=== PATIENT | male | born 1955 | race Caucasian/White ===

== ENCOUNTER → 2020-05-13 | Outpatient (CLI) | payer MEDICARE ==
--- NOTE | 2020-05-13 18:09 | XR ---
Cervical spine HISTORY: Increased neck pain, fall 05/12/2020 8 views of the cervical spine submitted, no comparisons Patient shows posterior cervical fusion change at C3-T1. Cervical vertebral bodies show preserved hei ght and alignment. There is multilevel spondylosis. No evident listhesis on flexion and extension vie ws, the lower cervical spine is not well seen. Oblique images somewhat limited to evaluate foramina, difficult to exclude foraminal encroachment. Odontoid view is limited, questionable lucency present a t the base of the dens. There are dense vascular calcifications present. Bone mineralization is reduc ed. IMPRESSION: Exam is limited for evaluation. Cannot exclude the dens fracture, consider CT scan for be tter evaluation. A Red level critical message alert has been initiated for Ava Herbert MD via the [employer] System on 05/13/2020 6:06 PM. This message alert has been sent to Ava Herbert MD via t he preferences provided by the clinician for the receipt of Radiology Critical Findings. Message ID [id number].
== END | disposition home or self-care (01) ==
LOC: RADXRMAIN 14:08
PROVIDERS: ATTEND Internal Medicine
DX: S12.110A Anterior displaced Type II dens fracture, initial encounter for closed fracture (principal)
CPT/HCPCS: 72052

== ENCOUNTER → 2020-05-25 | Outpatient (CLI) | payer MEDICARE ==
--- NOTE | 2020-05-25 12:10 | CT ---
EXAMINATION TYPE: CT cervical spine wo con DATE OF EXAM: 05/25/2020 COMPARISON: Plain film 05/13/2020 HISTORY: cervical pain post fall post op CT DLP: 662.6 mGycm Automated exposure control for dose reduction was used. TECHNIQUE: CT scan of the cervical spine is obtained without contrast, axial images are obtained, sagittal and c oronal reformatted images are also reviewed. FINDINGS: Nondisplaced type II dens fracture is present as suspected on plain film, possible remote type I dens fracture also seen. Ossification of the posterior longitudinal ligament extends into the spinal vanesa l from C2 level inferiorly through the upper thoracic spine, there is mass effect on the cervical cor d especially at the level of the fracture, spinal stenosis is approximately 8 mm at C2-3 level. Multi level posterior laminectomies are present from C3 through C7, posterior fusion is present from C3 to T1. Multilevel spondylosis is present with loss of disc height. Arthropathy changes are present at th e atlantodens joint. Multilevel foraminal encroachment present to include C2-3 on the left, uncoverte bral joint hypertrophy and facet arthropathy, C3-4 greater on the right, C4-5 left greater than right , C5-6 bilaterally, C6-7 bilaterally As described calcifications present at the carotid bifurcations. Lung apices within normal limits. St ernoclavicular joints show arthropathy change. There is artifact due to patient's posterior hardware. IMPRESSION: Type II dens fracture of questionable age. Remote type I dens fracture also present, suspect arthropa thy changes as described, ossification of posterior longitudinal ligament causing some spinal stenosi s. Multilevel foraminal encroachment, postop changes. A Red level critical message alert has been initiated for Ava Herbert MD via the [email or web address] System on 05/25/2020 12:06 PM. This message alert has been sent to vAa Herbert MD via t sandra preferences provided by the clinician for the receipt of Radiology Critical Findings. Message ID [id number].
== END | disposition home or self-care (01) ==
LOC: RADCTMAIN 09:54
PROVIDERS: ATTEND Internal Medicine
DX: S12.9XXA Fracture of neck, unspecified, initial encounter (principal); Z98.890 Other specified postprocedural states; Z88.1 Allergy status to other antibiotic agents
CPT/HCPCS: 72125

== ENCOUNTER 2020-05-28 11:23 | Emergency (ER) | payer MEDICARE ==
[2020-05-28 11:31] VITALS: RESP 18; TEMP 98
--- NOTE | 2020-05-28 13:57 | ED ---
Neck Injury/Pain HPI - General Chief Complaint: Neck Pain/Injury Stated Complaint: Neck Pain Time Seen by Provider: 05/28/20 11:32 Source: RN notes reviewed Mode of arrival: ambulatory Limitations: no limitations - History of Present Illness Initial Comments: This is a 65-year-old male with a history of Parkinson's disease who fell sometime last week he states he fell forward and seem to catch himself. Base was having some neck pain since then. He follow-up with his doctor and had a CT of the neck done on the ninth of this month. He was finally contacted again he was found have a nondisplaced type II dens fracture was seen on the plain film. He also approximately a remote type I fracture also ossification of the posterior longitudinal ligament extending into the spinal canal from C2 level inferiorly to the upper thoracic spine there was mass effect on the cervical or distress at the level of the fracture, spinal stenosis is approximately 8 mm at the C2 3 level also evidence of previous surgeries with multiple posterior laminectomies and posterior fusion of C3 through T1. No neurological deficits below this level. No numbness tingling or loss of function he does have some neck pain he states he was sent in by his doctor for further evaluation and likely transfer to a tertiary care center. He denies any fevers chills nausea vomiting sweats or other symptoms. He believes he fell due to his Parkinson's disease. He didn't fall from a standing height. Her injuries. MD Complaint: neck pain, neck injury - Related Data Home Medications Medication Instructions Recorded Confirmed Amantadine HCl [Gocovri] 274 mg PO HS 05/28/20 05/28/20 Atorvastatin [Lipitor] 20 mg PO DAILY 05/28/20 05/28/20 Carbidopa-Levodopa 25-250 mg 1 tab PO Q4H 05/28/20 05/28/20 [Sinemet 25-250] Cevimeline [Evoxac] 30 mg PO TID 05/28/20 05/28/20 Fesoterodine Fumarate [Toviaz] 8 mg PO DAILY 05/28/20 05/28/20 Furosemide [Lasix] 40 mg PO BID 05/28/20 05/28/20 HYDROcodone/APAP 10-325MG [[place] 1 tab PO Q4-6H 05/28/20 05/28/20 10-325] Levothyroxine Sodium [Synthroid] 50 mcg PO DAILY 05/28/20 05/28/20 Mirabegron [Myrbetriq] 50 mg PO DAILY 05/28/20 05/28/20 Potassium Chloride 10 meq PO BID 05/28/20 05/28/20 Quinapril HCl [Accupril] 40 mg PO BID 05/28/20 05/28/20 SILVER sulfADIAZINE Cream 1 applic TOPICAL DAILY 05/28/20 05/28/20 [Silvadene 1% Cream] Tamsulosin [Flomax] 0.4 mg PO DAILY 05/28/20 05/28/20 rOPINIRole HCL [Requip] 4 mg PO TID 05/28/20 05/28/20 Allergies Allergy/AdvReac Type Severity Reaction Status Date / Time No Known Allergies Allergy Verified 05/28/20 13:10 Review of Systems ROS Statement: Those systems with pertinent positive or pertinent negative responses have been documented in the HPI. ROS Other: All systems not noted in ROS Statement are negative. Past Medical History Additional Past Medical History / Comment(s): parkinson's, chronic lower back History of Any Multi-Drug Resistant Organisms: None Reported Past Surgical History: Orthopedic Surgery Additional Past Surgical History / Comment(s): L leg Past Psychological History: No Psychological Hx Reported Smoking Status: Current some day smoker Past Alcohol Use History: Occasional Past Drug Use History: Marijuana General Exam - General Exam Comments Initial Comments: this is a well-developed well-nourished awake alert oriented 4 male with a Margi Coma Scale of 15 Limitations: no limitations General appearance: alert, in no apparent distress Head exam: Present: atraumatic, normocephalic, normal inspection Eye exam: Present: normal appearance, PERRL, EOMI. Absent: scleral icterus, conjunctival injection, periorbital swelling ENT exam: Present: normal exam, mucous membranes moist Neck exam: Present: normal inspection. Absent: tenderness, meningismus, lymphadenopathy Respiratory exam: Present: normal lung sounds bilaterally. Absent: respiratory distress, wheezes, rales, rhonchi, stridor Cardiovascular Exam: Present: regular rate, normal rhythm, normal heart sounds. Absent: systolic murmur, diastolic murmur, rubs, gallop, clicks GI/Abdominal exam: Present: soft, normal bowel sounds. Absent: distended, tenderness, guarding, rebound, rigid Extremities exam: Present: normal inspection, full ROM, normal capillary refill. Absent: tenderness, pedal edema, joint swelling, calf tenderness Back exam: Present: normal inspection Neurological exam: Present: alert, oriented X3, CN II-XII intact Psychiatric exam: Present: normal affect, normal mood Skin exam: Present: warm, dry, intact, normal color. Absent: rash Course Vital Signs 05/28/20 11:28 Temperature 98 F Pulse Rate 48 L Respiratory 18 Rate Blood Pressure 119/74 O2 Sat by Pulse 93 L Oximetry Medical Decision Making - Medical Decision Making Did review the imaging and reports I did discuss the case with the patient as well as Dr. Pierce Thomas. He is agreed to accept the patient transfer ER to ER. - EKG Data -: EKG Interpreted by Me EKG shows normal: sinus rhythm Disposition Clinical Impression: C2 cervical fracture, Parkinsons disease Disposition: OTHER INSTITUTION NOT DEFINED Condition: Fair Referrals: Ava Herbert MD [Primary Care Provider] - 1-2 days - Out of Hospital Transfer - Req. Specs Out of Hospital Transfer - Requested Specifics: Other Emergency Center
[2020-05-28] MEDS ORDERED: fentaNYL (PF) 50 MCG/ML 2 ML AMP IV STA (14:25)
[2020-05-28 14:36] VITALS: BP 119/79; PULSE 80
== END 2020-05-28 14:36 | disposition other institution (70) ==
LOC: EC 11:23
DX: S12.112A Nondisplaced Type II dens fracture, initial encounter for closed fracture (principal); G20 Parkinson's disease; G89.29 Other chronic pain; M54.5 Low back pain; F17.200 Nicotine dependence, unspecified, uncomplicated; Z79.899 Other long term (current) drug therapy; Z79.890 Hormone replacement therapy; Z98.1 Arthrodesis status; W19.XXXA Unspecified fall, initial encounter
CPT/HCPCS: 93005; 99284; 96374; J3010

== ENCOUNTER → 2020-09-07 | Outpatient (CLI) | payer MEDICARE ==
--- NOTE | 2020-09-07 15:07 | CT ---
EXAMINATION TYPE: CT cervical spine wo con DATE OF EXAM: 09/07/2020 COMPARISON: 05/25/2020 HISTORY: Non displaced Type II dense fracture. Pt states he fell head first into doorway 10 weeks ago . Pt hx Parkinsons, not able to control any shaking. CT DLP: 823.[address] of the cervical spine was performed with bone and soft tissue window settings submitted . Coronal and sagittal reconstruction is obtained. Again noted are fractures of the dens including type I and type II types. No significant callus forma tion. No acute fractures identified. Extensive postsurgical change of decompressive laminectomy extending from C2-3 through the upper thor acic spine. Pedicular screws are in place. Multilevel fusion. Extensive calcification of the posterio r longitudinal ligament thinning throughout the cervical spine from C2 through T2. Streak artifact fr om patient's surgical hardware limits evaluation. Again noted is moderate multilevel degenerative dis c disease. As described calcifications present at the carotid bifurcations. Lung apices within normal limits. St ernoclavicular joints show arthropathy change. IMPRESSION: 1. Ununited type I and type II fractures of the dens unchanged from prior study. 2. Extensive postsurgical change. 3. Severe calcification of the posterior longitudinal ligament
== END | disposition home or self-care (01) ==
LOC: RADCTMAIN 14:29
PROVIDERS: ATTEND Internal Medicine
DX: S12.112A Nondisplaced Type II dens fracture, initial encounter for closed fracture (principal)
CPT/HCPCS: 72125

== ENCOUNTER 2021-03-09 23:16 | Emergency (ER) | payer MEDICARE ==
[2021-03-09 23:35] VITALS: TEMP 98.1
--- NOTE | 2021-03-10 00:11 | ED ---
Fall HPI - General Chief Complaint: Fall Stated Complaint: Possible Broken Neck, fell today Time Seen by Provider: 03/09/21 23:39 Source: patient, RN notes reviewed, old records reviewed Mode of arrival: wheelchair Limitations: no limitations - History of Present Illness Initial Comments: This is a 65-year-old male DF for evaluation he rodney from Parkinson's disease. Patient of fall from standing. Patient complaining of severe neck pain with history of neck surgery. Patient is a mildly poor strain secondary to clinical condition. Patient's follows from standing over his dog prior to arrival. Otherwise no headache chest pain shortness breath or abdominal pain just pain in the back of his neck. Patient Dese feels like he broke a bone he presents in his own cervical collar MD Complaint: fall -: hour(s) Fall From: standing When Fall Occurred: 1 hour [employer] Fall Witnessed: no Place Fall Occurred: home Loss of Consciousness: none Prolonged Down Time?: no Symptoms Prior to Fall: none Location: neck Severity: severe Severity scale (1-10): 7 Quality: sharp Context: tripped/slipped Associated Symptoms: denies - Related Data Home Medications Medication Instructions Recorded Confirmed Amantadine HCl [Gocovri] 274 mg PO HS 05/28/20 05/28/20 Atorvastatin [Lipitor] 20 mg PO DAILY 05/28/20 05/28/20 Carbidopa-Levodopa 25-250 mg 1 tab PO Q4H 05/28/20 05/28/20 [Sinemet 25-250] Cevimeline [Evoxac] 30 mg PO TID 05/28/20 05/28/20 Fesoterodine Fumarate [Toviaz] 8 mg PO DAILY 05/28/20 05/28/20 Furosemide [Lasix] 40 mg PO BID 05/28/20 05/28/20 HYDROcodone/APAP 10-325MG [[place] 1 tab PO Q4-6H 05/28/20 05/28/20 10-325] Levothyroxine Sodium [Synthroid] 50 mcg PO DAILY 05/28/20 05/28/20 Mirabegron [Myrbetriq] 50 mg PO DAILY 05/28/20 05/28/20 Potassium Chloride [Potassium 10 meq PO BID 05/28/20 05/28/20 Chloride ER] Quinapril HCl [Accupril] 40 mg PO BID 05/28/20 05/28/20 SILVER sulfADIAZINE Cream 1 applic TOPICAL DAILY 05/28/20 05/28/20 [Silvadene 1% Cream] Tamsulosin [Flomax] 0.4 mg PO DAILY 05/28/20 05/28/20 rOPINIRole HCL [Requip] 4 mg PO TID 05/28/20 05/28/20 Allergies Allergy/AdvReac Type Severity Reaction Status Date / Time No Known Allergies Allergy Verified 03/09/21 23:35 Review of Systems ROS Statement: Those systems with pertinent positive or pertinent negative responses have been documented in the HPI. ROS Other: All systems not noted in ROS Statement are negative. Past Medical History Additional Past Medical History / Comment(s): parkinson's, chronic lower back History of Any Multi-Drug Resistant Organisms: MRSA Date of last positivie culture/infection: 08/17/20 MDRO Source:: MRSA KNEE Past Surgical History: Orthopedic Surgery Additional Past Surgical History / Comment(s): L leg Past Psychological History: No Psychological Hx Reported Smoking Status: Current some day smoker Past Alcohol Use History: Occasional Past Drug Use History: Marijuana General Exam - General Exam Comments Initial Comments: GCS of 15 Airways patent Trachea is midline Breath sounds equal bilaterally Limitations: no limitations General appearance: alert, in no apparent distress Head exam: Present: atraumatic, normocephalic, normal inspection Eye exam: Present: normal appearance, PERRL, EOMI. Absent: scleral icterus, conjunctival injection, periorbital swelling ENT exam: Present: normal exam, mucous membranes moist Neck exam: Present: normal inspection. Absent: tenderness, meningismus, lymphadenopathy Respiratory exam: Present: normal lung sounds bilaterally. Absent: respiratory distress, wheezes, rales, rhonchi, stridor Cardiovascular Exam: Present: regular rate, normal rhythm, normal heart sounds. Absent: systolic murmur, diastolic murmur, rubs, gallop, clicks GI/Abdominal exam: Present: soft, normal bowel sounds. Absent: distended, tenderness, guarding, rebound, rigid Extremities exam: Present: normal inspection, full ROM, normal capillary refill. Absent: tenderness, pedal edema, joint swelling, calf tenderness Back exam: Present: normal inspection Neurological exam: Present: alert, oriented X3, CN II-XII intact Psychiatric exam: Present: normal affect, normal mood Skin exam: Present: warm, dry, intact, normal color. Absent: rash Course Vital Signs 03/09/21 03/10/21 23:31 01:35 Temperature 98.1 F Pulse Rate 75 87 Respiratory 18 18 Rate Blood Pressure 140/75 124/86 O2 Sat by Pulse 99 98 Oximetry - Reevaluation(s) Reevaluation #1: 03/10/21 02:48 Medical record is reviewed Reevaluation #2: 03/10/21 02:49 Patient informed results questions have been answered Reevaluation #3: 03/10/21 02:49 Patient's pain is controlled with Medical Decision Making - Medical Decision Making 65 male to the emergency room today. Patient presents today for evaluation re gards to fall from standing with C2 spine fracture. - Lab Data Result diagrams: 03/10/21 02:18 03/10/21 02:18 Lab Results 03/10/21 03/10/21 03/10/21 Range/Units 02:18 02:18 02:18 WBC 9.6 (3.8-10.6) k/uL RBC 5.04 (4.30-5.90) m/uL Hgb 14.5 (13.0-17.5) gm/dL Hct 44.3 (39.0-53.0) % MCV 87.8 (80.0-100.0) fL MCH 28.7 (25.0-35.0) pg MCHC 32.7 (31.0-37.0) g/dL RDW 14.3 (11.5-15.5) % Plt Count 287 (150-450) k/uL MPV 7.1 Neutrophils % 70 % Lymphocytes % 19 % Monocytes % 6 % Eosinophils % 3 % Basophils % 1 % Neutrophils # 6.7 (1.3-7.7) k/uL Lymphocytes # 1.8 (1.0-4.8) k/uL Monocytes # 0.6 (0-1.0) k/uL Eosinophils # 0.3 (0-0.7) k/uL Basophils # 0.1 (0-0.2) k/uL PT 10.5 (9.0-12.0) sec INR 1.0 (<1.2) APTT 25.7 (22.0-30.0) sec Sodium 139 (137-145) mmol/L Potassium 3.9 (3.5-5.1) mmol/L Chloride 101 (98-107) mmol/L Carbon Dioxide 30 (22-30) mmol/L Anion Gap 8 mmol/L BUN 23 H (9-20) mg/dL Creatinine 0.72 (0.66-1.25) mg/dL Est GFR (CKD-EPI)AfAm >90 (>60 ml/min/1.73 sqM) Est GFR (CKD-EPI)NonAf >90 (>60 ml/min/1.73 sqM) Glucose 108 H (74-99) mg/dL Calcium 9.5 (8.4-10.2) mg/dL Phosphorus 3.4 (2.5-4.5) mg/dL Magnesium 2.3 (1.6-2.3) mg/dL Total Bilirubin 0.5 (0.2-1.3) mg/dL AST 24 (17-59) U/L ALT 7 (4-49) U/L Alkaline Phosphatase 117 (38-126) U/L Troponin I (0.000-0.034) ng/mL Total Protein 7.0 (6.3-8.2) g/dL Albumin 3.9 (3.5-5.0) g/dL 03/10/21 Range/Units 02:18 WBC (3.8-10.6) k/uL RBC (4.30-5.90) m/uL Hgb (13.0-17.5) gm/dL Hct (39.0-53.0) % MCV (80.0-100.0) fL MCH (25.0-35.0) pg MCHC (31.0-37.0) g/dL RDW (11.5-15.5) % Plt Count (150-450) k/uL MPV Neutrophils % % Lymphocytes % % Monocytes % % Eosinophils % % Basophils % % Neutrophils # (1.3-7.7) k/uL Lymphocytes # (1.0-4.8) k/uL Monocytes # (0-1.0) k/uL Eosinophils # (0-0.7) k/uL Basophils # (0-0.2) k/uL PT (9.0-12.0) sec INR (<1.2) APTT (22.0-30.0) sec Sodium (137-145) mmol/L Potassium (3.5-5.1) mmol/L Chloride (98-107) mmol/L Carbon Dioxide (22-30) mmol/L Anion Gap mmol/L BUN (9-20) mg/dL Creatinine (0.66-1.25) mg/dL Est GFR (CKD-EPI)AfAm (>60 ml/min/1.73 sqM) Est GFR (CKD-EPI)NonAf (>60 ml/min/1.73 sqM) Glucose (74-99) mg/dL Calcium (8.4-10.2) mg/dL Phosphorus (2.5-4.5) mg/dL Magnesium (1.6-2.3) mg/dL Total Bilirubin (0.2-1.3) mg/dL AST (17-59) U/L ALT (4-49) U/L Alkaline Phosphatase (38-126) U/L Troponin I <0.012 (0.000-0.034) ng/mL Total Protein (6.3-8.2) g/dL Albumin (3.5-5.0) g/dL - Radiology Data Radiology results: report reviewed (2. C-spine positive for C2 fracture chest and pelvis x-ray negative for acute disease), image reviewed Disposition Clinical Impression: Fall, Cervical spine fracture, Fracture of cervical spinous process Disposition: OTHER INSTITUTION NOT DEFINED Condition: Fair Is patient prescribed a controlled substance at d/c from ED?: No Referrals: None,Stated [REFERRING] - 1-2 days
--- NOTE | 2021-03-10 01:27 | CT ---
EXAMINATION TYPE: CT brain cspine wo con DATE OF EXAM: 03/10/2021 COMPARISON: CT scan cervical spine 09/07/2020. HISTORY: fall Pain CT DLP: 1540.1 mGycm Automated exposure control for dose reduction was used. Ventricles have normal size. There is no mass effect nor midline shift. There is no sign of intracran ial hemorrhage. Calvarium is intact. There is no evidence of cerebral edema. Skull base is intact. Th ere is normal aeration of the mastoid sinuses. There is straightening of the cervical spine. There is calcification in the posterior longitudinal li gament through the entire cervical spine. There is posterior fusion surgery with rods and screws from the level of C3-T1 level. There is transverse fracture through the odontoid process. There is fractu re of the spinous process of C2 without displacement. There is multilevel posterior laminectomy defec t in the cervical spine. IMPRESSION: No acute intracranial abnormality. There is nondisplaced odontoid process fracture without significant change in position compared to la st exam. Extensive calcification along the posterior longitudinal ligament with thickening not changed compare d to old exam. There is an acute fracture of the spinous process of C2 vertebra which is a change compared to old ex am.
[2021-03-10] MEDS ORDERED: MORPHINE SULFATE 4 MG/ML SYRINGE IM STA (01:39)
[2021-03-10] MEDS ORDERED: SODIUM CHLORIDE 0.9% 1,000 ML IV STA (02:05)
[2021-03-10] MEDS ORDERED: MORPHINE SULFATE 4 MG/ML SYRINGE IV STA (02:05)
--- NOTE | 2021-03-10 02:29 | XR ---
EXAMINATION TYPE: XR pelvis AP view DATE OF EXAM: 03/10/2021 COMPARISON: NONE HISTORY: Fall. Pain TECHNIQUE: Single view FINDINGS: Pelvic ring is intact. There is hypertrophic acetabular spurring. Hip joint spaces are fair ly normal. There is some deformity of the right inferior pubic ramus. This could be an acute nondispl aced fracture. IMPRESSION: Possible nondisplaced acute fracture right inferior pubic ramus. Osteoarthritis in both h ip joints. No hip fracture.
--- NOTE | 2021-03-10 02:31 | XR ---
EXAMINATION TYPE: XR chest 1V DATE OF EXAM: 03/10/2021 COMPARISON: NONE HISTORY: Fall. Trauma. TECHNIQUE: Single view FINDINGS: Heart appears enlarged. There is no heart failure. Lungs are clear of consolidation. There is some coarsening of interstitial markings. There is no pleural effusion. There are arthritic change s in the shoulder joints. IMPRESSION: Cardiomegaly. Mild pulmonary fibrosis. No heart failure.
[2021-03-10 02:41] LABS: Basophils # (A) 0.1 k/uL (0-0.2); Basophils % (A) 1 %; Eosinophils # (A) 0.3 k/uL (0-0.7); Eosinophils % (A) 3 %; HCT 44.3 % (39.0-53.0); HGB 14.5 gm/dL (13.0-17.5); Lymphocytes # (A) 1.8 k/uL (1.0-4.8); Lymphocytes % (A) 19 %; MCH 28.7 pg (25.0-35.0); MCHC 32.7 g/dL (31.0-37.0); MCV 87.8 fL (80.0-100.0); Mean Platelet Volume 7.1; Monocytes # (A) 0.6 k/uL (0-1.0); Monocytes % (A) 6 %; Neutrophils # (A) 6.7 k/uL (1.3-7.7); Neutrophils % (A) 70 %; Platelet Count 287 k/uL (150-450); RBC 5.04 m/uL (4.30-5.90); RDW 14.3 % (11.5-15.5); WBC 9.6 k/uL (3.8-10.6)
[2021-03-10 02:46] LABS: Partial Thromboplastin Time 25.7 sec (22.0-30.0); Prothrombin Time 10.5 sec (9.0-12.0)
[2021-03-10 03:02] LABS: ALT 7 U/L (4-49); AST 24 U/L (17-59); African American GFR (CKD) >90 (>60 ml/min/1.73 sqM); Albumin 3.9 g/dL (3.5-5.0); Alkaline Phosphatase 117 U/L (38-126); Anion Gap 8 mmol/L; Blood Urea Nitrogen 23 mg/dL (9-20); Calcium 9.5 mg/dL (8.4-10.2); Carbon Dioxide 30 mmol/L (22-30); Chloride 101 mmol/L (98-107); Glucose 108 mg/dL (74-99); Magnesium 2.3 mg/dL (1.6-2.3); Non-African American GFR(CKD) >90 (>60 ml/min/1.73 sqM); Phosphorus 3.4 mg/dL (2.5-4.5); Potassium 3.9 mmol/L (3.5-5.1); Sodium 139 mmol/L (137-145); Total Bilirubin 0.5 mg/dL (0.2-1.3)
[2021-03-10 05:43] VITALS: BP 116/70; PULSE 88; RESP 16
== END 2021-03-10 05:04 | disposition other institution (70) ==
LOC: EC 23:16
DX: S12.9XXA Fracture of neck, unspecified, initial encounter (principal); F12.90 Cannabis use, unspecified, uncomplicated; G20 Parkinson's disease; W01.0XXA Fall on same level from slipping, tripping and stumbling without subsequent striking against object, initial encounter
CPT/HCPCS: 36415; 80053; 83735; 84100; 84484; 85025; 85610; 85730; 72170; 71045; 72125; 70450; 99284; 96374; 96361; J2270

== ENCOUNTER 2021-09-09 11:12 | Observation (INO) | payer MEDICARE, OTHER ==
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
[2021-09-09 12:02] LABS: Basophils # (A) 0.1 k/uL (0-0.2); Basophils % (A) 1 %; Eosinophils # (A) 0.2 k/uL (0-0.7); Eosinophils % (A) 3 %; HCT 48.9 % (39.0-53.0); HGB 15.6 gm/dL (13.0-17.5); Lymphocytes # (A) 1.7 k/uL (1.0-4.8); Lymphocytes % (A) 22 %; MCH 29.4 pg (25.0-35.0); MCHC 31.9 g/dL (31.0-37.0); MCV 92.3 fL (80.0-100.0); Mean Platelet Volume 7.6; Monocytes # (A) 0.3 k/uL (0-1.0); Monocytes % (A) 5 %; Neutrophils # (A) 5.1 k/uL (1.3-7.7); Neutrophils % (A) 68 %; Platelet Count 239 k/uL (150-450); RDW 12.8 % (11.5-15.5); WBC 7.6 k/uL (3.8-10.6)
[2021-09-09 12:15] LABS: ALT 6 U/L (4-49); AST 26 U/L (17-59); African American GFR (CKD) >90 (>60 ml/min/1.73 sqM); Albumin 3.9 g/dL (3.5-5.0); Alkaline Phosphatase 106 U/L (38-126); Anion Gap 6 mmol/L; Blood Urea Nitrogen 23 mg/dL (9-20); Calcium 9.1 mg/dL (8.4-10.2); Carbon Dioxide 29 mmol/L (22-30); Chloride 105 mmol/L (98-107); Glucose 109 mg/dL (74-99); Magnesium 2.2 mg/dL (1.6-2.3); Non-African American GFR(CKD) >90 (>60 ml/min/1.73 sqM); Sodium 140 mmol/L (137-145); Total Bilirubin 0.5 mg/dL (0.2-1.3); Total Protein 6.9 g/dL (6.3-8.2)
[2021-09-09 12:28] LABS: INR 0.9 (<1.2); Partial Thromboplastin Time 22.1 sec (22.0-30.0); Prothrombin Time 10.4 sec (9.0-12.0)
[2021-09-09 12:32] LABS: T4, Free (Free Thyroxine) 0.88 ng/dL (0.78-2.19)
--- NOTE | 2021-09-09 12:37 | XR ---
EXAMINATION TYPE: XR chest 2V DATE OF EXAM: 09/09/2021 COMPARISON: Chest x-ray March 10, 2021 HISTORY: Dysrhythmia. Parkinson's disease. TECHNIQUE: Frontal and lateral views of the chest are obtained. FINDINGS: There is chronic parenchymal changes bilaterally without suspicious new focal air space op acity, pleural effusion, or pneumothorax seen. Improvement inspiration current study. The cardiomega ly redemonstrated. Surgical change to the cervical spine is partially imaged. IMPRESSION: Chronic changes and cardiomegaly without acute pulmonary process. No significant change from prior.
[2021-09-09] MEDS ORDERED: NALOXONE 0.4 MG/ML 1 ML VIAL IV PRN (13:54)
[2021-09-09] MEDS: SODIUM CHLORIDE 0.9% 1,000 ML IV SCH (14:55)
[2021-09-09] MEDS ORDERED: MEDIHONEY TOPICAL SCH (15:45)
--- NOTE | 2021-09-09 15:47 | P.HPIM ---
History of Present Illness H&P Date: 09/09/21 Chief Complaint: left lower extremity cellulitis recurrent/possible SVT. HISTORY OF PRESENT ILLNESS: this is a 66-year-old white male with a previous medical history significant for hypertension and hypertensive cardiovascular disease, hyperlipidemia, history of detrusor stability, Percocet disease, with the significant tremor, and significant gait dysfunction with recurrent cellulitis of the left lower extremity and prior history of osteomyelitis of the left knee and multiple hospitalization of the left lower extremity cellulitis mostly at [facility], history of degenerative disc disease of the cervical spine with posterior cervical discectomy with fusion and history of C1 and C2 fracture was under the care of neurosurgery no surgical intervention was in a hard cervical collar that was removed by the neurosurgeon, patient has not been seen by myself since February of last year after he was moved to a program called [facility] pain is in [place] and they would not allow him to come and see me as a primary care physician, since they have their own physician he has been under the care of Dr. Kourtney Landa, and patient was brought into the ER at [facility] today because of increased cellulitis of the left lower extremity despite current treatment plan, and patient became quite a bit diaphoretic and short of breath, his heart rate was in the range of 200 however there was no rhythm strips or any records available at the time of evaluation, patient was seen in the emergency department, he was started on IV antibiotic in the form of Ancef he was admitted to the hospital to a telemetry unit, we will be seen in consultation by cardiology as well as by infectious disease. REVIEW OF SYSTEMS: Constitutional: No documented fever, no chills, no night sweats. No weight change. no weakness, fatigue or lethargy. No daytime sleepiness. HEENT: No headache. No blurred vision or double vision, no loss of vision. No loss of Hearing, no ringing in the ears, no dizziness. No nasal drainage or congestion. No epistaxis. No sore throat. Lungs: No shortness of breath, no cough, no sputum production. No wheezing. Reports dyspnea with activity. Cardiovascular: No chest pain, positive for lower extremity edema. No palpitations. No paroxysmal nocturnal dyspnea. No orthopnea. positive for lightheadedness or dizziness. No syncopal episodes. Abdominal: Reports abdominal pain. No nausea, vomiting. No diarrhea. No constipation. No bloody or tarry stools reports loss of appetite. Genitourinary: No dysuria, increased frequency, urgency. No urinary retention. Musculoskeletal: No myalgias. positive for muscle weakness, positive for gait dysfunction,positive for frequent falls.positive for back pain and neck pain. Integumentary: there is left knee wounds that is shallow with clean base , there is nail changes , there is redness with warmth to the left lower extremity Neurologic: No aphasia. No facial droop. No change in mentation. No head injury. No headache. No paralysis. No paresthesia. Psychiatric: positive for depression. No anxiety. No mood swings. Endocrine: No abnormal blood sugars. No weight change. PAST MEDICAL HISTORY: Parkinson disease. Hypertension and hypertensive cardiovascular disease Hyperlipidemia Detrusor stability. C2 fracture. Spondylosis of the cervical spine status post posterior cervical discectomy with fusion Chronic cellulitis of the left lower extremity. Enlarged prostate. Hypothyroidism. PAST SURGICAL HISTORY: left leg surgery Posterior cervical discectomy with fusion SOCIAL HISTORY: patient used to smoke about pack every day he smoked for about 5-10 years, he quit smoking after that, he denies any alcohol ingestion no drug use or abuse, he currently resides at home and he is part of [facility] program that they have their own primary care physicians. FAMILY HISTORY: father at the age of 82 from metastatic prostate cancer mother from emphysema patient had a brother who at age of 58 from lung cancer patient had 2 sisters one of breast cancer and COPD and the other one of diabetes complication patient has one daughter who is healthy PHYSICAL EXAMINATION: General: 66-year-old male laying down in bed in no distress. HEENT: Head is atraumatic, normocephalic, pupils were equal round reactive to light and recommendation, extraocular muscle movement were intact, sclera nonicteric, conjunctivae were pale, mucous membranes of the mouth are somewhat dry. Neck: Supple, no JVP, normal carotid upstroke bilaterally, no lymphadenopathy. Chest: Decreased breath sounds at the bases, few rhonchi, no expiratory wheezes, no chest wall tenderness, no intercostal retractions. Heart: First heart sound is normal, second heart sound is normal there is systolic exertion murmur 2/6 located in the left sternal border. Abdomen: Soft, nontender, nondistended, positive bowel sounds, no hepatosplenomegaly. Extremities: there is +2 edema, no calf tenderness, the left lower extremity with significant erythema extending from the ankle all the way up to the knee with a wound that is shallow at the left knee suggestive of cellulitis, dorsalis pedis +1 bilaterally. Neurologic examination: Patient is awake alert and oriented X3, cranial nerves II-12 appear grossly intact, muscle power were 4 out of 5 in upper extremities and 4 out of 5 in bilateral lower extremities, deep tendon reflexes were depressed bilaterally, significant tremors especially in the right upper extremity, significant stiffness in both lower extremities. ASSESSMENT AND PLAN: 1. left lower extremity cellulitis Start the patient on Silvadene cream 1% to be applied once every day with an Noam wrap start the patient on cefazolin 2 g IV piggyback every 8 hours, keep the leg elevated, check C-reactive protein, repeat CBC tomorrow morning, infectious disease consultation, follow-up with the patient. Continue to apply Medihoney to the left knee wound. 2. Reported episodes of palpitations with presyncope without documentation of arrhythmia. Place the patient on telemetry unit obtain cardiology consultation. Echocardiogram along with carotid ultrasound. Discontinue Lasix start the patient on IV fluid resuscitation the form of normal saline at 75 mL an hour to rule out any orthostatic hypotension. 3. Hypertension and hypertensive cardiovascular disease . continue quinapril 40 mg orally twice every day. 4. hyperlipidemia.continue atorvastatin 20 mg orally once a day. 5. Parkinson disease.continue patient on Sinemet 25/250 one tablet 5 times every day, continue amantadine 200 mg orally twice every day, continue Requip 4 mg orally 3 times every day. 6. Detrusor instability.continue Myrbetriq 50 mg orally once every day. 7. Enlarged prostate .continue Flomax 0.4 mg once every day. 8. Hypothyroidism.continue patient on levothyroxin 50 g orally once every day. 9. DVT prophylaxis. Lovenox 40 mg subcutaneously every 24 hours 10. GI prophylaxis. Protonix 40 mg orally once every day. 11. Admitted to inpatient. Estimated length of stay 2 midnights. 12. Full code. Past Medical History Additional Past Medical History / Comment(s): parkinson's, chronic lower back History of Any Multi-Drug Resistant Organisms: MRSA Date of last positivie culture/infection: 08/17/20 MDRO Source:: MRSA KNEE Past Surgical History: Orthopedic Surgery Additional Past Surgical History / Comment(s): L leg Past Psychological History: No Psychological Hx Reported Smoking Status: Current some day smoker Past Alcohol Use History: Occasional Past Drug Use History: Marijuana Medications and Allergies Home Medications Medication Instructions Recorded Confirmed Type Atorvastatin [Lipitor] 20 mg PO HS 05/28/20 09/09/21 History Carbidopa-Levodopa 25-250 mg 1 tab PO Q8H 05/28/20 09/09/21 History [Sinemet 25-250] Furosemide [Lasix] 40 mg PO BID 05/28/20 09/09/21 History Levothyroxine Sodium [Synthroid] 50 mcg PO DAILY 05/28/20 09/09/21 History Mirabegron [Myrbetriq] 50 mg PO DAILY 05/28/20 09/09/21 History Potassium Chloride [Potassium 10 meq PO BID 05/28/20 09/09/21 History Chloride ER] Quinapril HCl [Accupril] 40 mg PO BID 05/28/20 09/09/21 History SILVER sulfADIAZINE Cream 1 applic TOPICAL DAILY 05/28/20 09/09/21 History [Silvadene 1% Cream] Tamsulosin [Flomax] 0.4 mg PO HS 05/28/20 09/09/21 History rOPINIRole HCL [Requip] 4 mg PO TID 05/28/20 09/09/21 History Carbidopa-Levodopa 25-250 mg 1 tab PO BID PRN 09/09/21 09/09/21 History [Sinemet 25-250] Medihoney 80% Gel 1 applic TOPICAL DAILY 09/09/21 09/09/21 History amantadine HCL 200 mg PO BID 09/09/21 09/09/21 History Allergies Allergy/AdvReac Type Severity Reaction Status Date / Time No Known Allergies Allergy Verified 09/09/21 15:00 Physical Exam Vitals: Vital Signs Temp Pulse Resp BP Pulse Ox 09/09/21 14:55 85 18 173/79 96 09/09/21 11:46 75 18 140/86 96 09/09/21 11:16 98 F 87 18 138/69 94 L Intake and Output 09/09/21 09/09/21 09/09/21 06:59 14:59 22:59 Other: Weight 113.398 kg Results CBC & Chem 7: 09/09/21 11:52 09/09/21 11:52 Labs: Abnormal Lab Results - Last 24 Hours (Table) 09/09/21 Range/Units 11:52 BUN 23 H (9-20) mg/dL Glucose 109 H (74-99) mg/dL
[2021-09-09] MEDS: CARBIDOPA-LEVODOPA 25-250 MG 1 EACH TAB PO SCH ×2 (19:15→23:52)
[2021-09-09] MEDS: SILVER sulfADIAZINE Cream 400 GM 1 APPLIC APPLIC TOPICAL SCH (19:15)
[2021-09-09] MEDS: rOPINIRole HCL 4 MG TABLET PO SCH ×2 (19:16→21:33)
[2021-09-09] MEDS: TAMSULOSIN 0.4 MG CAP.ER.24H PO SCH (21:15)
[2021-09-09] MEDS: DOCUSATE 100 MG CAP PO SCH (21:15)
[2021-09-09] MEDS: lisinopriL 20 MG TAB PO SCH (21:15)
[2021-09-09] MEDS: ATORVASTATIN 20 MG TAB PO SCH (21:15)
--- NOTE | 2021-09-09 22:27 | P.CONS ---
History of Present Illness - Reason for Consult Consult date: 09/09/21 - History of Present Illness Patient is a 66-year male with a past medical history significant for hypertension hypertensive heart disease hyperlipidemia in this patient did have a chronic nonhealing wound to the left knee area previous history of trauma and history of recurrent left lower extremity cellulitis patient presenting to [facility] ER concerning for increasing swelling redness to the left low er extremity apparently has been getting worse for the last few days patient denies having history of any trauma did have mild dull aching pain, 3-4 out of 10 no radiation with increasing swelling and redness and no foul-smelling drainage, patient on presentation to the hospital was afebrile patient did have normal white count kidney function was normal troponins are negative levels in the normal blood culture has been obtained as well as a culture from his left leg wound patient was started on cefazolin has been admitted to hospital infectious disease was consulted for further management of antibiotic therapy Past Medical History Additional Past Medical History / Comment(s): parkinson's, chronic lower back History of Any Multi-Drug Resistant Organisms: MRSA Year Discovered:: 08/17/20 MDRO Source:: MRSA KNEE Past Surgical History: Orthopedic Surgery Additional Past Surgical History / Comment(s): L leg Past Psychological History: No Psychological Hx Reported Smoking Status: Current some day smoker Past Alcohol Use History: Occasional Past Drug Use History: Marijuana - Past Family History Father History Unknown: Yes Family Medical History: Cancer Additional Family Medical History / Comment(s): prostate CA Medications and Allergies Home Medications Medication Instructions Recorded Confirmed Type Atorvastatin [Lipitor] 20 mg PO HS 05/28/20 09/09/21 History Carbidopa-Levodopa 25-250 mg 1 tab PO Q8H 05/28/20 09/09/21 History [Sinemet 25-250] Furosemide [Lasix] 40 mg PO BID 05/28/20 09/09/21 History Levothyroxine Sodium [Synthroid] 50 mcg PO DAILY 05/28/20 09/09/21 History Mirabegron [Myrbetriq] 50 mg PO DAILY 05/28/20 09/09/21 History Potassium Chloride [Potassium 10 meq PO BID 05/28/20 09/09/21 History Chloride ER] Quinapril HCl [Accupril] 40 mg PO BID 05/28/20 09/09/21 History SILVER sulfADIAZINE Cream 1 applic TOPICAL DAILY 05/28/20 09/09/21 History [Silvadene 1% Cream] Tamsulosin [Flomax] 0.4 mg PO HS 05/28/20 09/09/21 History rOPINIRole HCL [Requip] 4 mg PO TID 05/28/20 09/09/21 History Carbidopa-Levodopa 25-250 mg 1 tab PO BID PRN 09/09/21 09/09/21 History [Sinemet 25-250] Medihoney 80% Gel 1 applic TOPICAL DAILY 09/09/21 09/09/21 History amantadine HCL 200 mg PO BID 09/09/21 09/09/21 History Allergies Allergy/AdvReac Type Severity Reaction Status Date / Time No Known Allergies Allergy Verified 09/09/21 15:00 Physical Exam Vitals: Vital Signs Temp Pulse Resp BP Pulse Ox 09/09/21 11:46 75 18 140/86 96 09/09/21 11:16 98 F 87 18 138/69 94 L Intake and Output 09/08/21 09/09/21 09/09/21 22:59 06:59 14:59 Other: Weight 113.398 kg Results CBC & Chem 7: 09/09/21 11:52 09/09/21 11:52 Labs: Abnormal Lab Results - Last 24 Hours (Table) 09/09/21 Range/Units 11:52 BUN 23 H (9-20) mg/dL Glucose 109 H (74-99) mg/dL Assessment and Plan Plan: 1patient presented hospital with increasing swelling redness of left lower extremity in the setting of chronic nonhealing wound to the left knee area likely from gram-positive skin maría elena with no evidence of any abscess clinically. 2Marked area of the redness. 3blood and local cultures will be followed. 4cefazolin 2 g every 8 hours to continue. We will follow on clinical condition and cultures to further adjust medication if needed Thank you for this consultation will follow this patient along with you Time with Patient: Greater than 30
[2021-09-10] MEDS: PANTOPRAZOLE 40 MG TABLET PO SCH (06:15)
[2021-09-10] MEDS: LEVOTHYROXINE 50 MCG TAB PO SCH (06:15)
[2021-09-10] MEDS: SODIUM CHLORIDE 0.9% 1,000 ML IV SCH ×2 (08:01→16:54)
[2021-09-10] MEDS: DOCUSATE 100 MG CAP PO SCH ×2 (08:02→20:12)
[2021-09-10] MEDS: rOPINIRole HCL 4 MG TABLET PO SCH ×3 (08:02→21:13)
[2021-09-10] MEDS: CARBIDOPA-LEVODOPA 25-250 MG 1 EACH TAB PO SCH ×3 (08:02→23:16)
[2021-09-10] MEDS: lisinopriL 20 MG TAB PO SCH ×2 (08:02→20:12)
[2021-09-10] MEDS: SILVER sulfADIAZINE Cream 400 GM 1 APPLIC APPLIC TOPICAL SCH (08:03)
[2021-09-10] MEDS: NON FORMULARY DRUG (Mirabegron [Myrbetriq] 50 MG Tab.Er.24h) PO SCH (08:03)
[2021-09-10] MEDS: ENOXAPARIN 40 MG/0.4 ML SYRINGE SQ SCH (08:03)
--- NOTE | 2021-09-10 09:01 | P.CRDCN ---
History of Present Illness History of present illness: HISTORY OF PRESENTING ILLNESS Patient is a pleasant 66-year-old male with history of hypertension, hyperlipidemia, recurrent left lower extremity cellulitis over the past year, apparent osteomyelitis, Parkinson's disease who presents secondary to worsening left lower extremity cellulitis. He denies any other significant symptoms such as chest pain, shortness breath. Cardiology was consult to secondary to arrhythmia. He denies any history of heart arrhythmias, heart attack, heart cat heterization, stents. On review of telemetry he has had a number of episodes of wide-complex rhythm which appears to correspond with shaking from his Parkinson's. There is no evidence of any ventricular tachycardia or other arrhythmia. He denies any history of syncope or lightheadedness. Denies any palpitations. He still believes he has had a echocardiogram the last year at [facility]. EKG shows sinus rhythm, normal axis, no significant ST or T wave abnormalities. Troponin noted. Normal 3. TSH noted to be normal. REVIEW OF SYSTEMS At the time of my exam: CONSTITUTIONAL: Denies fever or chills. CARDIOVASCULAR: Denies chest pain, shortness of breath, orthopnea, PND or pal pitations. RESPIRATORY: Denies cough. GASTROINTESTINAL: Denies abdominal pain, diarrhea, constipation, nausea or vomiting. MUSCULOSKELETAL: Denies myalgias. NEUROLOGIC: Denies numbness, tingling or weakness. ENDOCRINE: Denies fatigue, weight change, polydipsia or polyurina. GENITOURINARY: Denies burning, hematuria or urgency with micturation. HEMATOLOGIC: Denies history of anemia or bleeding. PHYSICAL EXAMINATION Vital signs reviewed. CONSTITUTIONAL: No apparent distress. HEENT: Head is normocephalic. Pupils are equal, round. Sclerae anicteric. Mucous membranes of the mouth are moist. No JVD. No carotid bruit. CHEST EXAMINATION: Lungs are clear to auscultation. No chest wall tenderness is noted on palpation or with deep breathing. HEART EXAMINATION: Regular rate and rhythm. S1, S2 heard. No murmurs, gallops or rub. ABDOMEN: Soft, nontender. Positive bowel sounds. EXTREMITIES: 2+ peripheral pulses, no lower extremity edema and no calf tenderness. +LLE cellulitis NEUROLOGIC EXAMINATION: Patient is awake, alert and oriented x3. ASSESSMENT 1. Wide-complex rhythm noted on telemetry consistent with artifact from tremors 2. Hypertension 3. Cellulitis PLAN No significant arrhythmias noted on telemetry. Wide-complex tachyarrhythmia consistent with artifact. Patient not having any significant cardiac symptoms and no further workup from a cardiology standpoint at this time. Past Medical History Additional Past Medical History / Comment(s): parkinson's, chronic lower back History of Any Multi-Drug Resistant Organisms: MRSA Date of last positivie culture/infection: 08/17/20 MDRO Source:: MRSA KNEE Past Surgical History: Orthopedic Surgery Additional Past Surgical History / Comment(s): L leg Past Psychological History: No Psychological Hx Reported Smoking Status: Current some day smoker Past Alcohol Use History: Occasional Past Drug Use History: Marijuana - Past Family History Father History Unknown: Yes Family Medical History: Cancer Additional Family Medical History / Comment(s): prostate CA Medications and Allergies Home Medications Medication Instructions Recorded Confirmed Type Atorvastatin [Lipitor] 20 mg PO HS 05/28/20 09/09/21 History Carbidopa-Levodopa 25-250 mg 1 tab PO Q8H 05/28/20 09/09/21 History [Sinemet 25-250] Furosemide [Lasix] 40 mg PO BID 05/28/20 09/09/21 History Levothyroxine Sodium [Synthroid] 50 mcg PO DAILY 05/28/20 09/09/21 History Mirabegron [Myrbetriq] 50 mg PO DAILY 05/28/20 09/09/21 History Potassium Chloride [Potassium 10 meq PO BID 05/28/20 09/09/21 History Chloride ER] Quinapril HCl [Accupril] 40 mg PO BID 05/28/20 09/09/21 History SILVER sulfADIAZINE Cream 1 applic TOPICAL DAILY 05/28/20 09/09/21 History [Silvadene 1% Cream] Tamsulosin [Flomax] 0.4 mg PO HS 05/28/20 09/09/21 History rOPINIRole HCL [Requip] 4 mg PO TID 05/28/20 09/09/21 History Carbidopa-Levodopa 25-250 mg 1 tab PO BID PRN 09/09/21 09/09/21 History [Sinemet 25-250] Medihoney 80% Gel 1 applic TOPICAL DAILY 09/09/21 09/09/21 History amantadine HCL 200 mg PO BID 09/09/21 09/09/21 History Allergies Allergy/AdvReac Type Severity Reaction Status Date / Time No Known Allergies Allergy Verified 09/09/21 15:00 Physical Exam Vitals: Vital Signs Temp Pulse Pulse Resp BP BP Pulse Ox 09/10/21 08:00 97.8 F 71 18 174/78 94 L 09/10/21 04:00 98 F 70 18 137/69 94 L 09/09/21 23:40 84 18 171/88 97 09/09/21 20:10 98 F 84 18 169/73 93 L 09/09/21 19:00 84 18 155/101 96 09/09/21 16:05 86 18 159/105 96 09/09/21 14:55 85 18 173/79 96 09/09/21 11:46 75 18 140/86 96 09/09/21 11:16 98 F 87 18 138/69 94 L Intake and Output 09/09/21 09/10/21 09/10/21 22:59 06:59 14:59 Intake Total 1080 120 Balance 1080 120 Intake: Oral 1080 120 Other: Voiding Method Diaper Diaper Weight 113.398 kg Results 09/09/21 11:52 09/09/21 11:52 Cardiac Enzymes 09/09/21 09/09/21 09/09/21 Range/Units 11:52 11:52 15:11 AST 26 (17-59) U/L Troponin I 0.014 0.019 (0.000-0.034) ng/mL 09/09/21 Range/Units 18:01 AST (17-59) U/L Troponin I 0.020 (0.000-0.034) ng/mL Coagulation 09/09/21 Range/Units 11:52 PT 10.4 (9.0-12.0) sec APTT 22.1 (22.0-30.0) sec CBC 09/09/21 Range/Units 11:52 WBC 7.6 (3.8-10.6) k/uL RBC 5.30 (4.30-5.90) m/uL Hgb 15.6 (13.0-17.5) gm/dL Hct 48.9 (39.0-53.0) % Plt Count 239 (150-450) k/uL Comprehensive Metabolic Panel 09/09/21 Range/Units 11:52 Sodium 140 (137-145) mmol/L Potassium 4.0 (3.5-5.1) mmol/L Chloride 105 (98-107) mmol/L Carbon Dioxide 29 (22-30) mmol/L BUN 23 H (9-20) mg/dL Creatinine 0.70 (0.66-1.25) mg/dL Glucose 109 H (74-99) mg/dL Calcium 9.1 (8.4-10.2) mg/dL AST 26 (17-59) U/L ALT 6 (4-49) U/L Alkaline Phosphatase 106 (38-126) U/L Total Protein 6.9 (6.3-8.2) g/dL Albumin 3.9 (3.5-5.0) g/dL Current Medications Generic Name Dose Route Start Last Admin Trade Name Freq PRN Reason Stop Dose Admin Hydrocodone Bitart/Acetaminophen 1 each 09/10/21 05:20 Hydrocodone/Apap 5-325mg 1 Each Tab PO Q12HR PRN Pain Amantadine HCl 200 mg 09/09/21 21:00 09/10/21 08:03 Amantadine Hcl 100 Mg Cap PO 200 mg BID JAZLYN Administration Atorvastatin Calcium 20 mg 09/09/21 21:00 09/09/21 21:15 Atorvastatin 20 Mg Tab PO 20 mg HS JAZLYN Administration Carbidopa/Levodopa 1 each 09/09/21 15:39 Carbidopa-Levodopa 25-250 Mg 1 Each Tab PO BID PRN SHAKING Carbidopa/Levodopa 1 each 09/09/21 16:00 09/10/21 08:02 Carbidopa-Levodopa 25-250 Mg 1 Each Tab PO 1 each Q8HR JAZLYN Administration Docusate Sodium 100 mg 09/09/21 21:00 09/10/21 08:02 Docusate 100 Mg Cap PO 100 mg BID JAZLYN Administration Enoxaparin Sodium 40 mg 09/10/21 09:00 09/10/21 08:03 Enoxaparin 40 Mg/0.4 Ml Syringe SQ 40 mg DAILY JAZLYN Administration Cefazolin Sodium 2 gm/ Sodium 50 mls @ 100 mls/hr 09/10/21 00:00 09/10/21 08:06 Chloride IVPB 100 mls/hr Q8HR JAZLYN Administration Protocol Sodium Chloride 1,000 mls @ 75 mls/hr 09/09/21 14:00 09/10/21 08:01 Saline 0.9% IV Not Given .[id number] JAZLYN Levothyroxine Sodium 50 mcg 09/10/21 06:30 09/10/21 06:15 Levothyroxine 50 Mcg Tab PO 50 mcg 0630 JAZLYN Administration Lisinopril 40 mg 09/09/21 21:00 09/10/21 08:02 Lisinopril 20 Mg Tab PO 40 mg BID JAZLYN Administration Naloxone HCl 0.2 mg 09/09/21 13:54 Naloxone 0.4 Mg/Ml 1 Ml Vial IV Q2M PRN Opioid Reversal Non-Formulary Medication 50 mg 09/10/21 09:00 09/10/21 08:03 Mirabegron [Myrbetriq] PO Not Given DAILY JAZLYN Pantoprazole Sodium 40 mg 09/10/21 07:30 09/10/21 06:15 Pantoprazole 40 Mg Tablet PO 40 mg [id number] JAZLYN Administration Ropinirole HCl 4 mg 09/09/21 16:00 09/10/21 08:02 Ropinirole Hcl 4 Mg Tablet PO 4 mg TID JAZLYN Administration Silver Sulfadiazine 1 applic 09/09/21 16:00 09/10/21 08:03 Silver Sulfadiazine Cream 400 Gm 1 Applic Applic TOPICAL Not Given DAILY JAZLYN Tamsulosin HCl 0.4 mg 09/09/21 21:00 09/09/21 21:15 Tamsulosin 0.4 Mg Cap.Er.24h PO 0.4 mg HS JAZLYN Administration Intake and Output 09/09/21 09/10/21 09/10/21 22:59 06:59 14:59 Intake Total 1080 120 Balance 1080 120 Intake: Oral 1080 120 Other: Voiding Method Diaper Diaper Weight 113.398 kg 09/09/21 11:52 09/09/21 11:52
[2021-09-10 09:05] LABS: Basophils % (A) 0 %; Eosinophils # (A) 0.2 k/uL (0-0.7); Eosinophils % (A) 4 %; HCT 48.6 % (39.0-53.0); HGB 15.2 gm/dL (13.0-17.5); Lymphocytes # (A) 1.8 k/uL (1.0-4.8); Lymphocytes % (A) 27 %; MCH 29.1 pg (25.0-35.0); MCHC 31.2 g/dL (31.0-37.0); MCV 93.4 fL (80.0-100.0); Mean Platelet Volume 7.5; Monocytes # (A) 0.3 k/uL (0-1.0); Monocytes % (A) 5 %; Neutrophils # (A) 4.1 k/uL (1.3-7.7); Neutrophils % (A) 62 %; Platelet Count 260 k/uL (150-450); RBC 5.21 m/uL (4.30-5.90); RDW 13.4 % (11.5-15.5); WBC 6.6 k/uL (3.8-10.6)
[2021-09-10 09:16] LABS: ALT 9 U/L (4-49); AST 23 U/L (17-59); African American GFR (CKD) >90 (>60 ml/min/1.73 sqM); Albumin 3.5 g/dL (3.5-5.0); Alkaline Phosphatase 98 U/L (38-126); Anion Gap 7 mmol/L; Blood Urea Nitrogen 19 mg/dL (9-20); Calcium 8.5 mg/dL (8.4-10.2); Carbon Dioxide 28 mmol/L (22-30); Chloride 106 mmol/L (98-107); Glucose 136 mg/dL (74-99); Non-African American GFR(CKD) >90 (>60 ml/min/1.73 sqM); Potassium 3.9 mmol/L (3.5-5.1); Sodium 141 mmol/L (137-145); Total Bilirubin 0.5 mg/dL (0.2-1.3); Total Protein 6.3 g/dL (6.3-8.2)
--- NOTE | 2021-09-10 09:49 | US ---
EXAMINATION TYPE: US carotid duplex BILAT DATE OF EXAM: 09/10/2021 COMPARISON: NONE CLINICAL HISTORY: presyncope. presyncope EXAM MEASUREMENTS: RIGHT: Peak Systolic Velocity (PSV) cm/sec ----- Right CCA: 78.1 ----- Right ICA: 81.2 ----- Right ECA: 197.6 ICA/CCA ratio: 1.0 RIGHT: End Diastole cm/sec ----- Right CCA: 11.6 ----- Right ICA: 13.1 ----- Right ECA: 0.0 LEFT: Peak Systolic Velocity (PSV) cm/sec ----- Left CCA: 69.8 ----- Left ICA: 90.5 ----- Left ECA: 129.1 ICA/CCA ratio: 1.3 LEFT: End Diastole cm/sec ----- Left CCA: 10.2 ----- Left ICA: 18.0 ----- Left ECA: 7.9 VERTEBRALS (direction of flow): Right Vertebral: Antegrade Left Vertebral: Antegrade Rhythm: Normal Intimal thickening and atheromatous plaquing is present bilaterally. IMPRESSION: 1. Bilateral carotid vessel atheromatous plaquing without significant flow-limiting stenosis internal carotid arteries. 2. Some flow-limiting stenosis may be within the external carotid arteries. Criteria for Assigning % of Stenosis / Diameter reduction (Estimation based on the indirect measurements of the internal carotid artery velocities (ICA PSV). 1. Normal (no stenosis)=ICA PSV < 125 cm/s: ratio < 2.0: ICA EDV<40 cm/s. 2. Less than 50% stenosis=ICA PSV < 125 cm/s: ratio < 2.0: ICA EDV<40 cm/s. 3. 50 to 69% stenosis=ICA PSV of 125 to 230 cm/s: ration 2.0 ? 4.0: ICA EDV 40-100 cm/s. 4. Greater than 70% stenosis to near occlusion= ICA PSV > 230 cm/s: ratio > 4.0: ICA EDV > 100 cm/s. 5. Near occlusion= ICA PSV velocities may be low or undetectable: variable ratio and ICA EDV. 6. Total occlusion=unable to detect flow.
[2021-09-10 11:11] LABS: Erythrocyte Sedimentation Rate 8 mm/hr (0-15)
[2021-09-10] MEDS: HYDROcodone/APAP 5-325MG 1 EACH TAB PO PRN (11:32)
--- NOTE | 2021-09-10 11:57 | CA ---
Transthoracic Echo Report Name: Oliver Hebert Age: 66 Gender: M : 1955 Exam Date: 09/10/2021 07:59 Exam Location: [facility] Ht (in): 71 Wt (lb): 250 Ordering Physician: Ava Herbert MD Attending/Referring Phys: Associate Professor Of Economics Kourtney Byrne RDCS Procedure CPT: Indications: presyncope Cardiac Hx: Technical Quality: Good Contrast 1: Total Dose (mL): Contrast 2: Total Dose (mL): MEASUREMENTS (Male / Female) Normal Values 2D ECHO LA Volume 58.2 cm??? 18 - 58 / 22 - 52 cm??? M-MODE Aortic Root Diameter MM 3.3 cm LA Systolic Diameter MM 3.4 cm LA Ao Ratio MM 1.0 MV E Point Septal Separation 0.7 cm AV Cusp Separation MM 2.2 cm DOPPLER AV Peak Velocity 131.8 cm/s AV Peak Gradient 7.0 mmHg MV Area PHT 3.5 cm??? MR Peak Velocity 94.7 cm/s MR Peak Gradient 3.6 mmHg Mitral E Point Velocity 57.6 cm/s Mitral A Point Velocity 90.4 cm/s Mitral E to A Ratio 0.6 MV Deceleration Time 216.5 ms MV E' Velocity 6.4 cm/s Mitral E to MV E' Ratio 9.1 TR Peak Velocity 83.0 cm/s TR Peak Gradient 2.8 mmHg Right Ventricular Systolic Press 7.7 mmHg FINDINGS Left Ventricle Left ventricular ejection fraction is estimated at 50-55 %. Normal Left ventricular size, wall thickness. Basal inferolateral is hypokinesis. Right Ventricle The right ventricle is normal in size and function. Right Atrium The right atrium is normal in size. Left Atrium The left atrium is normal in size. Mitral Valve Structurally normal mitral valve without significant stenosis or prolapse. There is mild mitral regurgitation. Aortic Valve Structurally normal aortic valve without significant sclerosis or stenosis. There is no aortic regurgitation. Tricuspid Valve Structurally normal tricuspid valve without significant stenosis. Pulmonary artery systolic pressure is normal. Trace tricuspid regurgitation. Pulmonic Valve Structurally normal pulmonic valve without significant stenosis. There is no pulmonic regurgitation. Pericardium Normal pericardium without effusion. Aorta Normal aortic root dimension. CONCLUSIONS Normal LV systolic function with an ejection fraction of 52-55% Basal inferior wall is hypokinetic suggestive of prior myocardial infarction mild mitral regurgitation Previewed by: Dr. Jaziel Meadows MD (Electronically Signed) Final Date: 10 Sep 2021 11:56
--- NOTE | 2021-09-10 13:22 | P.PN ---
Subjective Progress Note Date: 09/10/21 HISTORY OF PRESENT ILLNESS: this is a 66-year-old white male with a previous medical history significant for hypertension and hypertensive cardiovascular disease, hyperlipidemia, history of detrusor stability, Percocet disease, with the significant tremor, and significant gait dysfunction with recurrent cellulitis of the left lower extremity and prior history of osteomyelitis of the left knee and multiple hospitalization of the left lower extremity cellulitis mostly at [facility], history of degenerative disc disease of the cervical spine with posterior cervical discectomy with fusion and history of C1 and C2 fracture was under the care of neurosurgery no surgical intervention was in a hard cervical collar that was removed by the neurosurgeon, patient has not been seen by myself since February of last year after he was moved to a program called [facility] pain is in [place] and they would not allow him to come and see me as a primary care physician, since they have their own physician he has been under the care of Dr. Kourtney Landa, and patient was brought into the ER at [facility] today because of increased cellulitis of the left lower extremity despite current treatment plan, and patient became quite a bit diaphoretic and short of breath, his heart rate was in the range of 200 however there was no rhythm strips or any records available at the time of evaluation, patient was seen in the emergency department, he was started on IV antibiotic in the form of Ancef he was admitted to the hospital to a telemetry unit, we will be seen in consultation by cardiology as well as by infectious disease. 09/10: Patient is feeling better today, he continues to have antibiotic, he was seen in consultation by cardiology as well as by infectious disease, he was maintained on IV antibiotic cefazolin 2 g IV piggyback every 8 hours, continue Silvadene cream to the left lower extremity, continue with local wound care, continue Noam wrap, continue leg elevation, decrease IV fluid to 50 mL an hour. Patient was started yesterday and [place] for pain in the cervical spine as well as lumbar spine patient does have history of C2 fracture and spondylolithiasis of the cervical spine status post posterior cervical discectomy with fusion, echocardiogram was done still pending at the time of dictation, duplex of the carotid were done showed mild to moderate plaque formation without evidence of hemodynamically significant stenosis there is minimal flow limiting stenosis in the external carotid arteries. REVIEW OF SYSTEMS: Constitutional: No documented fever, no chills, no night sweats. No weight change. no weakness, fatigue or lethargy. No daytime sleepiness. HEENT: No headache. No blurred vision or double vision, no loss of vision. No loss of Hearing, no ringing in the ears, no dizziness. No nasal drainage or congestion. No epistaxis. No sore throat. Lungs: No shortness of breath, no cough, no sputum production. No wheezing. Reports dyspnea with activity. Cardiovascular: No chest pain, positive for lower extremity edema. No palpitations. No paroxysmal nocturnal dyspnea. No orthopnea. positive for lightheadedness or dizziness. No syncopal episodes. Abdominal: Reports abdominal pain. No nausea, vomiting. No diarrhea. No constipation. No bloody or tarry stools reports loss of appetite. Genitourinary: No dysuria, increased frequency, urgency. No urinary retention. Musculoskeletal: No myalgias. positive for muscle weakness, positive for gait dysfunction,positive for frequent falls.positive for back pain and neck pain. Integumentary: there is left knee wounds that is shallow with clean base , there is nail changes , there is redness with warmth to the left lower extremity Neurologic: No aphasia. No facial droop. No change in mentation. No head injury. No headache. No paralysis. No paresthesia. Psychiatric: positive for depression. No anxiety. No mood swings. Endocrine: No abnormal blood sugars. No weight change. PHYSICAL EXAMINATION: General: 66-year-old male laying down in bed in no distress. HEENT: Head is atraumatic, normocephalic, pupils were equal round reactive to light and recommendation, extraocular muscle movement were intact, sclera nonicteric, conjunctivae were pale, mucous membranes of the mouth are somewhat dry. Neck: Supple, no JVP, normal carotid upstroke bilaterally, no lymphadenopathy. Chest: Decreased breath sounds at the bases, few rhonchi, no expiratory wheezes, no chest wall tenderness, no intercostal retractions. Heart: First heart sound is normal, second heart sound is normal there is systolic exertion murmur 2/6 located in the left sternal border. Abdomen: Soft, nontender, nondistended, positive bowel sounds, no hepatosplenomegaly. Extremities: there is +2 edema, no calf tenderness, the left lower extremity with significant erythema extending from the ankle all the way up to the knee with a wound that is shallow at the left knee suggestive of cellulitis, dorsalis pedis +1 bilaterally. Neurologic examination: Patient is awake alert and oriented X3, cranial nerves II-12 appear grossly intact, muscle power were 4 out of 5 in upper extremities and 4 out of 5 in bilateral lower extremities, deep tendon reflexes were depressed bilaterally, significant tremors especially in the right upper extremity, significant stiffness in both lower extremities. ASSESSMENT AND PLAN: 1. left lower extremity cellulitis continue the patient on Silvadene cream 1% to be applied once every day with an Noam wrap start the patient on cefazolin 2 g IV piggyback every 8 hours, keep the leg elevated, check C-reactive protein, repeat CBC tomorrow morning, infectious disease consultation, follow-up with the patient. Continue to apply Medihoney to the left knee wound. 2. Reported episodes of palpitations with presyncope without documentation of arrhythmia. Place the patient on telemetry unit obtain cardiology consultation. Echocardiogram along with carotid ultrasound. Discontinue Lasix start the patient on IV fluid resuscitation the form of normal saline at 75 mL an hour to rule out any orthostatic hypotension. 3. Hypertension and hypertensive cardiovascular disease . continue quinapril 40 mg orally twice every day. 4. hyperlipidemia.continue atorvastatin 20 mg orally once a day. 5. Parkinson disease.continue patient on Sinemet 25/250 one tablet 5 times ev sangeeta day, continue amantadine 200 mg orally twice every day, continue Requip 4 mg orally 3 times every day. 6. Detrusor instability.continue Myrbetriq 50 mg orally once every day. 7. Enlarged prostate .continue Flomax 0.4 mg once every day. 8. Hypothyroidism.continue patient on levothyroxin 50 g orally once every day. 9. DVT prophylaxis. Lovenox 40 mg subcutaneously every 24 hours 10. GI prophylaxis. Protonix 40 mg orally once every day. 11. home in Am Objective - Vital Signs Vital signs: Vital Signs Temp 97.8 F 09/10/21 08:00 Pulse 71 09/10/21 08:00 Resp 18 09/10/21 08:00 BP 174/78 09/10/21 08:00 Pulse Ox 94 L 09/10/21 08:00 FiO2 Intake & Output 09/09/21 09/10/21 09/10/21 18:59 06:59 18:59 Intake Total 1080 120 Balance 1080 120 Weight 113.398 kg 113.398 kg Intake: Oral 1080 120 Other: Voiding Method Diaper - Labs CBC & Chem 7: 09/10/21 08:23 09/10/21 08:23 Labs: Abnormal Lab Results - Last 24 Hours (Table) 09/09/21 09/10/21 Range/Units 11:52 08:23 BUN 23 H (9-20) mg/dL Glucose 109 H 136 H (74-99) mg/dL Microbiology - Last 24 Hours (Table) 09/09/21 11:52 Gram Stain - Preliminary Knee - Left Wound Culture - Preliminary
[2021-09-10] MEDS: TAMSULOSIN 0.4 MG CAP.ER.24H PO SCH ×2 (20:12→20:13)
[2021-09-10] MEDS: CARBIDOPA-LEVODOPA 25-250 MG 1 EACH TAB PO PRN (20:13)
[2021-09-10] MEDS: ATORVASTATIN 20 MG TAB PO SCH (21:13)
[2021-09-10] MEDS ORDERED: VANCOMYCIN IV PER PHARMACY 1 EACH MISC MISCELLANE PRN (22:36)
--- NOTE | 2021-09-10 22:38 | P.PN ---
Subjective Progress Note Date: 09/10/21 Principal diagnosis: Left lower extremity cellulitis Patient is a 66-year-old male presenting to the hospital with multiple symptoms also noticed to have a nonhealing wound to the left lower leg and left lower extremity cellulitis. On today's evaluation that is 09/10/2021, the patient denies having any fever or chills, breathing comfortably no chest pain shortness of breath or cough overall. Discomfort to the left leg is controlled, denies nausea vomiting abdominal pain no diarrhea Objective - Vital Signs Vital signs: Vital Signs Temp 98.2 F 09/10/21 16:00 Pulse 71 09/10/21 16:00 Resp 18 09/10/21 16:00 BP 148/67 09/10/21 16:00 Pulse Ox 96 09/10/21 16:00 FiO2 Intake & Output 09/10/21 09/10/21 09/11/21 06:59 18:59 06:59 Intake Total 1080 120 Balance 1080 120 Weight 113.398 kg Intake: Oral 1080 120 Other: Voiding Method Diaper # Voids 1 # Bowel Movements 1 - Exam GENERAL DESCRIPTION: An elderly male lying in bed in no distress RESPIRATORY SYSTEM: Unlabored breathing , decreased breath sounds at bases HEART: S1 S2 regular rate and rhythm , ABDOMEN: Soft , no tenderness EXTREMITIES: Left leg is currently dressed no drainage of the dressing - Labs CBC & Chem 7: 09/10/21 08:23 09/10/21 08:23 Labs: Abnormal Lab Results - Last 24 Hours (Table) 09/10/21 Range/Units 08:23 Glucose 136 H (74-99) mg/dL Microbiology - Last 24 Hours (Table) 09/09/21 11:52 Blood Culture - Preliminary Blood No Growth after 24 hours 09/09/21 11:52 Blood Culture - Preliminary Blood No Growth after 24 hours 09/09/21 11:52 Gram Stain - Preliminary Knee - Left Wound Culture - Preliminary Assessment and Plan (1) Cellulitis Current Visit: Yes Status: Acute Code(s): L03.90 - CELLULITIS, UNSPECIFIED SNOMED Code(s): 915705394 Plan: 1patient presented hospital with increasing swelling redness of left lower extremity in the setting of chronic nonhealing wound to the left knee area likely from gram-positive skin maría elena with no evidence of any abscess clinically. 2 blood culture so far negative glucose culture with strep and presumptive MRSA. 3discontinued cefazolin and start the patient on vancomycin pharmacy to dose Time with Patient: Less than 30
[2021-09-10] MEDS ORDERED: VANCOMYCIN 1,750 MG in SODIUM CHLORIDE 0.9% 500 ML 500 ML IVPB ONE (23:30)
[2021-09-11] MEDS: PANTOPRAZOLE 40 MG TABLET PO SCH (05:51)
[2021-09-11] MEDS: LEVOTHYROXINE 50 MCG TAB PO SCH (05:51)
[2021-09-11] MEDS: rOPINIRole HCL 4 MG TABLET PO SCH ×3 (07:47→20:30)
[2021-09-11] MEDS: ENOXAPARIN 40 MG/0.4 ML SYRINGE SQ SCH (07:47)
[2021-09-11] MEDS: lisinopriL 20 MG TAB PO SCH ×2 (07:48→20:29)
[2021-09-11] MEDS: CARBIDOPA-LEVODOPA 25-250 MG 1 EACH TAB PO SCH ×3 (07:48→22:54)
[2021-09-11] MEDS: DOCUSATE 100 MG CAP PO SCH ×2 (07:48→20:29)
[2021-09-11] MEDS: HYDROcodone/APAP 5-325MG 1 EACH TAB PO PRN ×2 (07:48→20:30)
[2021-09-11] MEDS: NON FORMULARY DRUG (Mirabegron [Myrbetriq] 50 MG Tab.Er.24h) PO SCH (07:49)
[2021-09-11] MEDS: SILVER sulfADIAZINE Cream 400 GM 1 APPLIC APPLIC TOPICAL SCH (07:49)
[2021-09-11 09:00] LABS: Basophils # (A) 0.1 k/uL (0-0.2); Basophils % (A) 1 %; Eosinophils # (A) 0.2 k/uL (0-0.7); Eosinophils % (A) 3 %; HCT 48.7 % (39.0-53.0); HGB 15.8 gm/dL (13.0-17.5); Lymphocytes # (A) 1.8 k/uL (1.0-4.8); Lymphocytes % (A) 25 %; MCH 30.4 pg (25.0-35.0); MCHC 32.5 g/dL (31.0-37.0); MCV 93.5 fL (80.0-100.0); Mean Platelet Volume 7.4; Monocytes # (A) 0.3 k/uL (0-1.0); Monocytes % (A) 5 %; Neutrophils # (A) 4.4 k/uL (1.3-7.7); Neutrophils % (A) 64 %; Platelet Count 230 k/uL (150-450); RDW 12.8 % (11.5-15.5)
[2021-09-11 09:19] LABS: ALT 7 U/L (4-49); AST 23 U/L (17-59); African American GFR (CKD) >90 (>60 ml/min/1.73 sqM); Albumin 3.5 g/dL (3.5-5.0); Alkaline Phosphatase 107 U/L (38-126); Anion Gap 8 mmol/L; Blood Urea Nitrogen 13 mg/dL (9-20); Calcium 8.8 mg/dL (8.4-10.2); Carbon Dioxide 26 mmol/L (22-30); Chloride 107 mmol/L (98-107); Glucose 127 mg/dL (74-99); Non-African American GFR(CKD) >90 (>60 ml/min/1.73 sqM); Potassium 4.1 mmol/L (3.5-5.1); Sodium 141 mmol/L (137-145); Total Bilirubin 0.7 mg/dL (0.2-1.3); Total Protein 6.5 g/dL (6.3-8.2)
[2021-09-11] MEDS: VANCOMYCIN 1,750 MG in SODIUM CHLORIDE 0.9% 500 ML 500 ML IVPB SCH ×2 (11:43→22:55)
[2021-09-11] MEDS: CARBIDOPA-LEVODOPA 25-250 MG 1 EACH TAB PO PRN ×2 (11:43→20:30)
[2021-09-11] MEDS: SODIUM CHLORIDE 0.9% 1,000 ML IV SCH (11:44)
--- NOTE | 2021-09-11 14:43 | P.PN ---
Subjective Progress Note Date: 09/11/21 HISTORY OF PRESENT ILLNESS: this is a 66-year-old white male with a previous medical history significant for hypertension and hypertensive cardiovascular disease, hyperlipidemia, history of detrusor stability, Percocet disease, with the significant tremor, and significant gait dysfunction with recurrent cellulitis of the left lower extremity and prior history of osteomyelitis of the left knee and multiple hospitalization of the left lower extremity cellulitis mostly at [facility], history of degenerative disc disease of the cervical spine with posterior cervical discectomy with fusion and history of C1 and C2 fracture was under the care of neurosurgery no surgical intervention was in a hard cervical collar that was removed by the neurosurgeon, patient has not been seen by myself since February of last year after he was moved to a program called [facility] pain is in [place] and they would not allow him to come and see me as a primary care physician, since they have their own physician he has been under the care of Dr. Kourtney Landa, and patient was brought into the ER at [facility] today because of increased cellulitis of the left lower extremity despite current treatment plan, and patient became quite a bit diaphoretic and short of breath, his heart rate was in the range of 200 however there was no rhythm strips or any records available at the time of evaluation, patient was seen in the emergency department, he was started on IV antibiotic in the form of Ancef he was admitted to the hospital to a telemetry unit, we will be seen in consultation by cardiology as well as by infectious disease. 09/10: Patient is feeling better today, he continues to have antibiotic, he was seen in consultation by cardiology as well as by infectious disease, he was maintained on IV antibiotic cefazolin 2 g IV piggyback every 8 hours, continue Silvadene cream to the left lower extremity, continue with local wound care, continue Noam wrap, continue leg elevation, decrease IV fluid to 50 mL an hour. Patient was started yesterday and [place] for pain in the cervical spine as well as lumbar spine patient does have history of C2 fracture and spondylolithiasis of the cervical spine status post posterior cervical discectomy with fusion, echocardiogram was done still pending at the time of dictation, duplex of the carotid were done showed mild to moderate plaque formation without evidence of hemodynamically significant stenosis there is minimal flow limiting stenosis in the external carotid arteries. 09/11: Patient sitting up in a chair today he is feeling better and has no fever or chills last night, unfortunately his culture grew group D Streptococcus presumptive MRSA he was taken off cefazolin and was started on vancomycin with pharmacy to dose its peak and trough, patient has been tolerating treatment very well, he has no chest pain or shortness breath at this time he has no diarrhea, he has no sore throat, no dysphagia, he seems to be tolerating treatment very well, he wanted to be discharged home today however due to the nature of his bacteremia need to stay in the hospital for IV anabiotic ended and await the final result of the cultures try to switch him to oral antibiotic if possible Sunday or Sunday. REVIEW OF SYSTEMS: Constitutional: No documented fever, no chills, no night sweats. No weight change. no weakness, fatigue or lethargy. No daytime sleepiness. HEENT: No headache. No blurred vision or double vision, no loss of vision. No loss of Hearing, no ringing in the ears, no dizziness. No nasal drainage or congestion. No epistaxis. No sore throat. Lungs: No shortness of breath, no cough, no sputum production. No wheezing. Re ports dyspnea with activity. Cardiovascular: No chest pain, positive for lower extremity edema. No palpitations. No paroxysmal nocturnal dyspnea. No orthopnea. positive for lightheadedness or dizziness. No syncopal episodes. Abdominal: Reports abdominal pain. No nausea, vomiting. No diarrhea. No constipation. No bloody or tarry stools reports loss of appetite. Genitourinary: No dysuria, increased frequency, urgency. No urinary retention. Musculoskeletal: No myalgias. positive for muscle weakness, positive for gait dysfunction,positive for frequent falls.positive for back pain and neck pain. Integumentary: there is left knee wounds that is shallow with clean base , there is nail changes , there is redness with warmth to the left lower extremity Neurologic: No aphasia. No facial droop. No change in mentation. No head injury. No headache. No paralysis. No paresthesia. Psychiatric: positive for depression. No anxiety. No mood swings. Endocrine: No abnormal blood sugars. No weight change. PHYSICAL EXAMINATION: General: 66-year-old male laying down in bed in no distress. HEENT: Head is atraumatic, normocephalic, pupils were equal round reactive to light and recommendation, extraocular muscle movement were intact, sclera nonicteric, conjunctivae were pale, mucous membranes of the mouth are somewhat dry. Neck: Supple, no JVP, normal carotid upstroke bilaterally, no lymphadenopathy. Chest: Decreased breath sounds at the bases, few rhonchi, no expiratory wheezes, no chest wall tenderness, no intercostal retractions. Heart: First heart sound is normal, second heart sound is normal there is systolic exertion murmur 2/6 located in the left sternal border. Abdomen: Soft, nontender, nondistended, positive bowel sounds, no hepatosplenomegaly. Extremities: there is +2 edema, no calf tenderness, the left lower extremity with significant erythema extending from the ankle all the way up to the knee with a wound that is shallow at the left knee suggestive of cellulitis, dorsalis pedis +1 bilaterally. Neurologic examination: Patient is awake alert and oriented X3, cranial nerves II-12 appear grossly intact, muscle power were 4 out of 5 in upper extremities and 4 out of 5 in bilateral lower extremities, deep tendon reflexes were depressed bilaterally, significant tremors especially in the right upper extremity, significant stiffness in both lower extremities. ASSESSMENT AND PLAN: 1. left lower extremity cellulitis with group D Streptococcus presumptive MRSA. Patient was started on vancomycin discontinued cefazolin continue Silvadene cream to be applied to the left lower extremity once every day continue leg elevation, continue local care, please change the dressing once every day, await the final result of the culture for possible transition to oral antibiotic versus midline for outpatient IV antibiotic. 2. Reported episodes of palpitations with presyncope without documentation of arrhythmia. Place the patient on telemetry unit obtain cardiology consultation. Echocardiogram along with carotid ultrasound. Discontinue Lasix start the patient on IV fluid resuscitation the form of normal saline at 75 mL an hour to rule out any orthostatic hypotension. 3. Hypertension and hypertensive cardiovascular disease . continue quinapril 40 mg orally twice every day. 4. hyperlipidemia.continue atorvastatin 20 mg orally once a day. 5. Parkinson disease.continue patient on Sinemet 25/250 one tablet 5 times every day, continue amantadine 200 mg orally twice every day, continue Requip 4 mg orally 3 times every day. 6. Detrusor instability.continue Myrbetriq 50 mg orally once every day. 7. Enlarged prostate .continue Flomax 0.4 mg once every day. 8. Hypothyroidism.continue patient on levothyroxin 50 g orally once every day. 9. DVT prophylaxis. Lovenox 40 mg subcutaneously every 24 hours 10. GI prophylaxis. Protonix 40 mg orally once every day. 11. Await the final result of the cultures. 12. Patient may need to have a midline for outpatient IV antibiotic for 2 weeks. Objective - Vital Signs Vital signs: Vital Signs Temp 98 F 09/11/21 11:50 Pulse 69 09/11/21 11:50 Resp 18 09/11/21 11:50 BP 159/76 09/11/21 11:50 Pulse Ox 96 09/11/21 11:50 FiO2 Intake & Output 09/10/21 09/11/21 09/11/21 18:59 06:59 18:59 Intake Total 120 Output Total 850 Balance 120 -850 Intake: Oral 120 Output: Urine 850 Other: Voiding Method Diaper # Voids 1 # Bowel Movements 1 - Labs CBC & Chem 7: 09/11/21 08:12 09/11/21 08:12 Labs: Abnormal Lab Results - Last 24 Hours (Table) 09/11/21 Range/Units 08:12 Glucose 127 H (74-99) mg/dL Microbiology - Last 24 Hours (Table) 09/09/21 11:52 Blood Culture - Preliminary Blood No Growth after 48 hours 09/09/21 11:52 Blood Culture - Preliminary Blood No Growth after 48 hours 09/09/21 11:52 Gram Stain - Preliminary Knee - Left Wound Culture - Preliminary Strep agalactiae - (group b) Presumptive MRSA
[2021-09-11] MEDS: ATORVASTATIN 20 MG TAB PO SCH (20:29)
[2021-09-11] MEDS: TAMSULOSIN 0.4 MG CAP.ER.24H PO SCH (20:30)
[2021-09-12 03:29] VITALS: RESP 20
[2021-09-12] MEDS: LEVOTHYROXINE 50 MCG TAB PO SCH (06:25)
[2021-09-12] MEDS: PANTOPRAZOLE 40 MG TABLET PO SCH (06:25)
[2021-09-12] MEDS: CARBIDOPA-LEVODOPA 25-250 MG 1 EACH TAB PO SCH ×2 (06:31→16:57)
[2021-09-12 08:35] LABS: African American GFR (CKD) >90 (>60 ml/min/1.73 sqM); Non-African American GFR(CKD) >90 (>60 ml/min/1.73 sqM)
--- NOTE | 2021-09-12 09:51 | P.DS ---
Providers Date of admission: 09/09/21 13:54 Expected date of discharge: 09/12/21 Attending physician: Ava Herbert Consults: 09/09/21 13:56 Consult Physician Routine Consulting Provider: Kesha Bravo Consult Reason/Comments: cwllulitis Do you want consulting provider notified?: Yes Primary care physician: Ava Herbert Hospital Course: HISTORY OF PRESENT ILLNESS: this is a 66-year-old white male with a previous medical history significant for hypertension and hypertensive cardiovascular disease, hyperlipidemia, history of detrusor stability, Percocet disease, with the significant tremor, and significant gait dysfunction with recurrent cellulitis of the left lower extremity and prior history of osteomyelitis of the left knee and multiple hospitalization of the left lower extremity cellulitis mostly at [facility], history of degenerative disc disease of the cervical spine with posterior cervical discectomy with fusion and history of C1 and C2 fracture was under the care of neurosurgery no surgical intervention was in a hard cervical collar that was removed by the neurosurgeon, patient has not been seen by myself since February of last year after he was moved to a program called [facility] pain is in [place] and they would not allow him to come and see me as a primary care physician, since they have their own physician he has been under the care of Dr. Kourtney Landa, and patient was brought into the ER at [facility] today because of increased cellulitis of the left lower extremity despite current treatment plan, and patient became quite a bit diaphoretic and short of breath, his heart rate was in the range of 200 however there was no rhythm strips or any records available at the time of evaluation, patient was seen in the emergency department, he was started on IV antibiotic in the form of Ancef he was admitted to the hospital to a telemetry unit, we will be seen in consultation by cardiology as well as by infectious disease. 09/10: Patient is feeling better today, he continues to have antibiotic, he was seen in consultation by cardiology as well as by infectious disease, he was maintained on IV antibiotic cefazolin 2 g IV piggyback every 8 hours, continue Silvadene cream to the left lower extremity, continue with local wound care, continue Noam wrap, continue leg elevation, decrease IV fluid to 50 mL an hour. Patient was started yesterday and [place] for pain in the cervical spine as well as lumbar spine patient does have history of C2 fracture and spondylolithiasis of the cervical spine status post posterior cervical discectomy with fusion, echocardiogram was done still pending at the time of dictation, duplex of the carotid were done showed mild to moderate plaque formation without evidence of hemodynamically sig nificant stenosis there is minimal flow limiting stenosis in the external carotid arteries. 09/11: Patient sitting up in a chair today he is feeling better and has no fever or chills last night, unfortunately his culture grew group D Streptococcus presumptive MRSA he was taken off cefazolin and was started on vancomycin with pharmacy to dose its peak and trough, patient has been tolerating treatment very well, he has no chest pain or shortness breath at this time he has no diarrhea, he has no sore throat, no dysphagia, he seems to be tolerating treatment very well, he wanted to be discharged home today however due to the nature of his bacteremia need to stay in the hospital for IV anabiotic ended and await the final result of the cultures try to switch him to oral antibiotic if possible or Sunday. Discharge diagnoses: 1. left lower extremity cellulitis with group B Streptococcus MRSA. 2. Reported episodes of palpitations with presyncope without documentation of arrhythmia. 3. Hypertension and hypertensive cardiovascular disease . 4. hyperlipidemia. 5. Parkinson disease. 6. Detrusor instability. 7. Enlarged prostate . 8. Hypothyroidism. Patient Condition at Discharge: Stable Plan - Discharge Summary Discharge Rx Participant: No New Discharge Prescriptions: No Action Tamsulosin [Flomax] 0.4 mg PO HS rOPINIRole HCL [Requip] 4 mg PO TID SILVER sulfADIAZINE Cream [Silvadene 1% Cream] 1 applic TOPICAL DAILY Quinapril HCl [Accupril] 40 mg PO BID Potassium Chloride [Potassium Chloride ER] 10 meq PO BID Mirabegron [Myrbetriq] 50 mg PO DAILY Levothyroxine Sodium [Synthroid] 50 mcg PO DAILY Furosemide [Lasix] 40 mg PO BID Carbidopa-Levodopa 25-250 mg [Sinemet 25-250] 1 tab PO Q8H Atorvastatin [Lipitor] 20 mg PO HS amantadine HCL 200 mg PO BID Medihoney 80% Gel 1 applic TOPICAL DAILY Carbidopa-Levodopa 25-250 mg [Sinemet 25-250] 1 tab PO BID PRN PRN Reason: SHAKING Discharge Medication List Atorvastatin [Lipitor] 20 mg PO HS 05/28/20 [History] Carbidopa-Levodopa 25-250 mg [Sinemet 25-250] 1 tab PO Q8H 05/28/20 [History] Furosemide [Lasix] 40 mg PO BID 05/28/20 [History] Levothyroxine Sodium [Synthroid] 50 mcg PO DAILY 05/28/20 [History] Mirabegron [Myrbetriq] 50 mg PO DAILY 05/28/20 [History] Potassium Chloride [Potassium Chloride ER] 10 meq PO BID 05/28/20 [History] Quinapril HCl [Accupril] 40 mg PO BID 05/28/20 [History] SILVER sulfADIAZINE Cream [Silvadene 1% Cream] 1 applic TOPICAL DAILY 05/28/20 [History] Tamsulosin [Flomax] 0.4 mg PO HS 05/28/20 [History] rOPINIRole HCL [Requip] 4 mg PO TID 05/28/20 [History] Carbidopa-Levodopa 25-250 mg [Sinemet 25-250] 1 tab PO BID PRN 09/09/21 [History] Medihoney 80% Gel 1 applic TOPICAL DAILY 09/09/21 [History] amantadine HCL 200 mg PO BID 09/09/21 [History] Follow up Appointment(s)/Referral(s): Ava Herbert MD [Primary Care Provider] - 1-2 days
[2021-09-12] MEDS: NON FORMULARY DRUG (Mirabegron [Myrbetriq] 50 MG Tab.Er.24h) PO SCH (10:49)
[2021-09-12] MEDS: SILVER sulfADIAZINE Cream 400 GM 1 APPLIC APPLIC TOPICAL SCH (10:49)
[2021-09-12] MEDS: CARBIDOPA-LEVODOPA 25-250 MG 1 EACH TAB PO PRN (10:54)
[2021-09-12] MEDS: DOCUSATE 100 MG CAP PO SCH (10:55)
[2021-09-12] MEDS: lisinopriL 20 MG TAB PO SCH (10:55)
[2021-09-12] MEDS: ENOXAPARIN 40 MG/0.4 ML SYRINGE SQ SCH (10:55)
[2021-09-12] MEDS: HYDROcodone/APAP 5-325MG 1 EACH TAB PO PRN (10:56)
[2021-09-12] MEDS: rOPINIRole HCL 4 MG TABLET PO SCH (12:50)
[2021-09-12] MEDS: SODIUM CHLORIDE 0.9% 1,000 ML IV SCH (12:50)
[2021-09-12 14:39] VITALS: BP 146/72; PULSE 79; TEMP 98.3
[2021-09-12] MEDS ORDERED: DOXYCYCLINE 100 MG CAP PO SCH (21:00)
== END 2021-09-12 17:11 | disposition home health service (06) ==
LOC: EC 11:12 → 3SCARD 13:54
PROVIDERS: ADMIT Internal Medicine; ATTEND Internal Medicine
DX: L03.116 Cellulitis of left lower limb (principal); B95.1 Streptococcus, group B, as the cause of diseases classified elsewhere; I11.9 Hypertensive heart disease without heart failure; G20 Parkinson's disease; F02.80 Dementia in other diseases classified elsewhere, unspecified severity, without behavioral disturbance, psychotic disturbance, mood disturbance, and anxiety; R55 Syncope and collapse; E78.5 Hyperlipidemia, unspecified; E03.9 Hypothyroidism, unspecified; I25.10 Atherosclerotic heart disease of native coronary artery without angina pectoris; I25.83 Coronary atherosclerosis due to lipid rich plaque; R26.9 Unspecified abnormalities of gait and mobility; N40.0 Benign prostatic hyperplasia without lower urinary tract symptoms; F17.210 Nicotine dependence, cigarettes, uncomplicated; R00.0 Tachycardia, unspecified; Z79.890 Hormone replacement therapy; Z79.899 Other long term (current) drug therapy; Z98.1 Arthrodesis status; Z86.14 Personal history of Methicillin resistant Staphylococcus aureus infection; Z80.1 Family history of malignant neoplasm of trachea, bronchus and lung; Z82.5 Family history of asthma and other chronic lower respiratory diseases; Z80.42 Family history of malignant neoplasm of prostate; Z83.3 Family history of diabetes mellitus; M86.8X6 Other osteomyelitis, lower leg; M50.30 Other cervical disc degeneration, unspecified cervical region; M47.812 Spondylosis without myelopathy or radiculopathy, cervical region
CPT/HCPCS: 99285; 96365; 96366 ×3; 96367; 96372 ×3; 36415; 93005; 93306; 84439; 84481; 80053 ×3; 85652; 82565; 83605; 83735; 84443; 84484; 85025 ×3; 85610; 85730; 87040; 87070; 87205; 87077; 87186; 71046; 93880; G0378 ×4; J3370 ×2; J0690 ×2; J1650 ×3

== ENCOUNTER → 2021-09-22 | Outpatient (CLI) | payer OTHER ==
--- NOTE | 2021-09-22 14:26 | CT ---
EXAMINATION TYPE: CT elbow RT wo con DATE OF EXAM: 09/22/2021 COMPARISON: None HISTORY: right elbow fx CT DLP: 1610.4 mGycm Automated exposure control for dose reduction was used. FINDINGS: There is a transverse fracture through the supracondylar portion of the humerus with displacement. So ft tissue edema noted. Pathologic joint effusion in fat pad displacement noted both anteriorly and po steriorly. Olecranon spur incidentally noted. Report telephoned to referring clinician 2:22 PM 09/23/19. IMPRESSION: TRANSVERSE SUPRACONDYLAR FRACTURE IN DISTAL HUMERUS WITH DISPLACEMENT.
== END | disposition home or self-care (01) ==
LOC: RADCTMAIN 12:37
PROVIDERS: ATTEND Orthopaedic Surgery Hand Surgery
DX: S42.411A Displaced simple supracondylar fracture without intercondylar fracture of right humerus, initial encounter for closed fracture (principal)

== ENCOUNTER 2022-09-06 18:10 | Emergency (ER) | payer OTHER ==
--- NOTE | 2022-09-06 19:45 | ED ---
General Adult HPI - General Chief complaint: Fall Stated complaint: Fall, neck pain Time Seen by Provider: 09/06/22 18:30 Source: patient, EMS, RN notes reviewed, old records reviewed Mode of arrival: EMS Limitations: physical limitation - History of Present Illness Initial comments: This is a 67-year-old male who presents emergency Department complaining of having Parkinson's disease and states he still in his feet and fell hit the right side of his head per patient now, his headache some neck pain. Patient denies any numbness or weakness. Patient denies any chest pain. Patient states he did bump his left shoulder but he has full range of motion he doesn't think anything is broken it is just a little sore. Patient denies any back pain patie nt has any abdominal pain patient denies any lower extremity pain or hip pain. - Related Data Home Medications Medication Instructions Recorded Confirmed Atorvastatin [Lipitor] 20 mg PO HS 05/28/20 06/23/22 Carbidopa-Levodopa 25-250 mg 1 tab PO 5XD 05/28/20 06/23/22 [Sinemet 25-250 mg] Furosemide [Lasix] 40 mg PO BID 05/28/20 06/23/22 Levothyroxine Sodium [Synthroid] 50 mcg PO DAILY 05/28/20 06/23/22 Mirabegron [Myrbetriq] 50 mg PO DAILY 05/28/20 06/23/22 Potassium Chloride [Potassium 10 meq PO BID 05/28/20 06/23/22 Chloride ER] Tamsulosin [Flomax] 0.4 mg PO HS 05/28/20 06/23/22 rOPINIRole HCL [Requip] 4 mg PO TID 05/28/20 06/23/22 amantadine HCL [Amantadine] 100 mg PO BID 09/09/21 06/23/22 Acetaminophen Tab [Tylenol] 650 mg PO TID PRN 06/23/22 06/23/22 Calcium Carbonate 500 mg PO BID 06/23/22 06/23/22 Carbidopa/Levodopa [Carbidopa-Levo 1 tab PO BID PRN 06/23/22 06/23/22 25-250 mg Odt] Cholecalciferol [Vitamin D3 (125 125 mcg PO DAILY 06/23/22 06/23/22 Mcg = 5000 Iu)] HYDROcodone/APAP 10-325MG [[place] 1 tab PO Q4HR PRN 06/23/22 06/23/22 10-325] Ketoconazole 2% Cream [Nizoral 2%] 1 applic TOPICAL DAILY PRN 06/23/22 06/23/22 Sennosides [Senokot] 8.6 mg PO BID 06/23/22 06/23/22 lisinopriL [Zestril] 40 mg PO DAILY 06/23/22 06/23/22 Allergies Allergy/AdvReac Type Severity Reaction Status Date / Time No Known Allergies Allergy Verified 06/23/22 12:05 Review of Systems ROS Statement: Those systems with pertinent positive or pertinent negative responses have been documented in the HPI. ROS Other: All systems not noted in ROS Statement are negative. Past Medical History Additional Past Medical History / Comment(s): parkinson's, chronic lower back History of Any Multi-Drug Resistant Organisms: MRSA Date of last positivie culture/infection: 08/17/20 MDRO Source:: MRSA KNEE Past Surgical History: Orthopedic Surgery Additional Past Surgical History / Comment(s): L leg Past Psychological History: No Psychological Hx Reported Smoking Status: Current some day smoker Past Alcohol Use History: Occasional Past Drug Use History: Marijuana - Past Family History Father History Unknown: Yes Family Medical History: Cancer Additional Family Medical History / Comment(s): prostate CA General Exam - General Exam Comments Initial Comments: GENERAL: Patient is well-developed and well-nourished. Patient is nontoxic and well- hydrated and is in mild distress. ENT: Neck is soft and supple. No significant lymphadenopathy is noted. Oropharynx is clear. Moist mucous membranes. Patient is in a c-collar and he has some palpable tenderness on the left side and right side of his neck but no central process spinous tenderness EYES: The sclera were anicteric and conjunctiva were pink and moist. Extraocular movements were intact and pupils were equal round and reactive to light. Eyelids were unremarkable. PULMONARY: Unlabored respirations. Good breath sounds bilaterally. No audible rales rhonchi or wheezing was noted. CARDIOVASCULAR: There is a regular rate and rhythm without any murmurs gallops or rubs. ABDOMEN: Soft and nontender with normal bowel sounds. SKIN: Skin is clear with no lesions or rashes and otherwise unremarkable. NEUROLOGIC: Patient is alert and oriented x3. Cranial nerves II through XII are grossly intact. Motor and sensory are also intact. Normal speech, volume and content. Symmetrical smile. MUSCULOSKELETAL: Normal extremities with adequate strength and full range of motion. LYMPHATICS: No significant lymphadenopathy is noted PSYCHIATRIC: Normal psychiatric evaluation. Limitations: physical limitation Course Vital Signs 09/06/22 18:20 Temperature 97.5 F L Pulse Rate 72 Respiratory 18 Rate Blood Pressure 151/75 O2 Sat by Pulse 98 Oximetry Medical Decision Making - Medical Decision Making Was pt. sent in by a medical professional or institution (, PA, CRANIOLOGIST, urgent care, hospital, or assisted...) When possible be specific @ -No Did you speak to anyone other than the patient for history (EMS, parent, family, police, friend...)? What history was obtained from this source @ -Friend gave quite a bit of the history patient is very slow to respond secondary to his Parkinson's Did you review nursing and triage notes (agree or disagree)? Why? @ -I reviewed and agree with nursing and triage notes Were old charts reviewed (outside hosp., previous admission, EMS record, old EKG, old radiological studies, urgent care reports/EKG's, assisted records)? Report findings @ -No old charts were reviewed Differential Diagnosis (chest pain, altered mental status, abdominal pain women, abdominal pain men, vaginal bleeding, weakness, fever, dyspnea, syncope, headache, dizziness, GI bleed, back pain, seizure, CVA, palpatations, mental health, musculoskeletal)? @ -Differential Musculoskeletal Muscular strain, contusion, ligament sprain, fracture, arthritis, septic arthritis, bursitis, cellulitis, muscle spasm, nerve compression, DVT, arterial occlusion, herpes zoster, electrolyte abnormality, tumor.... This is not meant to be in all inclusive list EKG interpreted by me (3pts min.). @ -As above X-rays interpreted by me (1pt min.). @ -None done CT interpreted by me (1pt min.). @ -Computed tomography scan of the brain showed no acute abnormality. CT of the C-spine showed no acute abnormality. U/S interpreted by me (1pt. min.). @ -None done What testing was considered but not performed or refused? (CT, X-rays, U/S, labs)? Why? @ -None What meds were considered but not given or refused? Why? @ -None Did you discuss the management of the patient with other professionals (professionals i.e. , PA, CRANIOLOGIST, lab, RT, psych nurse, social group worker, movie shot cameraman, teacher, radiation officer, correctional casework specialist)? Give summary @ -No Was smoking cessation discussed for >3mins.? @ -No Was critical care preformed (if so, how long)? @ -No Were there social determinants of health that impacted care today? How? ( Homelessness, low income, unemployed, alcoholism, drug addiction, transportation, low edu. Level, literacy, decrease access to med. care, group home, rehab)? @ -No Was there de-escalation of care discussed even if they declined (Discuss DNR or withdrawal of care, Hospice)? DNR status @ -No What co-morbidities impacted this encounter? (DM, HTN, Smoking, COPD, CAD, Cancer, CVA, ARF, Chemo, Hep., AIDS, mental health diagnosis, sleep apnea, morbid obesity)? @ -None Was patient admitted / discharged? Hospital course, mention meds given and route, prescriptions, significant lab abnormalities, going to OR and other pertinent info. @ -C-collar patient was feeling considerably better he got a shot of Toradol. Patient got up ambulated around stated that he felt like he was at his baseline he had no further complaints he felt comfortable going home. Patient had no numbness or weakness at this time. Patient's again was reexamined he had no spinous process tenderness she did have a little bit of left-sided trapezius muscle tenderness. Undiagnosed new problem with uncertain prognosis? @ -No Drug Therapy requiring intensive monitoring for toxicity (Heparin, Nitro, Insulin, Cardizem)? @ -No Were any procedures done? @ -No Diagnosis/symptom? @ -Cervical strain Acute, or Chronic, or Acute on Chronic? @ -Acute Uncomplicated (without systemic symptoms) or Complicated (systemic symptoms)? @ -Uncomplicated Side effects of treatment? @ -No Exacerbation, Progression, or Severe Exacerbation? @ -No Poses a threat to life or bodily function? How? (Chest pain, [place], [place], pneumonia, PE, COPD, DKA, ARF, appy, cholecystitis, CVA, Diverticulitis, Homicidal, Suicidal, threat to staff... and all critical care pts) @ -No Diagnosis/symptom? @ -Head injury Acute, or Chronic, or Acute on Chronic? @ -Acute Uncomplicated (without systemic symptoms) or Complicated (systemic symptoms)? @ -Complicated Side effects of treatment? @ -none Exacerbation, Progression, or Severe Exacerbation] @ -no Poses a threat to life or bodily function? @ -no Disposition Clinical Impression: Fall, Head injury, Cervical strain Disposition: HOME SELF-CARE Instructions (If sedation given, give patient instructions): Fall Prevention (ED), Head Injury (ED), Cervical Strain (ED) Is patient prescribed a controlled substance at d/c from ED?: No Referrals: Ayo Schwarz MD [Primary Care Provider] - 1-2 days Time of Disposition: 20:57
--- NOTE | 2022-09-06 20:43 | CT ---
EXAMINATION TYPE: CT brain serge wo con DATE OF EXAM: 09/06/2022 COMPARISON: 06/23/2022 HISTORY: fall- c collar CT DLP: 1727.5 mGycm, Automated exposure control for dose reduction was used. CONTRAST: Patient injected with 0 mL of Isovue 300. CT of the brain is performed utilizing 3 mm thick sections through the posterior fossa and 3 mm thick sections through the remaining calvarium. Study is performed within 24 hours of arrival to the hospital. No abnormal hyperdensity is present to suggest an acute intracranial hemorrhage. No mass lesion is evident. No acute infarcts are evident. There may be some minimal periventricular white matter hypodensity, l ikely on the basis of chronic white matters changes. Ventricles and sulci are appropriate for the patient age. Mucosal thickening opacifies the right maxillary sinus. Scattered mucosal thickening is within ethmoi d air cells. Remaining paranasal sinuses and mastoid air cells are clear. IMPRESSIONS: 1. Minimal periventricular white matter ischemic type changes. No acute intracranial process radiogra phically apparent. Follow-up MRI can be performed as clinically indicated CT cervical spine. COMPARISON: None CT of the cervical spine is performed in the axial plane at 2 mm thick sections. Reconstructed image s in the coronal, and sagittal plane are reviewed on the computer. No acute fractures are evident. Vertebral body alignment is normal. Postsurgical changes are present. Large posterior calcifications are present extending from C2 through C7. Anterior vertebral bodies calcification is present. There i s narrowing of disc heights. Some disc space narrowing is present at C6-7. Disc space narrowing is present C7-T1. Vertebral body h eights are preserved. Spinal canal stenosis is present posterior to the C2 level. AP dimension 0.8 cm. Laminectomies decom press the remainder of the cervical spine. Facet hypertrophy and some posterior calcification is cont ributing to spinal canal stenosis at the T1 level. IMPRESSIONS: 1. Advanced posterior longitudinal ligament calcification with acquired fusion through the cervical s pine. Postsurgical changes decompressed cervical spine. Stenosis however is present posterior to the C2-T1 levels. 2. No acute fractures are identified.
[2022-09-06] MEDS ORDERED: KETOROLAC 15 MG/ML 1 ML VIAL IM STA (20:45)
[2022-09-06 21:22] VITALS: BP 150/77; PULSE 82; RESP 16; TEMP 98.3
== END 2022-09-06 21:22 | disposition home or self-care (01) ==
LOC: EC 18:10
DX: S16.1XXA Strain of muscle, fascia and tendon at neck level, initial encounter (principal); S09.90XA Unspecified injury of head, initial encounter; G20 Parkinson's disease; F17.200 Nicotine dependence, unspecified, uncomplicated; F12.90 Cannabis use, unspecified, uncomplicated; Z79.899 Other long term (current) drug therapy; W19.XXXA Unspecified fall, initial encounter
CPT/HCPCS: 72125; 70450; 99284; 96372; J1885

== ENCOUNTER 2022-10-16 12:53 | Emergency (ER) | payer MEDICARE, OTHER ==
[2022-10-16 13:53] VITALS: TEMP 98.3
[2022-10-16] MEDS ORDERED: SODIUM CHLORIDE 0.9% 1,000 ML IV STA (13:55)
--- NOTE | 2022-10-16 13:59 | ED ---
General Adult HPI - General Chief complaint: Weakness Stated complaint: weakness Time Seen by Provider: 10/16/22 12:58 Source: patient, EMS Mode of arrival: EMS Limitations: physical limitation - History of Present Illness Initial comments: Dictation was produced using [employer] dictation software. please excuse any grammatical, word or spelling errors. Chief Complaint: 67-year-old male multiple comorbidities presents emergency department for poor social situation History of Present Illness: Is 67-year-old male he has history of debility. He lives at home with 2 roommates. He has home health care. According to EMS supervisor kennel for patient's home health care nurse underwent some sort of surgery that made her unable to provide support the patient at his home. Apparently patient was dehydrated. Patient denies any complaints at this time. He feels at baseline. States that he does not have support at home. The ROS documented in this emergency department record has been reviewed and confirmed by me. Those systems with pertinent positive or negative responses have been documented in the HPI. All other systems are other negative and/or noncontributory. - Related Data Home Medications Medication Instructions Recorded Confirmed Atorvastatin [Lipitor] 20 mg PO HS 05/28/20 10/16/22 Carbidopa-Levodopa 25-250 mg 1 tab PO 5XD 05/28/20 10/16/22 [Sinemet 25-250 mg] Furosemide [Lasix] 40 mg PO BID 05/28/20 10/16/22 Levothyroxine Sodium [Synthroid] 50 mcg PO DAILY 05/28/20 10/16/22 Mirabegron [Myrbetriq] 50 mg PO DAILY 05/28/20 10/16/22 Potassium Chloride [Potassium 10 meq PO BID 05/28/20 10/16/22 Chloride ER] Tamsulosin [Flomax] 0.4 mg PO HS 05/28/20 10/16/22 rOPINIRole HCL [Requip] 4 mg PO TID 05/28/20 10/16/22 amantadine HCL [Amantadine] 100 mg PO BID 09/09/21 10/16/22 Acetaminophen Tab [Tylenol] 650 mg PO TID PRN 06/23/22 10/16/22 Calcium Carbonate 500 mg PO BID 06/23/22 10/16/22 Carbidopa/Levodopa [Carbidopa-Levo 1 tab PO BID PRN 06/23/22 10/16/22 25-250 mg Odt] Cholecalciferol [Vitamin D3 (125 125 mcg PO DAILY 06/23/22 10/16/22 Mcg = 5000 Iu)] HYDROcodone/APAP 10-325MG [[place] 1 tab PO Q4HR PRN 06/23/22 10/16/22 10-325] Ketoconazole 2% Cream [Nizoral 2%] 1 applic TOPICAL DAILY PRN 06/23/22 10/16/22 Sennosides [Senokot] 8.6 mg PO BID 06/23/22 10/16/22 lisinopriL [Zestril] 40 mg PO DAILY 06/23/22 10/16/22 Gabapentin [Neurontin] 400 mg PO TID 10/16/22 10/16/22 Ibuprofen [Motrin Ib] 400 mg PO TID-W/MEALS PRN 10/16/22 10/16/22 Menthol [Biofreeze] 1 applic TOPICAL TID PRN 10/16/22 10/16/22 Nystatin 100,000 Unit/gm Powd 1 applic TOPICAL TID PRN 10/16/22 10/16/22 [Mycostatin Powder] Sulfamethox-Tmp 800-160Mg [Bactrim 1 tab PO Q12HR 10/16/22 10/16/22 DS 800-160 mg] Allergies Allergy/AdvReac Type Severity Reaction Status Date / Time No Known Allergies Allergy Verified 10/16/22 15:07 Review of Systems ROS Statement: Those systems with pertinent positive or pertinent negative responses have been documented in the HPI. ROS Other: All systems not noted in ROS Statement are negative. Past Medical History Additional Past Medical History / Comment(s): parkinson's, chronic lower back History of Any Multi-Drug Resistant Organisms: MRSA Date of last positivie culture/infection: 08/17/20 MDRO Source:: MRSA KNEE Past Surgical History: Orthopedic Surgery Additional Past Surgical History / Comment(s): L leg Past Psychological History: No Psychological Hx Reported Smoking Status: Current some day smoker Past Alcohol Use History: Occasional Past Drug Use History: Marijuana - Past Family History Father History Unknown: Yes Family Medical History: Cancer Additional Family Medical History / Comment(s): prostate CA General Exam - General Exam Comments Initial Comments: PHYSICAL EXAM: General Impression: Alert and oriented x3, not in acute distress HEENT: Normocephalic atraumatic, extra-ocular movements intact, pupils equal and reactive to light bilaterally, mucous membranes moist. Cardiovascular: Heart regular rate and rhythm Chest: Able to complete full sentences, no retractions, no tachypnea Abdomen: abdomen soft, non-tender, non-distended, no organomegaly Musculoskeletal: Pulses present and equal in all extremities, no peripheral edema Motor: no focal deficits noted Neurological: CN II-XII grossly intact, no focal motor or sensory deficits noted Skin: Chronic wounds to the bilateral lower extremities were clean dry and intact dressings Psych: Normal affect and mood Limitations: physical limitation Course Vital Signs 10/16/22 10/16/22 10/16/22 13:02 13:46 14:10 Temperature 98.4 F 98.3 F Pulse Rate 72 75 77 Respiratory 18 18 22 Rate Blood Pressure 136/73 144/86 146/88 O2 Sat by Pulse 96 96 95 Oximetry 10/16/22 15:00 Temperature Pulse Rate 78 Respiratory 21 Rate Blood Pressure 146/87 O2 Sat by Pulse Oximetry Medical Decision Making - Medical Decision Making Was pt. sent in by a medical professional or institution (, PA, COMMUNITY SERVICE MANAGER, urgent care, hospital, or half-way...) When possible be specific @ -No Did you speak to anyone other than the patient for history (EMS, parent, family, police, friend...)? What history was obtained from this source @ -EMS reports that patient's home health care visit her was not available for due to recent surgery Did you review nursing and triage notes (agree or disagree)? Why? @ -I reviewed and agree with nursing and triage notes Were old charts reviewed (outside hosp., previous admission, EMS record, old EKG, old radiological studies, urgent care reports/EKG's, half-way records)? Report findings @ -No old charts were reviewed Differential Diagnosis (chest pain, altered mental status, abdominal pain women, abdominal pain men, vaginal bleeding, musculoskeletal, weakness, fever, dyspnea, syncope, headache, dizziness, GI bleed, back pain, seizure, CVA, palpatations, mental health)? @ -Differential Weakness: Hypoglycemia, shock, sepsis, hyponatremia, anemia, infection, [place], ETOH, adverse medicine reaction, overdose, stroke, this is not meant to be an all-inclusive list. EKG interpreted by me (3pts min.). @ -My EKG interpretation: Ventricular rate 70, sinus rhythm,. 182, QRS 123, QTC 421. No NH prolongation, no QTC prolongation, no ST or T-wave changes noted. Overall, this EKG is unremarkable X-rays interpreted by me (1pt min.). @ -None done CT interpreted by me (1pt min.). @ -None done U/S interpreted by me (1pt. min.). @ -None done What testing was considered but not performed or refused? (CT, X-rays, U/S, labs)? Why? @ -None What meds were considered but not given or refused? Why? @ -None Did you discuss the management of the patient with other professionals (professionals i.e. , PA, COMMUNITY SERVICE MANAGER, lab, RT, psych nurse, social security assessor, manager completions, teacher, cavalry officer, case management associate)? Give summary @ -Case discussed with case management associate who states that patient does have appropriate home support however he is not compliant with it and is refusing to go to arrange [facility] is events Was smoking cessation discussed for >3mins.? @ -No Was critical care preformed (if so, how long)? @ -No Were there social determinants of health that impacted care today? How? (Homelessness, low income, unemployed, alcoholism, drug addiction, transportation, low edu. Level, literacy, decrease access to med. care, fpc, rehab)? @ -No Was there de-escalation of care discussed even if they declined (Discuss DNR or withdrawal of care, Hospice)? DNR status @ -No What co-morbidities impacted this encounter? (DM, HTN, Smoking, COPD, CAD, Cancer, CVA, ARF, Chemo, Hep., AIDS, mental health diagnosis, sleep apnea, morbid obesity)? @ -None Was patient admitted / discharged? Hospital course, mention meds given and ro wrangell, prescriptions, significant lab abnormalities, going to OR and other pertinent info. @ -67-year-old male presents emergency part for alleged dehydration versus social dysfunction. Vital signs stable. Patient has no complaints. Physical examination unremarkable. Patient allegedly discussed social support. He is a [facility] patient. sales planning manager discussed patient case with [facility] team and will make sure that he has appropriate home resources. Patient is encouraged not to refused those services Undiagnosed new problem with uncertain prognosis? @ -No Drug Therapy requiring intensive monitoring for toxicity (Heparin, Nitro, Insulin, Cardizem)? @ -No Were any procedures done? @ -No Diagnosis/symptom? Acute, or Chronic, or Acute on Chronic? Uncomplicated (without systemic symptoms) or Complicated (systemic symptoms)? @ -. 1. Gravely disabled Side effects of treatment? @ -No Exacerbation, Progression, or Severe Exacerbation? @ -No Poses a threat to life or bodily function? How? (Chest pain, [place], [place], pneumonia, PE, COPD, DKA, ARF, appy, cholecystitis, CVA, Diverticulitis, Homicidal, Suicidal, threat to staff... and all critical care pts) @ -No - Lab Data Result diagrams: 10/16/22 14:18 10/16/22 14:18 Lab Results 10/16/22 10/16/22 Range/Units 14:18 14:18 WBC 9.4 (3.8-10.6) k/uL RBC 5.30 (4.30-5.90) m/uL Hgb 16.0 (13.0-17.5) gm/dL Hct 49.2 (39.0-53.0) % MCV 92.7 (80.0-100.0) fL MCH 30.3 (25.0-35.0) pg MCHC 32.6 (31.0-37.0) g/dL RDW 12.7 (11.5-15.5) % Plt Count 287 (150-450) k/uL MPV 7.5 Neutrophils % 76 % Lymphocytes % 15 % Monocytes % 6 % Eosinophils % 3 % Basophils % 0 % Neutrophils # 7.1 (1.3-7.7) k/uL Lymphocytes # 1.4 (1.0-4.8) k/uL Monocytes # 0.6 (0-1.0) k/uL Eosinophils # 0.3 (0-0.7) k/uL Basophils # 0.0 (0-0.2) k/uL Sodium 141 (137-145) mmol/L Potassium 4.2 (3.5-5.1) mmol/L Chloride 107 (98-107) mmol/L Carbon Dioxide 28 (22-30) mmol/L Anion Gap 6 mmol/L BUN 25 H (9-20) mg/dL Creatinine 0.62 L (0.66-1.25) mg/dL Est GFR (CKD-EPI)AfAm >90 (>60 ml/min/1.73 sqM) Est GFR (CKD-EPI)NonAf >90 (>60 ml/min/1.73 sqM) Glucose 86 (74-99) mg/dL Calcium 9.0 (8.4-10.2) mg/dL Disposition Clinical Impression: Gravely disabled Disposition: HOME SELF-CARE Condition: Good Instructions (If sedation given, give patient instructions): Weakness (ED) Is patient prescribed a controlled substance at d/c from ED?: No Referrals: Anupama Ruiz NPC [REFERRING] - 1-2 days Time of Disposition: 15:47
[2022-10-16 14:38] LABS: Basophils % (A) 0 %; Eosinophils # (A) 0.3 k/uL (0-0.7); Eosinophils % (A) 3 %; HCT 49.2 % (39.0-53.0); Lymphocytes # (A) 1.4 k/uL (1.0-4.8); Lymphocytes % (A) 15 %; MCH 30.3 pg (25.0-35.0); MCHC 32.6 g/dL (31.0-37.0); MCV 92.7 fL (80.0-100.0); Mean Platelet Volume 7.5; Monocytes # (A) 0.6 k/uL (0-1.0); Monocytes % (A) 6 %; Neutrophils # (A) 7.1 k/uL (1.3-7.7); Neutrophils % (A) 76 %; Platelet Count 287 k/uL (150-450); RDW 12.7 % (11.5-15.5); WBC 9.4 k/uL (3.8-10.6)
[2022-10-16 14:51] LABS: African American GFR (CKD) >90 (>60 ml/min/1.73 sqM); Anion Gap 6 mmol/L; Blood Urea Nitrogen 25 mg/dL (9-20); Carbon Dioxide 28 mmol/L (22-30); Chloride 107 mmol/L (98-107); Non-African American GFR(CKD) >90 (>60 ml/min/1.73 sqM); Potassium 4.2 mmol/L (3.5-5.1); Sodium 141 mmol/L (137-145)
[2022-10-16 14:56] LABS: Glucose 86 mg/dL (74-99)
[2022-10-16 16:22] VITALS: BP 159/87; PULSE 86; RESP 20
== END 2022-10-16 16:52 | disposition home or self-care (01) ==
LOC: EC 12:53
DX: R53.1 Weakness (principal); F17.200 Nicotine dependence, unspecified, uncomplicated; F12.90 Cannabis use, unspecified, uncomplicated; G20 Parkinson's disease; Z73.6 Limitation of activities due to disability; Z79.890 Hormone replacement therapy; Z79.899 Other long term (current) drug therapy
CPT/HCPCS: 36415; 80048; 85025; 93005; 96360; 99285

== ENCOUNTER → 2022-12-27 | Outpatient (CLI) | payer MEDICARE, OTHER ==
--- NOTE | 2022-12-27 13:30 | CTL ---
EXAMINATION TYPE: CT Low Dose Lung DATE OF EXAM: 12/27/2022 11:54 AM CLINICAL INDICATION:Male, 67 years old with history of Z87.891 PERSONAL HISTORY OF NICOTINE DEPENDENC E; Personal history of tobacco use. , history of tobacco use. COMPARISON: None TECHNIQUE: Multiple axial non-contrast scans were obtained from approximately the lung apices through the upper abdomen. Coronal and sagittal reformatted images were obtained. Low dose technique was uti lized. CT DLP: 96.7 mGycm, Automated exposure control for dose reduction was used. CT Contrast: Contrast used: None Oral contrast used: None FINDINGS: ======== Lack of intravenous contrast and low dose technique limits the evaluation of the vascular and soft ti ssue structures. Motion limits evaluation. LUNGS: No evidence of pulmonary fibrosis. No evidence of focal consolidation, pneumothorax or pleural effusion. Posterior streaky atelectasis with calcifications. In the left lung base. Nodules: RUL: None. RML: None. RLL: None. RUTHANN: None. LLL: None. AIRWAY: Patent and unremarkable. HEART: Mild/moderate atherosclerosis of the coronary arteries. The heart is mildly enlarged for size. MEDIASTINUM: No gross evidence of adenopathy. VASCULATURE: No aortic aneurysm. MUSCULOSKELETAL: Moderate disc degeneration changes are present throughout the thoracolumbar spine. SOFT TISSUES/LYMPH NODES: Unremarkable. LOWER NECK: No significant findings. UPPER ABDOMEN: No significant findings. IMPRESSION: Motion limited exam no evidence for clinically significant pulmonary nodule.. CT LUNG RAD AND CT CHEST RECOMMENDATION: Lung-Rad 1 Negative: Continue annual screening with LDCT in 12 months. S Modifier (other clinically significant findings): None Recommend smoking cessation (if current smoker), or continuation of smoking cessation (if prior smoke r). Annual screening for lung cancer with low-dose computed tomography is recommended in adults ages 55 to 77 years who have a 30 pack-year smoking history and currently smoke or have quit within the pa st 15 years. Screening should be discontinued once a person has not smoked for 15 years or develops a health problem that substantially limits life expectancy or the ability or willingness to have curat vasyl lung surgery. Lung rads 2021 [email or web address]
== END | disposition home or self-care (01) ==
LOC: RADCTMAIN 12-05 09:34
PROVIDERS: ATTEND Emergency Medicine
DX: Z12.2 Encounter for screening for malignant neoplasm of respiratory organs (principal); Z87.891 Personal history of nicotine dependence
CPT/HCPCS: 71271

== ENCOUNTER 2023-01-17 13:22 | Inpatient (IN) | payer OTHER ==
[2023-01-17 13:34] VITALS: TEMP 97.6
--- NOTE | 2023-01-17 14:02 | ED ---
General Adult HPI - General Chief complaint: Extremity Problem,Nontraumatic Stated complaint: Neck Pain Time Seen by Provider: 01/17/23 13:35 Source: patient, EMS, RN notes reviewed, old records reviewed Mode of arrival: EMS Limitations: no limitations - History of Present Illness Initial comments: 67-year-old male with Parkinson's and limited ambulation. Currently residing [facility] for [facility]. Patient states that about one week ago he was being rolled in bed and had a sudden sharp pain in his neck. He states he's had previous neck surgery. Since that time he has had some numbness into his bilateral fingertips. He does report weakness but states that he has Parkinson's and has had global weakness for some time. This is currently while he is residing at the retirement secondary to weakness and difficulty ambulating. Patient was sent in with request for CT imaging of the neck. - Related Data Home Medications Medication Instructions Recorded Confirmed Atorvastatin [Lipitor] 20 mg PO HS 05/28/20 12/15/22 Levothyroxine Sodium [Synthroid] 50 mcg PO AC-BRKFST 05/28/20 12/15/22 Mirabegron [Myrbetriq] 50 mg PO DAILY 05/28/20 12/15/22 Tamsulosin [Flomax] 0.4 mg PO HS 05/28/20 12/15/22 amantadine HCL [Amantadine] 100 mg PO BID 09/09/21 12/15/22 Acetaminophen Tab [Tylenol] 650 mg PO TID PRN 06/23/22 12/15/22 Calcium Carbonate 500 mg PO BID 06/23/22 12/15/22 Carbidopa/Levodopa [Carbidopa-Levo 1 tab PO BID PRN 06/23/22 12/15/22 25-250 mg Odt] Cholecalciferol [Vitamin D3 (125 125 mcg PO DAILY 06/23/22 12/15/22 Mcg = 5000 Iu)] Gabapentin [Neurontin] 400 mg PO TID 10/16/22 12/15/22 Ibuprofen [Motrin Ib] 400 mg PO TID-W/MEALS PRN 10/16/22 12/15/22 Menthol [Biofreeze] 1 applic TOPICAL TID PRN 10/16/22 12/15/22 Carbidopa/Levodopa [Carbidopa-Levo 1 tab PO 5XD 12/15/22 12/15/22 25-250 mg Odt] Previous Rx's Medication Instructions Recorded Amoxic-Pot Clav 875-125Mg 1 tab PO BID 10 Days #20 tab 12/21/22 [Augmentin 875-125] HYDROcodone/APAP 10-325MG [[place] 1 each PO Q4HR PRN #10 tab 12/21/22 10-325] Allergies Allergy/AdvReac Type Severity Reaction Status Date / Time No Known Allergies Allergy Verified 01/17/23 14:35 Review of Systems ROS Statement: Those systems with pertinent positive or pertinent negative responses have been documented in the HPI. ROS Other: All systems not noted in ROS Statement are negative. Past Medical History Additional Past Medical History / Comment(s): parkinson's, chronic lower back History of Any Multi-Drug Resistant Organisms: MRSA Date of last positivie culture/infection: 08/17/20 MDRO Source:: MRSA KNEE Past Surgical History: Orthopedic Surgery Additional Past Surgical History / Comment(s): L leg Past Psychological History: No Psychological Hx Reported Smoking Status: Former smoker Past Alcohol Use History: Occasional Past Drug Use History: Marijuana - Past Family History Father History Unknown: Yes Family Medical History: Cancer Additional Family Medical History / Comment(s): prostate CA General Exam Limitations: no limitations General appearance: alert, in no apparent distress Head exam: Present: atraumatic, normocephalic Eye exam: Present: normal appearance, PERRL Neck exam: Present: normal inspection. Absent: tenderness Respiratory exam: Present: normal lung sounds bilaterally. Absent: respiratory distress, wheezes Cardiovascular Exam: Present: regular rate, normal rhythm GI/Abdominal exam: Present: soft. Absent: distended, tenderness Extremities exam: Present: other (Weakness in all 4 extremities. There is some contracture of the bilateral hands. Patient is able to move both arms minimally against gravity.) Neurological exam: Present: alert, oriented X3 Psychiatric exam: Present: normal affect, normal mood Skin exam: Present: warm, dry, intact Course Vital Signs 01/17/23 13:30 Temperature 97.6 F Pulse Rate 64 Respiratory 18 Rate Blood Pressure 146/83 O2 Sat by Pulse 94 L Oximetry - Reevaluation(s) Reevaluation #1: 01/17/23 14:46 Laboratory Studies will be obtained, results pending. MRI cervical spine ordered Medical Decision Making - Medical Decision Making Was pt. sent in by a medical professional or institution (MELINDA Small, CONTRACT TECHNICIAN, urgent care, hospital, or retirement...) When possible be specific @ -No Did you speak to anyone other than the patient for history (EMS, parent, family, police, friend...)? What history was obtained from this source @ -[Paramedics Did you review nursing and triage notes (agree or disagree)? Why? @ -I reviewed and agree with nursing and triage notes Were old charts reviewed (outside hosp., previous admission, EMS record, old EKG, old radiological studies, urgent care reports/EKG's, retirement records)? Report findings @ -No old charts were reviewed Differential Diagnosis (chest pain, altered mental status, abdominal pain women, abdominal pain men, vaginal bleeding, weakness, fever, dyspnea, syncope, headache, dizziness, GI bleed, back pain, seizure, CVA, palpatations, mental health, musculoskeletal)? @ -Central cord syndrome, progressive weakness, Parkinson's disease EKG interpreted by me (3pts min.). @ -As above X-rays interpreted by me (1pt min.). @ -None done CT interpreted by me (1pt min.). @CT cervical spine appears similar to prior, old odontoid fracture, extensive calcifications, no acute fracture identified. U/S interpreted by me (1pt. min.). @ -None done What testing was considered but not performed or refused? (CT, X-rays, U/S, labs)? Why? @ -None What meds were considered but not given or refused? Why? @ -None Did you discuss the management of the patient with other professionals (professionals i.e. MELINDA Small, CONTRACT TECHNICIAN, lab, RT, psych nurse, social service assistant, divorce lawyer, teacher, commanding officer motorized squad, case management manager)? Give summary @ -[Case discussed with [facility] and Kourtney elizalde for orthopedics Was smoking cessation discussed for >3mins.? @ -No Was critical care preformed (if so, how long)? @ -No Were there social determinants of health that impacted care today? How? (Homelessness, low income, unemployed, alcoholism, drug addiction, transportation, low edu. Level, literacy, decrease access to med. care, [facility], rehab)? @ -No Was there de-escalation of care discussed even if they declined (Discuss DNR or withdrawal of care, Hospice)? DNR status @ -No What co-morbidities impacted this encounter? (DM, HTN, Smoking, COPD, CAD, Cancer, CVA, ARF, Chemo, Hep., AIDS, mental health diagnosis, sleep apnea, morbid obesity)? @ -[Parkinson's disease. Was patient admitted / discharged? Hospital course, mention meds given and route, prescriptions, significant lab abnormalities, going to OR and other pertinent info. @ Patient will be admitted for MRI cervical spine, both neurology and orthopedic consult. Undiagnosed new problem with uncertain prognosis? @ -No Drug Therapy requiring intensive monitoring for toxicity (Heparin, Nitro, Insulin, Cardizem)? @ -No Were any procedures done? @ -No Diagnosis/symptom? @ -Bilateral upper extremity numbness and weakness Acute, or Chronic, or Acute on Chronic? @ -[Acute Uncomplicated (without systemic symptoms) or Complicated (systemic symptoms)? @ -[Complicated Side effects of treatment? @ -No Exacerbation, Progression, or Severe Exacerbation? @ -No Poses a threat to life or bodily function? How? (Chest pain, USA, VT, pneumonia, PE, COPD, DKA, ARF, appy, cholecystitis, CVA, Diverticulitis, Homicidal, Suicidal, threat to staff... and all critical care pts) @ -Yes, moderate risk, progressive neurologic dysfunction. Disposition Clinical Impression: Bilateral arm weakness Narrative: Rule out central cord Disposition: ADMITTED IP TO THIS [facility] Condition: Stable Is patient prescribed a controlled substance at d/c from ED?: No Referrals: yAo Schwarz MD [Primary Care Provider] - 1-2 days Time of Disposition: 14:46
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
[2023-01-17] MEDS ORDERED: NALOXONE 0.4 MG/ML 1 ML VIAL IV PRN (14:48)
[2023-01-17 15:23] LABS: Basophils % (A) 1 %; Eosinophils # (A) 0.3 k/uL (0-0.7); Eosinophils % (A) 5 %; HCT 50.4 % (39.0-53.0); HGB 16.4 gm/dL (13.0-17.5); Lymphocytes # (A) 1.5 k/uL (1.0-4.8); Lymphocytes % (A) 25 %; MCH 30.1 pg (25.0-35.0); MCHC 32.5 g/dL (31.0-37.0); MCV 92.7 fL (80.0-100.0); Mean Platelet Volume 7.6; Monocytes # (A) 0.4 k/uL (0-1.0); Monocytes % (A) 7 %; Neutrophils # (A) 3.6 k/uL (1.3-7.7); Neutrophils % (A) 61 %; Platelet Count 189 k/uL (150-450); RBC 5.43 m/uL (4.30-5.90); RDW 14.1 % (11.5-15.5)
[2023-01-17 15:31] LABS: Partial Thromboplastin Time 25.2 sec (22.0-30.0); Prothrombin Time 10.8 sec (9.0-12.0)
[2023-01-17 15:32] LABS: ALT 10 U/L (4-49); AST 16 U/L (17-59); African American GFR (CKD) >90 (>60 ml/min/1.73 sqM); Albumin 3.7 g/dL (3.5-5.0); Alkaline Phosphatase 94 U/L (38-126); Anion Gap 7 mmol/L; Blood Urea Nitrogen 20 mg/dL (9-20); Calcium 9.2 mg/dL (8.4-10.2); Carbon Dioxide 28 mmol/L (22-30); Chloride 107 mmol/L (98-107); Glucose 97 mg/dL (74-99); Non-African American GFR(CKD) >90 (>60 ml/min/1.73 sqM); Potassium 4.3 mmol/L (3.5-5.1); Sodium 142 mmol/L (137-145); Total Bilirubin 0.7 mg/dL (0.2-1.3); Total Protein 6.3 g/dL (6.3-8.2)
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
[2023-01-17] MEDS ORDERED: DEXAMETHASONE SOD PHOSPHATE 10 MG/ML 1 ML VIAL IVP STA (17:49)
[2023-01-17] MEDS ORDERED: CARBIDOPA-LEVODOPA 25-250 MG 1 EACH TAB PO PRN (17:53)
[2023-01-17] MEDS ORDERED: METHYL SALICYLATE-MENTHOL OINT (3 OZ TUBE) TOPICAL PRN (17:54)
[2023-01-17] MEDS ORDERED: HYDROcodone/APAP 10-325MG 1 EACH TAB PO PRN (17:54)
--- NOTE | 2023-01-17 18:49 | P.HPIM ---
History of Present Illness H&P Date: 01/17/23 Patient is a 67-year-old male with a history of Parkinson's disease, prior cervical decompression and fusion, recent lower extremity cellulitis discharged from hospital on 12/21/22 with completion of antibiotics, hypertension, dyslipidemia, BPH, and hypothyroidism who presented from [facility] due to b/l upper extremity weakness and numbness. In the emergency department his vital signs were within normal limit. Labs completed include CBC, coags, and CMP all which were within normal limits. CT cervical spine demonstrated prior odontoid process fracture, calcification of the posterior longitudinal ligament with spinal canal narrowing at C2 to T1 with bridging and does mow fight from C7 and extending interiorly along with fixation hardware C3 to T1. Orthopedic spine surgery was consulted. Patient seen and examined at bedside. He reports that approximately one week ago he was getting moved in bed and he started feeling some pain in his right shoulder and then felt a popping in the central spine with a lightning-type pain across. Since that time he has had bilateral upper extremity numbness starting in his mid forearm and extending down to the tips of his fingers. He also notes significant upper extremity weakness. He has had difficulty with feeding himself. He also reports that over the last several days the fingers on his left side are curling in. He reports that he has had significant tremors on his right thigh due to Parkinson's disease. Recently he has been at a [facility] facility after a bout of cellulitis and having significant weakness. Prior to that [facility] 6 months since he had had multiple falls when living with his friends. He has completed his ABX and has not had anymore symptoms of cellulitis. He denies any fevers, chills, nausea, vomiting, diarrhea, unusual dysuria. He denies any difficulties with swallowing but does state that sometimes his voice gets weak due to his Pa rkinson's disease. He was using a walker prior to his cellulitis event, but has been weak at rehab and is working on being able to walk again. He reports that he had surgery at [facility] about 5 years ago due to cervical stenosis- pain was his only symptom at that time. Vital signs reviewed General: nontoxic, no distress, appears at stated age Derm: warm, dry Eyes: EOMI, no lid lag, anicteric sclera, pupils equal round reactive to light ENT: Nose and ears atraumatic, no thrush, no pharyngeal erythema Cardiovascular: S1S2 reg, no murmur, positive posterior tibial pulse bilateral, no edema, capillary refill less than 2 seconds Lungs: clear to auscultation bilateral, no rhonchi, no rales, no wheeze, no accessory muscle use Abdominal: soft, nontender to palpation, no guarding, no appreciable organomegaly, normal bowel sounds Ext: no gross muscle atrophy, muscle strength 5 out of 5 in all 4 extremities, no contractures Neuro: CN II-XII grossly intact, light touch intact bilateral lower extremities, diminished touch bilateral upper extremities from mid forearm to distal fingertips, inability to extend fingers on the left hand, diminished farm appraiser strength bilateral upper extremities left greater than right. Weakness with supination and pronation of bilateral upper extremities, muscle strength 4 out of 5 with abduction and abduction of bilateral upper extremities and flexion and extension at the shoulder. Muscle strength 3 out of 5 with flexion and extension at the elbow, significant cogwheeling of the right upper extremity. No significant pinpoint tenderness of the cervical spine. Bilateral lower extremity is unable to lift off the bed and hold for 15 seconds, dorsi and plantar flexion are 4 out of 5 bilateral Psych: Alert, oriented, appropriate affect Assessment/Plan: B/L upper extremity paresis and paresthesias -Decadron 10 mg IV push 1 now -Case discussed with Kourtney Han, nurse practitioner who is rounding for Dr Jones and has reviewed the case with him. They recommended transfer to tertiary care center secondary to possible central spinal cord compression. - Patient accepted to [facility] by Dr. Annabella Archibald- he asks for hard collar to be placed prior to transfer. Parkinson's disease -Resume home Sinemet dosing with first dose now Hypertension BPH Dyslipidemia Hypothyroidism - home meds reviewed and resumed, BP currently elevated at 165/89 Imaging: As per HPI Data Review: As per HPI Urgent transfer to [facility] for nerosurgical evaluation.This document will serve as H and P and discharge summary. This dictation was prepared using [employer] voice recognition software. Though every attempt is made to correct errors during dictation some may still exist. Past Medical History Past Medical History: Hyperlipidemia, Hypertension Additional Past Medical History / Comment(s): parkinson's, chronic lower back, BPH, Cellulitis b/l LE (12/21/22), hypothyroidism History of Any Multi-Drug Resistant Organisms: MRSA Date of last positivie culture/infection: 08/17/20 MDRO Source:: MRSA KNEE Past Surgical History: Orthopedic Surgery Additional Past Surgical History / Comment(s): L leg, right great toe, Cervical decompression and fusion Past Anesthesia/Blood Transfusion Reactions: No Reported Reaction Past Psychological History: No Psychological Hx Reported Smoking Status: Former smoker Past Alcohol Use History: Occasional Past Drug Use History: Marijuana - Past Family History Father History Unknown: Yes Family Medical History: Cancer Additional Family Medical History / Comment(s): prostate CA Medications and Allergies Home Medications Medication Instructions Recorded Confirmed Type Atorvastatin [Lipitor] 20 mg PO HS 05/28/20 01/17/23 History Levothyroxine Sodium [Synthroid] 50 mcg PO AC-BRKFST 05/28/20 01/17/23 History Mirabegron [Myrbetriq] 50 mg PO DAILY 05/28/20 01/17/23 History Tamsulosin [Flomax] 0.4 mg PO DAILY 05/28/20 01/17/23 History amantadine HCL [Amantadine] 100 mg PO BID 09/09/21 01/17/23 History Carbidopa/Levodopa [Carbidopa-Levo 1 tab PO BID PRN 06/23/22 01/17/23 History 25-250 mg Odt] Cholecalciferol [Vitamin D3 (125 125 mcg PO DAILY 06/23/22 01/17/23 History Mcg = 5000 Iu)] Gabapentin [Neurontin] 400 mg PO TID@0500,1300,2100 10/16/22 01/17/23 History Menthol [Biofreeze] 1 applic TOPICAL Q8H PRN 10/16/22 01/17/23 History Acetaminophen [Tylenol 8 Hour] 650 mg PO TID@0100,0900,1700 01/17/23 01/17/23 History Baclofen 5 mg PO Q8HR@0500,1300,2100 01/17/23 01/17/23 History Calcium Carbonate [Calcium] 600 mg PO BID 01/17/23 01/17/23 History Carbidopa-Levodopa 25-250 mg 1 tab PO 5XD 01/17/23 01/17/23 History [Sinemet 25-250] HYDROcodone/APAP 10-325MG [[place] 1 tab PO Q4HR PRN 01/17/23 01/17/23 History 10-325] Healthshake 1 dose PO AC-BID@1200,1800 01/17/23 01/17/23 History Ibuprofen [Motrin] 400 mg PO TID@0500,1300,2100 01/17/23 01/17/23 History Losartan [Cozaar] 50 mg PO DAILY 01/17/23 01/17/23 History Allergies Allergy/AdvReac Type Severity Reaction Status Date / Time No Known Allergies Allergy Verified 01/17/23 14:35 Physical Exam Osteopathic Statement: *. No significant issues noted on an osteopathic structural exam other than those noted in the History and Physical/Consult. Vitals: Vital Signs Temp Pulse Resp BP Pulse Ox 01/17/23 14:56 66 18 165/89 96 01/17/23 13:30 97.6 F 64 18 146/83 94 L Intake and Output 01/17/23 01/17/23 01/17/23 06:59 14:59 22:59 Other: Weight 108.862 kg 108.862 kg Results CBC & Chem 7: 01/17/23 15:07 01/17/23 15:07 Labs: Abnormal Lab Results - Last 24 Hours (Table) 01/17/23 Range/Units 15:07 AST 16 L (17-59) U/L Thrombosis Risk Factor Assmnt - Choose All That Apply Other Risk Factors: Yes Each Risk Factor Represents 2 Points: Age 61-74 years Thrombosis Risk Factor Assessment Total Risk Factor Score: 2 Thrombosis Risk Factor Assessment Level: Low Risk
[2023-01-17] MEDS ORDERED: MORPHINE SULFATE 4 MG/ML SYRINGE IVP PRN (18:57)
--- NOTE | 2023-01-17 19:00 | P.DS ---
Providers Date of admission: 01/17/23 14:48 Expected date of discharge: 01/17/23 Attending physician: Kalyn Montesinos DO Consults: 01/17/23 14:48 Consult Physician Routine Consulting Provider: Roger Kunz Consult Reason/Comments: Parkinson's disease, bilateral upper extremity arm weakness Do you want consulting provider notified?: Yes Consult Physician Routine Consulting Provider: Tameka Villa Consult Reason/Comments: Bilateral arm weakness Do you want consulting provider notified?: Yes Primary care physician: Ayo Schwarz MD Hospital Course: Patient is a 67-year-old male with a history of Parkinson's disease, prior cervical decompression and fusion, recent lower extremity cellulitis discharged from hospital on 12/21/22 with completion of antibiotics, hypertension, dyslipidemia, BPH, and hypothyroidism who presented from [facility] due to b/l upper extremity weakness and numbness. In the emergency department his vital signs were within normal limit. Labs completed include CBC, coags, and CMP all which were within normal limits. CT cervical spine demonstrated prior odontoid process fracture, calcification of the posterior longitudinal ligament with spinal canal narrowing at C2 to T1 with bridging and does mow fight from C7 and extending interiorly along with fixation hardware C3 to T1. Orthopedic spine surgery was consulted. Patient seen and examined at bedside. He reports that approximately one week ago he was getting moved in bed and he started feeling some pain in his right shoulder and then felt a popping in the central spine with a lightning-type pain across. Since that time he has had bilateral upper extremity numbness starting in his mid forearm and extending down to the tips of his fingers. He also notes significant upper extremity weakness. He has had difficulty with feeding himself. He also reports that over the last several days the fingers on his left side are curling in. He reports that he has had significant tremors on his right thigh due to Parkinson's disease. Recently he has been at a intermediate facility after a bout of cellulitis and having significant weakness. Prior to [facility] months since he had had multiple falls when living with his friends. He has completed his ABX and has not had anymore symptoms of cellulitis. He denies any fevers, chills, nausea, vomiting, diarrhea, unusual dysuria. He denies any difficulties with swallowing but does state that sometimes his voice gets weak due to his Parkinson's disease. He was using a walker prior to his cellulitis event, but has been weak at rehab and is working on being able to walk again. He reports that he had surgery at [facility] about 5 years ago due to cervical stenosis- pain was his only symptom at that time. Vital signs reviewed General: nontoxic, no distress, appears at stated age Derm: warm, dry Eyes: EOMI, no lid lag, anicteric sclera, pupils equal round reactive to light ENT: Nose and ears atraumatic, no thrush, no pharyngeal erythema Cardiovascular: S1S2 reg, no murmur, positive posterior tibial pulse bilateral, no edema, capillary refill less than 2 seconds Lungs: clear to auscultation bilateral, no rhonchi, no rales, no wheeze, no accessory muscle use Abdominal: soft, nontender to palpation, no guarding, no appreciable organomegaly, normal bowel sounds Ext: no gross muscle atrophy, muscle strength 5 out of 5 in all 4 extremities, no contractures Neuro: CN II-XII grossly intact, light touch intact bilateral lower extremities, diminished touch bilateral upper extremities from mid forearm to distal fingertips, inability to extend fingers on the left hand, diminished production quality analyst strength bilateral upper extremities left greater than right. Weakness with supination and pronation of bilateral upper extremities, muscle strength 4 out of 5 with abduction and abduction of bilateral upper extremities and flexion and extension at the shoulder. Muscle strength 3 out of 5 with flexion and extension at the elbow, significant cogwheeling of the right upper extremity. No significant pinpoint tenderness of the cervical spine. Bilateral lower ext remity is unable to lift off the bed and hold for 15 seconds, dorsi and plantar flexion are 4 out of 5 bilateral Psych: Alert, oriented, appropriate affect Assessment/Plan: B/L upper extremity paresis and paresthesias -Decadron 10 mg IV push 1 now -Case discussed with Kourtney Han, nurse practitioner who is rounding for Dr. Villa and has reviewed the case with him. They recommended transfer to tertiary care center secondary to possible central spinal cord compression. - Patient accepted to [facility] by Dr. Annabella Archibald- he asks for hard collar to be placed prior to transfer. (this was completed) Parkinson's disease -Resume home Sinemet dosing with first dose now Hypertension BPH Dyslipidemia Hypothyroidism - home meds reviewed and resumed, BP currently elevated at 165/89 Imaging: As per HPI Data Review: As per HPI Urgent transfer to [facility] for nerosurgical evaluation.This document will serve as H and P and discharge summary. This dictation was prepared using [employer] voice recognition software. Though every attempt is made to correct errors during dictation some may still exist. Patient Condition at Discharge: Undetermined Plan - Discharge Summary New Discharge Prescriptions: No Action Tamsulosin [Flomax] 0.4 mg PO DAILY Mirabegron [Myrbetriq] 50 mg PO DAILY Levothyroxine Sodium [Synthroid] 50 mcg PO AC-BRKFST Atorvastatin [Lipitor] 20 mg PO HS amantadine HCL [Amantadine] 100 mg PO BID Cholecalciferol [Vitamin D3 (125 Mcg = 5000 Iu)] 125 mcg PO DAILY Carbidopa/Levodopa [Carbidopa-Levo 25-250 mg Odt] 1 tab PO BID PRN PRN Reason: Shaking HYDROcodone/APAP 10-325MG [[place] 10-325] 1 tab PO Q4HR PRN PRN Reason: Pain Acetaminophen [Tylenol 8 Hour] 650 mg PO TID@0100,0900,1700 Ibuprofen [Motrin] 400 mg PO TID@0500,1300,2100 Menthol [Biofreeze] 1 applic TOPICAL Q8H PRN PRN Reason: shoulder pain Gabapentin [Neurontin] 400 mg PO TID@0500,1300,2100 Healthshake 1 dose PO AC-BID@1200,1800 Baclofen 5 mg PO Q8HR@0500,1300,2100 Calcium Carbonate [Calcium] 600 mg PO BID Carbidopa-Levodopa 25-250 mg [Sinemet 25-250] 1 tab PO 5XD Losartan [Cozaar] 50 mg PO DAILY Discharge Medication List Atorvastatin [Lipitor] 20 mg PO HS 05/28/20 [History] Levothyroxine Sodium [Synthroid] 50 mcg PO AC-BRKFST 05/28/20 [History] Mirabegron [Myrbetriq] 50 mg PO DAILY 05/28/20 [History] Tamsulosin [Flomax] 0.4 mg PO DAILY 05/28/20 [History] amantadine HCL [Amantadine] 100 mg PO BID 09/09/21 [History] Carbidopa/Levodopa [Carbidopa-Levo 25-250 mg Odt] 1 tab PO BID PRN 06/23/22 [History] Cholecalciferol [Vitamin D3 (125 Mcg = 5000 Iu)] 125 mcg PO DAILY 06/23/22 [History] Gabapentin [Neurontin] 400 mg PO TID@0500,1300,2100 10/16/22 [History] Menthol [Biofreeze] 1 applic TOPICAL Q8H PRN 10/16/22 [History] Acetaminophen [Tylenol 8 Hour] 650 mg PO TID@0100,0900,1700 01/17/23 [History] Baclofen 5 mg PO Q8HR@0500,1300,2100 01/17/23 [History] Calcium Carbonate [Calcium] 600 mg PO BID 01/17/23 [History] Carbidopa-Levodopa 25-250 mg [Sinemet 25-250] 1 tab PO 5XD 01/17/23 [History] HYDROcodone/APAP 10-325MG [[place] 10-325] 1 tab PO Q4HR PRN 01/17/23 [History] Healthshake 1 dose PO AC-BID@1200,1800 01/17/23 [History] Ibuprofen [Motrin] 400 mg PO TID@0500,1300,2100 01/17/23 [History] Losartan [Cozaar] 50 mg PO DAILY 01/17/23 [History] Follow up Appointment(s)/Referral(s): Ayo Schwarz MD [Primary Care Provider] - 1-2 days
[2023-01-17] MEDS ORDERED: CARBIDOPA-LEVODOPA 25-250 MG 1 EACH TAB PO SCH (20:00)
[2023-01-17 20:36] VITALS: BP 182/85; PULSE 72; RESP 19
[2023-01-17] MEDS ORDERED: ATORVASTATIN 20 MG TAB PO SCH (21:00)
[2023-01-17] MEDS ORDERED: BACLOFEN 10 MG TAB PO SCH (21:00)
[2023-01-17] MEDS ORDERED: GABAPENTIN 400 MG CAP PO SCH (21:00)
[2023-01-17] MEDS ORDERED: CALCIUM CARBONATE 500 MG CHEWABLE PO SCH (21:00)
[2023-01-18] MEDS ORDERED: LEVOTHYROXINE 50 MCG TAB PO SCH (07:30)
[2023-01-18] MEDS ORDERED: CHOLECALCIFEROL 125 MCG (5000 IU) TABLET PO SCH (09:00)
[2023-01-18] MEDS ORDERED: NON FORMULARY DRUG (Mirabegron [Myrbetriq] 50 MG Tab.Er.24h) PO SCH (09:00)
[2023-01-18] MEDS ORDERED: TAMSULOSIN 0.4 MG CAP.ER.24H PO SCH (09:00)
[2023-01-18] MEDS ORDERED: LOSARTAN 50 MG TAB PO SCH (09:00)
== END 2023-01-17 23:20 | disposition short-term general hospital (02) | DRG 57 ==
LOC: EC 13:22 → 4SSUR 14:48
PROVIDERS: ADMIT Internal Medicine; ATTEND Internal Medicine
DX: G20.A1 Parkinson's disease without dyskinesia, without mention of fluctuations (principal); E78.5 Hyperlipidemia, unspecified; G83.24 Monoplegia of upper limb affecting left nondominant side; I10 Essential (primary) hypertension; N40.0 Benign prostatic hyperplasia without lower urinary tract symptoms; E03.9 Hypothyroidism, unspecified; Z79.890 Hormone replacement therapy; Z79.899 Other long term (current) drug therapy; Z80.42 Family history of malignant neoplasm of prostate; Z87.891 Personal history of nicotine dependence
CPT/HCPCS: 36415; 72125; 80053; 85025; 85610; 85730; 87635; 99285

== ENCOUNTER 2023-02-16 15:59 | Emergency (ER) | payer OTHER ==
[2023-02-16 16:22] VITALS: RESP 18; TEMP 98.1
--- NOTE | 2023-02-16 16:48 | ED ---
Recheck HPI - General Chief Complaint: Recheck/Abnormal Lab/Rx Stated Complaint: Neck Pain,hypotension Time Seen by Provider: 02/16/23 16:16 Source: patient, RN notes reviewed, old records reviewed, Caregiver Mode of arrival: ambulatory Limitations: no limitations - History of Present Illness Initial Comments: This is a 67-year-old male who presents from home for evaluation regards to a near syncopal event. Patient is a postoperative neck surgery patient complaining of neck pain and symptoms are consistent with a vasovagal attempt this patient's blood pressure was low as well as his heart rate, those are both improved here in the ER Dese is complaining of postoperative pain MD Complaint: abnormal lab (Low blood pressure, low heart rate) -: minutes(s) Returns Today for: Called Because of Abnormal Lab/Test Symptoms Since Prior Visit: worsening pain (Worsening neck pain after surgery) Associated Symptoms: none Treatments Prior to Arrival: other (0) - Related Data Home Medications Medication Instructions Recorded Confirmed Atorvastatin [Lipitor] 20 mg PO HS 05/28/20 01/17/23 Levothyroxine Sodium [Synthroid] 50 mcg PO AC-BRKFST 05/28/20 01/17/23 Mirabegron [Myrbetriq] 50 mg PO DAILY 05/28/20 01/17/23 Tamsulosin [Flomax] 0.4 mg PO DAILY 05/28/20 01/17/23 amantadine HCL [Amantadine] 100 mg PO BID 09/09/21 01/17/23 Carbidopa/Levodopa [Carbidopa-Levo 1 tab PO BID PRN 06/23/22 01/17/23 25-250 mg Odt] Cholecalciferol [Vitamin D3 (125 125 mcg PO DAILY 06/23/22 01/17/23 Mcg = 5000 Iu)] Gabapentin [Neurontin] 400 mg PO TID@0500,1300,2100 10/16/22 01/17/23 Menthol [Biofreeze] 1 applic TOPICAL Q8H PRN 10/16/22 01/17/23 Acetaminophen [Tylenol 8 Hour] 650 mg PO TID@0100,0900,1700 01/17/23 01/17/23 Baclofen 5 mg PO Q8HR@0500,1300,2100 01/17/23 01/17/23 Calcium Carbonate [Calcium] 600 mg PO BID 01/17/23 01/17/23 Carbidopa-Levodopa 25-250 mg 1 tab PO 5XD 01/17/23 01/17/23 [Sinemet 25-250] HYDROcodone/APAP 10-325MG [Levan 1 tab PO Q4HR PRN 01/17/23 01/17/23 10-325] Healthshake 1 dose PO AC-BID@1200,1800 01/17/23 01/17/23 Ibuprofen [Motrin] 400 mg PO TID@0500,1300,2100 01/17/23 01/17/23 Losartan [Cozaar] 50 mg PO DAILY 01/17/23 01/17/23 Allergies Allergy/AdvReac Type Severity Reaction Status Date / Time No Known Allergies Allergy Verified 01/17/23 14:35 Review of Systems ROS Statement: Those systems with pertinent positive or pertinent negative responses have been documented in the HPI. ROS Other: All systems not noted in ROS Statement are negative. Past Medical History Past Medical History: Hyperlipidemia, Hypertension Additional Past Medical History / Comment(s): parkinson's, chronic lower back, BPH, Cellulitis b/l LE (12/21/22), hypothyroidism History of Any Multi-Drug Resistant Organisms: MRSA Date of last positivie culture/infection: 08/17/20 MDRO Source:: MRSA KNEE Past Surgical History: Orthopedic Surgery Additional Past Surgical History / Comment(s): L leg, right great toe, Cervical decompression and fusion Past Anesthesia/Blood Transfusion Reactions: No Reported Reaction Past Psychological History: No Psychological Hx Reported Smoking Status: Former smoker Past Alcohol Use History: Occasional Past Drug Use History: Marijuana - Past Family History Father History Unknown: Yes Family Medical History: Cancer Additional Family Medical History / Comment(s): prostate CA General Exam Limitations: no limitations General appearance: alert, in no apparent distress Head exam: Present: atraumatic, normocephalic, normal inspection Eye exam: Present: normal appearance, PERRL, EOMI. Absent: scleral icterus, conjunctival injection, periorbital swelling ENT exam: Present: normal exam, mucous membranes moist Neck exam: Present: normal inspection. Absent: tenderness, meningismus, lymphadenopathy Respiratory exam: Present: normal lung sounds bilaterally. Absent: respiratory distress, wheezes, rales, rhonchi, stridor Cardiovascular Exam: Present: regular rate, normal rhythm, normal heart sounds. Absent: systolic murmur, diastolic murmur, rubs, gallop, clicks GI/Abdominal exam: Present: soft, normal bowel sounds. Absent: distended, tenderness, guarding, rebound, rigid Extremities exam: Present: normal inspection, full ROM, normal capillary refill. Absent: tenderness, pedal edema, joint swelling, calf tenderness Back exam: Present: normal inspection Neurological exam: Present: alert, oriented X3, CN II-XII intact Psychiatric exam: Present: normal affect, normal mood Skin exam: Present: warm, dry, intact, normal color. Absent: rash Course Vital Signs 02/16/23 02/16/23 02/16/23 16:03 17:06 18:04 Temperature 98.1 F Pulse Rate 64 60 60 Respiratory 18 18 18 Rate Blood Pressure 91/59 106/68 136/52 O2 Sat by Pulse 94 L 98 98 Oximetry 02/16/23 02/16/23 18:59 19:37 Temperature Pulse Rate 60 70 Respiratory 18 18 Rate Blood Pressure 102/56 O2 Sat by Pulse 96 Oximetry - Reevaluation(s) Reevaluation #1: 02/16/23 Medical records reviewed Reevaluation #2: 02/16/23 Patient symptoms are improved Reevaluation #3: 02/16/23 Patient informed of results questions answered Reevaluation #4: Was pt. sent in by a medical professional or institution (, PA, GENERAL LABOR FORKLIFT OPERATOR, urgent care, hospital, or shelter...) When possible be specific @ -no Did you speak to anyone other than the patient for history (EMS, parent, family, police, friend...)? What history was obtained from this source @ -no Did you review nursing and triage notes (agree or disagree)? Why? @ -agree Are old charts reviewed (outside hosp., previous admission, EMS record, old EKG, old radiological studies, urgent care reports/EKG's, shelter records)? Report findings @ -yes Differential Diagnosis (chest pain, altered mental status, abdominal pain women, abdominal pain men, vaginal bleeding, weakness, fever, dyspnea, syncope, headache, dizziness, GI bleed, back pain, seizure, CVA, palpatations, mental health, musculoskeletal)? @ -prior EKG interpreted by me (3pts min.). @ -yes X-rays interpreted by me (1pt min.). @ -yes CT interpreted by me (1pt min.). @ -no U/S interpreted by me (1pt. min.). @ -no What testing was considered but not performed or refused? (CT, X-rays, U/S, l abs)? Why? @ -none What meds were considered but not given or refused? Why? @ -none Did you discuss the management of the patient with other professionals (professionals i.e. Dr., PA, GENERAL LABOR FORKLIFT OPERATOR, lab, RT, psych nurse, health care social worker, machine umbrella tipper, teacher, strike operations officer, foster care case manager)? Give summary @ -no Was smoking cessation discussed for >3mins.? @ -no Was critical care preformed (if so, how long)? @ -no Were there social determinants of health that impacted care today? How? (Homelessness, low income, unemployed, alcoholism, drug addiction, transportation, low edu. Level, literacy, decrease access to med. care, fci, rehab)? @ -none Was there de-escalation of care discussed even if they declined (Discuss DNR or withdrawal of care, Hospice)? DNR status @ -no What co-morbidities impacted this encounter? (DM, HTN, Smoking, COPD, CAD, Cancer, CVA, ARF, Chemo, Hep., AIDS, mental health diagnosis, sleep apnea, morbid obesity)? @ -none Was patient admitted / discharged? Hospital course, mention meds given and route, prescriptions, significant lab abnormalities, going to OR and other pertinent info. @ - 67 male to the emergency department for evaluation of neck pain in the postoperative period. Neck pain is controlled well here, patient is no acute findings and labs vital signs or testing. Patient feels improved and can be discharged home Discharge Undiagnosed new problem with uncertain prognosis? @ -no Drug Therapy requiring intensive monitoring for toxicity (Heparin, Nitro, Insulin, Cardizem)? @ -no Were any procedures done? @ -no Diagnosis/symptom? @ -Postoperative pain Acute, or Chronic, or Acute on Chronic? @ -Acute Uncomplicated (without systemic symptoms) or Complicated (systemic symptoms)? @ -Complicated Side effects of treatment? @ -no Exacerbation, Progression, or Severe Exacerbation? @ -exacerbation Poses a threat to life or bodily function? How? (Chest pain, [place], [place], pneumonia, PE, COPD, DKA, ARF, appy, cholecystitis, CVA, Diverticulitis, Homicidal, Suici harry, threat to staff... and all critical care pts) @ -yes postoperative neck pain, low blood pressure low heart rate Reevaluation #5: Differential Weakness: Hypoglycemia, shock, sepsis, hyponatremia, anemia, infection, TX, ETOH, adverse medicine reaction, overdose, stroke, this is not meant to be an all-inclusive list. Medical Decision Making - Medical Decision Making 67 male to the emergency department for evaluation of neck pain in the postoperative period. Neck pain is controlled well here, patient is no acute findings and labs vital signs or testing. Patient feels improved and can be discharged home - Lab Data Result diagrams: 02/16/23 16:39 02/16/23 16:39 Lab Results 02/16/23 02/16/23 02/16/23 Range/Units 16:39 16:39 16:39 WBC 8.7 (3.8-10.6) k/uL RBC 4.05 L (4.30-5.90) m/uL Hgb 11.8 L D (13.0-17.5) gm/dL Hct 37.2 L (39.0-53.0) % MCV 91.8 (80.0-100.0) fL MCH 29.2 (25.0-35.0) pg MCHC 31.8 (31.0-37.0) g/dL RDW 14.0 (11.5-15.5) % Plt Count 267 (150-450) k/uL MPV 8.2 Neutrophils % 67 % Lymphocytes % 20 % Monocytes % 6 % Eosinophils % 6 % Basophils % 0 % Neutrophils # 5.8 (1.3-7.7) k/uL Lymphocytes # 1.7 (1.0-4.8) k/uL Monocytes # 0.5 (0-1.0) k/uL Eosinophils # 0.5 (0-0.7) k/uL Basophils # 0.0 (0-0.2) k/uL Hypochromasia Slight PT 11.1 (10.0-12.5) sec INR 1.0 (<1.2) APTT 25.3 (22.0-30.0) sec Sodium 142 (137-145) mmol/L Potassium 4.7 (3.5-5.1) mmol/L Chloride 103 (98-107) mmol/L Carbon Dioxide 29 (22-30) mmol/L Anion Gap 10 mmol/L BUN 22 H (9-20) mg/dL Creatinine 1.36 H (0.66-1.25) mg/dL Est GFR (CKD-EPI)AfAm 62 (>60 ml/min/1.73 sqM) Est GFR (CKD-EPI)NonAf 54 (>60 ml/min/1.73 sqM) Glucose 98 (74-99) mg/dL Calcium 9.9 (8.4-10.2) mg/dL Magnesium 2.4 H (1.6-2.3) mg/dL Total Bilirubin 0.7 (0.2-1.3) mg/dL AST 19 (17-59) U/L ALT 9 (4-49) U/L Alkaline Phosphatase 121 (38-126) U/L Troponin I (0.000-0.034) ng/mL Total Protein 6.7 (6.3-8.2) g/dL Albumin 3.8 (3.5-5.0) g/dL 02/16/23 Range/Units 16:39 WBC (3.8-10.6) k/uL RBC (4.30-5.90) m/uL Hgb (13.0-17.5) gm/dL Hct (39.0-53.0) % MCV (80.0-100.0) fL MCH (25.0-35.0) pg MCHC (31.0-37.0) g/dL RDW (11.5-15.5) % Plt Count (150-450) k/uL MPV Neutrophils % % Lymphocytes % % Monocytes % % Eosinophils % % Basophils % % Neutrophils # (1.3-7.7) k/uL Lymphocytes # (1.0-4.8) k/uL Monocytes # (0-1.0) k/uL Eosinophils # (0-0.7) k/uL Basophils # (0-0.2) k/uL Hypochromasia PT (10.0-12.5) sec INR (<1.2) APTT (22.0-30.0) sec Sodium (137-145) mmol/L Potassium (3.5-5.1) mmol/L Chloride (98-107) mmol/L Carbon Dioxide (22-30) mmol/L Anion Gap mmol/L BUN (9-20) mg/dL Creatinine (0.66-1.25) mg/dL Est GFR (CKD-EPI)AfAm (>60 ml/min/1.73 sqM) Est GFR (CKD-EPI)NonAf (>60 ml/min/1.73 sqM) Glucose (74-99) mg/dL Calcium (8.4-10.2) mg/dL Magnesium (1.6-2.3) mg/dL Total Bilirubin (0.2-1.3) mg/dL AST (17-59) U/L ALT (4-49) U/L Alkaline Phosphatase (38-126) U/L Troponin I 0.020 (0.000-0.034) ng/mL Total Protein (6.3-8.2) g/dL Albumin (3.5-5.0) g/dL - EKG Data -: EKG Interpreted by Me (EKG is sinus 65 RI 164 QRS 1:30 QTC 402) - Radiology Data Radiology results: report reviewed (Chest x-rays negative for acute disease), image reviewed Disposition Clinical Impression: Postoperative pain, Vasovagal episode Disposition: HOME SELF-CARE Condition: Good Instructions (If sedation given, give patient instructions): Near Syncope (ED), Neck Pain (ED) Is patient prescribed a controlled substance at d/c from ED?: No Referrals: Jorge Luis Velázquez DO [STAFF PHYSICIAN] - 1-2 days Time of Disposition: 19:15
[2023-02-16 17:00] LABS: ALT 9 U/L (4-49); AST 19 U/L (17-59); African American GFR (CKD) 62 (>60 ml/min/1.73 sqM); Albumin 3.8 g/dL (3.5-5.0); Alkaline Phosphatase 121 U/L (38-126); Anion Gap 10 mmol/L; Blood Urea Nitrogen 22 mg/dL (9-20); Calcium 9.9 mg/dL (8.4-10.2); Carbon Dioxide 29 mmol/L (22-30); Chloride 103 mmol/L (98-107); Glucose 98 mg/dL (74-99); Magnesium 2.4 mg/dL (1.6-2.3); Non-African American GFR(CKD) 54 (>60 ml/min/1.73 sqM); Potassium 4.7 mmol/L (3.5-5.1); Sodium 142 mmol/L (137-145); Total Bilirubin 0.7 mg/dL (0.2-1.3); Total Protein 6.7 g/dL (6.3-8.2)
--- NOTE | 2023-02-16 17:05 | XR ---
EXAMINATION TYPE: XR chest 2V DATE OF EXAM: 02/16/2023 4:51 PM CLINICAL INDICATION:Male, 67 years old with history of Chest Pain; [facility] COMPARISON: Chest radiographs from 09/09/2021. TECHNIQUE: XR chest 2V Frontal and lateral views of the chest. FINDINGS: Lungs/Pleura: There is no evidence of pleural effusion, focal consolidation, or pneumothorax. Pulmonary vascularity: Unremarkable. Heart/mediastinum: Cardiomediastinal silhouette is enlarged and stable. Musculoskeletal: No acute osseous pathology. There is fixation hardware in the lower cervical spine. Degeneration changes of shoulders. IMPRESSION: 1. No acute cardiopulmonary disease/process. No significant change from prior. 2. Cardiomegaly. 3. COPD.
[2023-02-16 17:18] LABS: Basophils % (A) 0 %; Eosinophils # (A) 0.5 k/uL (0-0.7); Eosinophils % (A) 6 %; HCT 37.2 % (39.0-53.0); Hypochromasia Slight; Lymphocytes # (A) 1.7 k/uL (1.0-4.8); Lymphocytes % (A) 20 %; MCH 29.2 pg (25.0-35.0); MCHC 31.8 g/dL (31.0-37.0); MCV 91.8 fL (80.0-100.0); Mean Platelet Volume 8.2; Monocytes # (A) 0.5 k/uL (0-1.0); Monocytes % (A) 6 %; Neutrophils # (A) 5.8 k/uL (1.3-7.7); Neutrophils % (A) 67 %; Platelet Count 267 k/uL (150-450); RBC 4.05 m/uL (4.30-5.90); WBC 8.7 k/uL (3.8-10.6)
[2023-02-16 17:19] LABS: Partial Thromboplastin Time 25.3 sec (22.0-30.0); Prothrombin Time 11.1 sec (10.0-12.5)
[2023-02-16 17:37] LABS: HGB 11.8 gm/dL (13.0-17.5)
[2023-02-16] MEDS ORDERED: HYDROmorphone 0.5 MG/0.5 ML SYRINGE IVP STA (18:58)
[2023-02-16 19:04] VITALS: BP 102/56
[2023-02-16 19:43] VITALS: PULSE 70
== END 2023-02-16 20:51 | disposition home or self-care (01) ==
LOC: SUPCPDRO 15:59 → EEVIPCON 15:59 → EC 15:59
DX: G89.18 Other acute postprocedural pain (principal); M54.2 Cervicalgia; R55 Syncope and collapse; I10 Essential (primary) hypertension; E78.5 Hyperlipidemia, unspecified; F12.90 Cannabis use, unspecified, uncomplicated; Z87.891 Personal history of nicotine dependence; Z79.899 Other long term (current) drug therapy
CPT/HCPCS: 36415; 93005; 80053; 83735; 84484; 85025; 85610; 85730; 71046; 99284; 96374; J1170

== ENCOUNTER 2023-05-21 11:16 | Inpatient (IN) | payer MEDICARE, OTHER ==
[2023-05-21] MEDS ORDERED: VANCOMYCIN IV PER PHARMACY 1 EACH MISC MISCELLANE PRN (11:53)
--- NOTE | 2023-05-21 12:48 | ED ---
General Adult HPI - General Chief complaint: Recheck/Abnormal Lab/Rx Stated complaint: Infection, poss Sepsis Time Seen by Provider: 05/21/23 11:26 Source: patient, EMS, RN notes reviewed, old records reviewed Mode of arrival: EMS Limitations: physical limitation - History of Present Illness Initial comments: 68-year-old male, bedbound secondary to Parkinson's disease presents for evaluation of fever, and stage IV decubitus ulcer. Patient has been unable to see wound care. His history is obtained from the paramedics who transported the patient from custodial. He has had fever. Patient himself does complain of pain in the area of ulceration. - Related Data Home Medications Medication Instructions Recorded Confirmed Atorvastatin [Lipitor] 20 mg PO HS 05/28/20 05/21/23 Levothyroxine Sodium [Synthroid] 50 mcg PO AC-BRKFST 05/28/20 05/21/23 Carbidopa-Levodopa 25-250 mg 1 tab PO TID 01/17/23 05/21/23 [Sinemet 25-250] Enoxaparin [Lovenox] 40 mg SQ DAILY 05/21/23 05/21/23 Famotidine 20 mg PO BID 05/21/23 05/21/23 Gabapentin [Neurontin] 300 mg PO TID 05/21/23 05/21/23 HYDROcodone/APAP 5-325MG [[place] 1 tab PO Q6H PRN 05/21/23 05/21/23 5-325] Ipratropium-Albuterol Nebulize 3 ml INHALATION RT-Q6H PRN 05/21/23 05/21/23 [Duoneb 0.5 mg-3 mg/3 ml Soln] Melatonin 6 mg PO HS 05/21/23 05/21/23 Propylene Glycol/Peg 400/Pf 1 drop BOTH EYES Q2H PRN 05/21/23 05/21/23 [Systane 0.3-0.4% Ophth Dropperette] Prostat 30 ml PO BID 05/21/23 05/21/23 Sennosides/Docusate Sodium [Senna 1 tab PO BID 05/21/23 05/21/23 Plus 8.6-50 mg Tablet] amantadine HCL 200 mg PO BID 05/21/23 05/21/23 clonazePAM [Klonopin ODT] 0.25 mg PO HS PRN 05/21/23 05/21/23 methocarbamoL [Robaxin] 1,000 mg PO Q12H 05/21/23 05/21/23 methocarbamoL [Robaxin] 1,000 mg PO QID PRN 05/21/23 05/21/23 polyethylene glycoL 3350 [Miralax] 17 gm PO BID PRN 05/21/23 05/21/23 rOPINIRole HCL [Requip] 4 mg PO TID 05/21/23 05/21/23 Allergies Allergy/AdvReac Type Severity Reaction Status Date / Time No Known Allergies Allergy Verified 05/21/23 14:40 Review of Systems ROS Statement: Those systems with pertinent positive or pertinent negative responses have been documented in the HPI. ROS Other: All systems not noted in ROS Statement are negative. Past Medical History Past Medical History: Hyperlipidemia, Hypertension Additional Past Medical History / Comment(s): parkinson's, chronic lower back, BPH, Cellulitis b/l LE (12/21/22), hypothyroidism History of Any Multi-Drug Resistant Organisms: MRSA Date of last positivie culture/infection: 08/17/20 MDRO Source:: MRSA KNEE Past Surgical History: Orthopedic Surgery Additional Past Surgical History / Comment(s): L leg, right great toe, Cervical decompression and fusion Past Anesthesia/Blood Transfusion Reactions: No Reported Reaction Past Psychological History: No Psychological Hx Reported Smoking Status: Former smoker Past Alcohol Use History: Occasional Past Drug Use History: Marijuana - Past Family History Father History Unknown: Yes Family Medical History: Cancer Additional Family Medical History / Comment(s): prostate CA General Exam Limitations: physical limitation General appearance: alert, in no apparent distress Head exam: Present: atraumatic, normocephalic Eye exam: Present: normal appearance, PERRL ENT exam: Present: normal exam Neck exam: Present: normal inspection Respiratory exam: Present: normal lung sounds bilaterally. Absent: respiratory distress Cardiovascular Exam: Present: regular rate, normal rhythm GI/Abdominal exam: Present: soft, other (Stage IV sacral decubitus ulcer) Neurological exam: Present: alert Skin exam: Present: warm, diaphoretic Course Vital Signs 05/21/23 11:25 Temperature 99.7 F H Pulse Rate 86 Respiratory 20 Rate Blood Pressure 126/76 O2 Sat by Pulse 95 Oximetry - Reevaluation(s) Reevaluation #1: 05/21/23 15:30 The primary care provided listed on the patient's paperwork from the custodial is Dr. Velázquez. Medical Decision Making - Medical Decision Making Was pt. sent in by a medical professional or institution (, MELINDA, SEO EXECUTIVE, urgent care, hospital, or custodial...) When possible be specific @Presented from custodial for evaluation of fever and large sacral decubitus ulcer. Did you speak to anyone other than the patient for history (EMS, parent, family, police, friend...)? What history was obtained from this source @ -No Did you review nursing and triage notes (agree or disagree)? Why? @ -I reviewed and agree with nursing and triage notes Were old charts reviewed (outside hosp., previous admission, EMS record, old EKG, old radiological studies, urgent care reports/EKG's, custodial records)? Report findings @ -No old charts were reviewed Differential Diagnosis (chest pain, altered mental status, abdominal pain women, abdominal pain men, vaginal bleeding, weakness, fever, dyspnea, syncope, headache, dizziness, GI bleed, back pain, seizure, CVA, palpatations, mental health, musculoskeletal)? @ -[Differential Fever: Pneumonia, viral URI, endocarditis, myocarditis, pericarditis, otitis, sinusitis, peritonsillar Abscess, retropharyngeal Abscess, epiglottitis, peritonitis, appendicitis, Jessica cystitis, diverticulitis, hepatitis, colitis, UTI, PID, TOA, pyelonephritis, prostatitis, epididymitis, meningitis, encephalitis, pulmonary embolism, CVA, thyroid storm, pancreatitis, adrenal crisis, cavernous sinus thrombosis, this is not meant to be an all-inclusive list. EKG interpreted by me (3pts min.). @ -As above X-rays interpreted by me (1pt min.). @ -None done CT interpreted by me (1pt min.). @ -None done U/S interpreted by me (1pt. min.). @ -None done What testing was considered but not performed or refused? (CT, X-rays, U/S, labs)? Why? @ -None What meds were considered but not given or refused? Why? @ -None Did you discuss the management of the patient with other professionals (professionals i.e. MELINDA Small, SEO EXECUTIVE, lab, RT, psych nurse, director of social media marketing, local government legislator, teacher, account officer, transplant case manager)? Give summary @ -[Dr. Lira, requests consult to Dr. Willis Was smoking cessation discussed for >3mins.? @ -No Was critical care preformed (if so, how long)? @ -No Were there social determinants of health that impacted care today? How? (Homelessness, low income, unemployed, alcoholism, drug addiction, transportation, low edu. Level, literacy, decrease access to med. care, prison, rehab)? @ -No Was there de-escalation of care discussed even if they declined (Discuss DNR or withdrawal of care, Hospice)? DNR status @ -No What co-morbidities impacted this encounter? (DM, HTN, Smoking, COPD, CAD, Cancer, CVA, ARF, Chemo, Hep., AIDS, mental health diagnosis, sleep apnea, morbid obesity)? @ -Parkinson's disease. Was patient admitted / discharged? Hospital course, mention meds given and route, prescriptions, significant lab abnormalities, going to OR and other pertinent info. @ -Patient admitted for stage IV decubitus ulcer, fever. Started on antibiotics. Normal white blood cell count, normal lactic. Blood cultures pending. Undiagnosed new problem with uncertain prognosis? @ -No Drug Therapy requiring intensive monitoring for toxicity (Heparin, Nitro, Insulin, Cardizem)? @ -No Were any procedures done? @ -No Diagnosis/symptom? @Fever, stage IV decubitus ulcer Acute, or Chronic, or Acute on Chronic? @ -Acute Uncomplicated (without systemic symptoms) or Complicated (systemic symptoms)? @Complicated Side effects of treatment? @ -No Exacerbation, Progression, or Severe Exacerbation? @ -No Poses a threat to life or bodily function? How? (Chest pain, USA, SC, pneumonia, PE, COPD, DKA, ARF, appy, cholecystitis, CVA, Diverticulitis, Homicidal, Suicidal, threat to staff... and all critical care pts) @ -[Yes, sepsis - Lab Data Result diagrams: 05/21/23 13:07 05/21/23 13:07 Lab Results 05/21/23 05/21/23 05/21/23 Range/Units 13:07 13:07 13:07 WBC 10.3 (3.8-10.6) k/uL RBC 4.38 (4.30-5.90) m/uL Hgb 12.2 L (13.0-17.5) gm/dL Hct 38.0 L (39.0-53.0) % MCV 86.8 (80.0-100.0) fL MCH 27.9 (25.0-35.0) pg MCHC 32.2 (31.0-37.0) g/dL RDW 17.8 H (11.5-15.5) % Plt Count 320 (150-450) k/uL MPV 8.1 Neutrophils % 77 % Lymphocytes % 14 % Monocytes % 6 % Eosinophils % 2 % Basophils % 0 % Neutrophils # 7.9 H (1.3-7.7) k/uL Lymphocytes # 1.4 (1.0-4.8) k/uL Monocytes # 0.6 (0-1.0) k/uL Eosinophils # 0.2 (0-0.7) k/uL Basophils # 0.0 (0-0.2) k/uL Hypochromasia Slight Anisocytosis Slight PT 11.3 (10.0-12.5) sec INR 1.0 (<1.2) APTT 28.5 (22.0-30.0) sec Sodium 139 (137-145) mmol/L Potassium 4.3 (3.5-5.1) mmol/L Chloride 105 (98-107) mmol/L Carbon Dioxide 26 (22-30) mmol/L Anion Gap 8 mmol/L BUN 18 (9-20) mg/dL Creatinine 0.41 L (0.66-1.25) mg/dL Est GFR (CKD-EPI)AfAm >90 (>60 ml/min/1.73 sqM) Est GFR (CKD-EPI)NonAf >90 (>60 ml/min/1.73 sqM) Glucose 99 (74-99) mg/dL Plasma Lactic Acid [place] (0.7-2.0) mmol/L Calcium 9.2 (8.4-10.2) mg/dL Total Bilirubin 0.7 (0.2-1.3) mg/dL AST 46 (17-59) U/L ALT 23 (4-49) U/L Alkaline Phosphatase 141 H (38-126) U/L Total Protein 6.4 (6.3-8.2) g/dL Albumin 3.2 L (3.5-5.0) g/dL Influenza Type A (PCR) (Not Detectd) Influenza Type B (PCR) (Not Detectd) RSV (PCR) (Not Detectd) SARS-CoV-2 (PCR) (Not Detectd) 05/21/23 05/21/23 Range/Units 13:07 13:14 WBC (3.8-10.6) k/uL RBC (4.30-5.90) m/uL Hgb (13.0-17.5) gm/dL Hct (39.0-53.0) % MCV (80.0-100.0) fL MCH (25.0-35.0) pg MCHC (31.0-37.0) g/dL RDW (11.5-15.5) % Plt Count (150-450) k/uL MPV Neutrophils % % Lymphocytes % % Monocytes % % Eosinophils % % Basophils % % Neutrophils # (1.3-7.7) k/uL Lymphocytes # (1.0-4.8) k/uL Monocytes # (0-1.0) k/uL Eosinophils # (0-0.7) k/uL Basophils # (0-0.2) k/uL Hypochromasia Anisocytosis PT (10.0-12.5) sec INR (<1.2) APTT (22.0-30.0) sec Sodium (137-145) mmol/L Potassium (3.5-5.1) mmol/L Chloride (98-107) mmol/L Carbon Dioxide (22-30) mmol/L Anion Gap mmol/L BUN (9-20) mg/dL Creatinine (0.66-1.25) mg/dL Est GFR (CKD-EPI)AfAm (>60 ml/min/1.73 sqM) Est GFR (CKD-EPI)NonAf (>60 ml/min/1.73 sqM) Glucose (74-99) mg/dL Plasma Lactic Acid [place] 1.1 (0.7-2.0) mmol/L Calcium (8.4-10.2) mg/dL Total Bilirubin (0.2-1.3) mg/dL AST (17-59) U/L ALT (4-49) U/L Alkaline Phosphatase (38-126) U/L Total Protein (6.3-8.2) g/dL Albumin (3.5-5.0) g/dL Influenza Type A (PCR) Not Detected (Not Detectd) Influenza Type B (PCR) Not Detected (Not Detectd) RSV (PCR) Not Detected (Not Detectd) SARS-CoV-2 (PCR) Not Detected (Not Detectd) Disposition Clinical Impression: Sacral decubitus ulcer, stage IV, Fever Disposition: ADMITTED IP TO THIS HOSP Condition: Stable Is patient prescribed a controlled substance at d/c from ED?: No Time of Disposition: 14:05
[2023-05-21] MEDS: SODIUM CHLORIDE 0.9% 1,000 ML IV SCH (12:52)
[2023-05-21] MEDS: VANCOMYCIN 1,500 MG in SODIUM CHLORIDE 0.9% 500 ML 500 ML IVPB ONE (12:52)
[2023-05-21] MEDS: SODIUM CHLORIDE 0.9% 500 ML 500 ML IV ONE (12:53)
[2023-05-21 13:19] LABS: Anisocytosis Slight; Basophils % (A) 0 %; Eosinophils # (A) 0.2 k/uL (0-0.7); Eosinophils % (A) 2 %; HGB 12.2 gm/dL (13.0-17.5); Hypochromasia Slight; Lymphocytes # (A) 1.4 k/uL (1.0-4.8); Lymphocytes % (A) 14 %; MCH 27.9 pg (25.0-35.0); MCHC 32.2 g/dL (31.0-37.0); MCV 86.8 fL (80.0-100.0); Mean Platelet Volume 8.1; Monocytes # (A) 0.6 k/uL (0-1.0); Monocytes % (A) 6 %; Neutrophils # (A) 7.9 k/uL (1.3-7.7); Neutrophils % (A) 77 %; Platelet Count 320 k/uL (150-450); RBC 4.38 m/uL (4.30-5.90); RDW 17.8 % (11.5-15.5); WBC 10.3 k/uL (3.8-10.6)
[2023-05-21 13:31] LABS: ALT 23 U/L (4-49); AST 46 U/L (17-59); African American GFR (CKD) >90 (>60 ml/min/1.73 sqM); Albumin 3.2 g/dL (3.5-5.0); Alkaline Phosphatase 141 U/L (38-126); Anion Gap 8 mmol/L; Blood Urea Nitrogen 18 mg/dL (9-20); Calcium 9.2 mg/dL (8.4-10.2); Carbon Dioxide 26 mmol/L (22-30); Chloride 105 mmol/L (98-107); Glucose 99 mg/dL (74-99); Non-African American GFR(CKD) >90 (>60 ml/min/1.73 sqM); Potassium 4.3 mmol/L (3.5-5.1); Sodium 139 mmol/L (137-145); Total Bilirubin 0.7 mg/dL (0.2-1.3); Total Protein 6.4 g/dL (6.3-8.2)
[2023-05-21 13:34] LABS: Partial Thromboplastin Time 28.5 sec (22.0-30.0); Prothrombin Time 11.3 sec (10.0-12.5)
[2023-05-21] MEDS ORDERED: NALOXONE 0.4 MG/ML 1 ML VIAL IV PRN (14:02)
[2023-05-21 17:05] LABS: Appearance,Urine Clear (Clear); Bilirubin,Urine Negative (Negative); Blood,Urine Negative (Negative); Color,Urine Yellow; Glucose,Urine (UA) Negative (Negative); Ketones,Urine Negative (Negative); Leukocyte Esterase,Urine Negative (Negative); Mucus,Urine Rare /hpf; Nitrite,Urine Negative (Negative); PH, Urine 7.5 (5.0-8.0); Protein,Urine 1+ (Negative); RBC,Urine 1 /hpf (0-5); Specific Gravity,Urine 1.023 (1.001-1.035); Squamous Epithelial Cell,Urine 4 /hpf (0-4); Urobilinogen,Urine <2.0 mg/dL (<2.0); WBC,Urine 3 /hpf (0-5)
[2023-05-21] MEDS ORDERED: ARTIFICIAL TEARS-HYPROMELLOSE DROPS 15 ML BTL BOTH EYES PRN (19:18)
[2023-05-21] MEDS ORDERED: clonazePAM 0.5 MG TAB PO PRN (19:18)
[2023-05-21] MEDS ORDERED: polyethylene glycoL 3350 17 GM POWD.PACK PO PRN (19:18)
[2023-05-21] MEDS ORDERED: NON FORMULARY DRUG (Prostat 30 ML) PO SCH (21:00)
[2023-05-21] MEDS: FAMOTIDINE 8 MG/ML ORAL.SUSP PO SCH (22:18)
[2023-05-21] MEDS: GABAPENTIN 300 MG CAP PO SCH (22:19)
[2023-05-21] MEDS: MELATONIN 3 MG TABLET PO SCH (22:19)
[2023-05-21] MEDS: ATORVASTATIN 20 MG TAB PO SCH (22:19)
[2023-05-21] MEDS: methocarbamoL 500 MG TAB PO SCH (22:19)
[2023-05-21] MEDS: HYDROcodone/APAP 5-325MG 1 EACH TAB PO PRN (22:19)
[2023-05-21] MEDS: SENNOSIDES-DOCUSATE SODIUM 1 EACH TAB PO SCH (22:19)
[2023-05-21] MEDS: rOPINIRole HCL 4 MG TABLET PO SCH (22:19)
[2023-05-21] MEDS: CARBIDOPA-LEVODOPA 25-250 MG 1 EACH TAB PO SCH (22:20)
[2023-05-21] MEDS: VANCOMYCIN 1,500 MG in SODIUM CHLORIDE 0.9% 500 ML 500 ML IVPB SCH (22:20)
[2023-05-22] MEDS: ACETAMINOPHEN TAB 325 MG TAB PO PRN (02:15)
[2023-05-22] MEDS: LEVOTHYROXINE 50 MCG TAB PO SCH (09:30)
[2023-05-22] MEDS: ENOXAPARIN 40 MG/0.4 ML SYRINGE SQ SCH (09:39)
[2023-05-22 10:59] LABS: Anisocytosis Slight; Basophils % (A) 0 %; Eosinophils # (A) 0.4 k/uL (0-0.7); Eosinophils % (A) 3 %; HCT 37.2 % (39.0-53.0); HGB 11.7 gm/dL (13.0-17.5); Hypochromasia Moderate; Lymphocytes # (A) 1.5 k/uL (1.0-4.8); Lymphocytes % (A) 15 %; MCH 28.1 pg (25.0-35.0); MCHC 31.6 g/dL (31.0-37.0); MCV 89.1 fL (80.0-100.0); Monocytes # (A) 0.7 k/uL (0-1.0); Monocytes % (A) 7 %; Neutrophils # (A) 7.7 k/uL (1.3-7.7); Neutrophils % (A) 74 %; Platelet Count 364 k/uL (150-450); RBC 4.18 m/uL (4.30-5.90); RDW 17.8 % (11.5-15.5); WBC 10.4 k/uL (3.8-10.6)
[2023-05-22 11:15] LABS: African American GFR (CKD) >90 (>60 ml/min/1.73 sqM); Anion Gap 5 mmol/L; Blood Urea Nitrogen 19 mg/dL (9-20); Carbon Dioxide 27 mmol/L (22-30); Chloride 109 mmol/L (98-107); Glucose 123 mg/dL (74-99); Non-African American GFR(CKD) >90 (>60 ml/min/1.73 sqM); Potassium 4.7 mmol/L (3.5-5.1); Sodium 141 mmol/L (137-145)
--- NOTE | 2023-05-22 11:24 | P.HPIM ---
History of Present Illness H&P Date: 05/22/23 Patient is a 68-year-old male alf resident with history of Parkinson's disease, prior cervical decompression and fusion, on tube feeds, hypertension, dyslipidemia, BPH, hypothyroidism presenting with fever and stage IV decubitus ulcer. Patient unable to see wound care. He is a poor historian. 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 Patient currently denies any chest pain, shortness of breath, abdominal pain, nausea, vomiting, urinary or bowel complaints. In the ED, temperature was 99.7, pulse 86, respiratory 20, blood pressure 126/76, saturating at 95% on room air. WBC 10.3, hemoglobin 12.2, sodium 139, creatinine 0.41, lactate 1.1, urinalysis unremarkable, respiratory viral panel n egative. Patient was started on IV vancomycin. Vascular surgery was consulted. Patient was initially admitted to different hospitalist, assumed care at 0800 on 05/22/2023. Pertinent positives and negatives as discussed in HPI, a complete review of systems was performed and all other systems are negative. Patient seen and examined at bedside. Vital signs reviewed General: nontoxic, no distress, appears at stated age Derm: warm, dry, large stage IV sacral decubitus ulcer with purulence Head: atraumatic, normocephalic, symmetric Eyes: EOMI, no lid lag, anicteric sclera, pupils equal round reactive to light ENT: Nose and ears atraumatic Neck: No thyromegaly, supple Mouth: no lip lesion, mucus membranes moist Cardiovascular: S1S2 reg, no murmur, no edema Lungs: clear to auscultation bilateral, no rhonchi, no rales, no wheeze, no accessory muscle use Abdominal: soft, nontender to palpation, no guarding, no appreciable organomegaly Ext: Resting tremor Neuro: CN II-XII grossly intact Psych: Alert, oriented, appropriate affect Assessment/Plan: Infected stage IV sacral decubitus ulcer -Vascular surgery consulted -ID consulted -Continue IV vancomycin, monitor for renal toxicity -Blood cultures pending, ESR, CRP ordered -He may need debridement -Also started on ceftriaxone 2 g IV every 24 hours Parkinson's disease -Continue home Sinemet 252 50 3 times daily, amantadine 200 twice daily, ropinirole 4 3 times daily Chronic pain -Continue gabapentin 300 3 times daily, oral [place] 5 every 6 hours as needed, monitor for sedation, Robaxin as needed as well as 1 g p.o. every 12 hours -Bowel regimen with senna and MiraLAX Dyslipidemia -Continue atorvastatin 20 GERD -Famotidine 20 twice daily Hypothyroidism -Levothyroxine 50 mcg The patient is admitted with an anticipated greater than 2 midnight stay as inpatient status for evaluation of infected sacral decubitus ulcer. Surrogate decision-maker: Guardian CODE STATUS: Full code DVT prophylaxis: Lovenox Anticipated discharge date: Pending clinical course Anticipated discharge place: Pending clinical course A total of 55 minutes was spent on the care of this complex patient more than 50% of the time was spent in counseling and care coordination. Past Medical History Past Medical History: Hyperlipidemia, Hypertension, Thyroid Disorder Additional Past Medical History / Comment(s): parkinson's, chronic lower back, BPH, Cellulitis b/l LE (12/21/22), hypothyroidism, Dysphagia History of Any Multi-Drug Resistant Organisms: MRSA Date of last positivie culture/infection: 08/17/20 MDRO Source:: MRSA KNEE Past Surgical History: Orthopedic Surgery Additional Past Surgical History / Comment(s): L leg, right great toe, Cervical decompression and fusion Past Anesthesia/Blood Transfusion Reactions: No Reported Reaction Past Psychological History: No Psychological Hx Reported Smoking Status: Former smoker Past Alcohol Use History: Unable to Obtain Past Drug Use History: Unable to Obtain - Past Family History Father History Unknown: Yes Family Medical History: Cancer Additional Family Medical History / Comment(s): prostate CA Medications and Allergies Home Medications Medication Instructions Recorded Confirmed Type Atorvastatin [Lipitor] 20 mg PO HS 05/28/20 05/21/23 History Levothyroxine Sodium [Synthroid] 50 mcg PO AC-BRKFST 05/28/20 05/21/23 History Carbidopa-Levodopa 25-250 mg 1 tab PO TID 01/17/23 05/21/23 History [Sinemet 25-250] Enoxaparin [Lovenox] 40 mg SQ DAILY 05/21/23 05/21/23 History Famotidine 20 mg PO BID 05/21/23 05/21/23 History Gabapentin [Neurontin] 300 mg PO TID 05/21/23 05/21/23 History HYDROcodone/APAP 5-325MG [[place] 1 tab PO Q6H PRN 05/21/23 05/21/23 History 5-325] Ipratropium-Albuterol Nebulize 3 ml INHALATION RT-Q6H PRN 05/21/23 05/21/23 History [Duoneb 0.5 mg-3 mg/3 ml Soln] Melatonin 6 mg PO HS 05/21/23 05/21/23 History Propylene Glycol/Peg 400/Pf 1 drop BOTH EYES Q2H PRN 05/21/23 05/21/23 History [Systane 0.3-0.4% Ophth Dropperette] Prostat 30 ml PO BID 05/21/23 05/21/23 History Sennosides/Docusate Sodium [Senna 1 tab PO BID 05/21/23 05/21/23 History Plus 8.6-50 mg Tablet] amantadine HCL 200 mg PO BID 05/21/23 05/21/23 History clonazePAM [Klonopin ODT] 0.25 mg PO HS PRN 05/21/23 05/21/23 History methocarbamoL [Robaxin] 1,000 mg PO Q12H 05/21/23 05/21/23 History methocarbamoL [Robaxin] 1,000 mg PO QID PRN 05/21/23 05/21/23 History polyethylene glycoL 3350 [Miralax] 17 gm PO BID PRN 05/21/23 05/21/23 History rOPINIRole HCL [Requip] 4 mg PO TID 05/21/23 05/21/23 History Allergies Allergy/AdvReac Type Severity Reaction Status Date / Time No Known Allergies Allergy Verified 05/21/23 14:40 Physical Exam Vitals: Vital Signs Temp Pulse Pulse Resp BP BP Pulse Ox 05/22/23 02:00 97.7 F 79 20 145/71 98 05/21/23 19:43 98.5 F 85 18 122/78 98 05/21/23 17:11 98.4 F 74 18 143/74 96 05/21/23 11:25 99.7 F H 86 20 126/76 95 Intake and Output 05/21/23 05/22/23 05/22/23 22:59 06:59 14:59 Intake Total 100 Balance 100 Intake: Intake, IV Titration 100 Amount Sodium Chloride 0.9% 1, 100 000 ml @ 75 mls/hr IV . [id number] [facility] Rx#:[id number] Other: Voiding Method Diaper Diaper Incontinent Incontinent External Catheter External Catheter Weight 81.647 kg Results CBC & Chem 7: 05/22/23 10:27 05/21/23 13:07 Labs: Abnormal Lab Results - Last 24 Hours (Table) 05/21/23 05/21/23 05/21/23 Range/Units 13:07 13:07 16:31 Hgb 12.2 L (13.0-17.5) gm/dL Hct 38.0 L (39.0-53.0) % RDW 17.8 H (11.5-15.5) % Neutrophils # 7.9 H (1.3-7.7) k/uL Creatinine 0.41 L (0.66-1.25) mg/dL Alkaline Phosphatase 141 H (38-126) U/L Albumin 3.2 L (3.5-5.0) g/dL Urine Protein 1+ H (Negative) Urine Mucus Rare H (None) /hpf Thrombosis Risk Factor Assmnt - Choose All That Apply Any of the Below Risk Factors Present?: Yes Each Factor Represents 1 point: Medical pt on bed rest Other Risk Factors: Yes Each Risk Factor Represents 2 Points: Age 61-74 years, Patient confined to bed Other congenital or acquired thrombophilia - If yes, enter type in comment: No Thrombosis Risk Factor Assessment Total Risk Factor Score: 5 Thrombosis Risk Factor Assessment Level: High Risk
[2023-05-22] MEDS: HYDROcodone/APAP 5-325MG 1 EACH TAB PO SCH (11:34)
[2023-05-22] MEDS: FAMOTIDINE 20 MG TAB PO SCH (12:28)
[2023-05-22] MEDS: IPRATROPIUM-ALBUTEROL 3 ML NEB INHALATION PRN (15:09)
[2023-05-22 19:49] LABS: Erythrocyte Sedimentation Rate 57 mm/Hr (0-20)
--- NOTE | 2023-05-22 22:36 | P.CONS ---
History of Present Illness - Reason for Consult Consult date: 05/22/23 Stage IV sacral pressure ulcer Requesting physician: Jh Robins - Chief Complaint Fever and worsening sacral pressure ulcer x days - History of Present Illness Patient is a 68-year-old male with a past medical history of hypertension hyperlipidemia Parkinson disease in this patient who is bedbound and a half-way resident patient did have a stage IV sacral pressure ulcer started very clear for how long patient did have this pressure ulcer patient has been sent to the ER for evaluation of fever it is not very clear when the fever started as patient not a very good historian on presentation to the ER the patient did have temperature of 99.7 degrees for night patient was not tachycardic hypotensive or hypoxic patient did have white count of 10.3 creatinine 0.41 urine has been negative influenza RSV COVID testing was negative blood cultures obtained which are currently pending no chest x-ray was done patient was started on Rocephin and vancomycin infectious disease was consulted for further management of antibiotic therapy patient himself is not a very good historian so most information has been extracted from review of the chart and talking to nursing staff has been complaining of some discomfort to the sacral wound area however unable to quantify it any further no clear history of any nausea vomiting or diarrhea and no urinary symptoms Review of Systems Positive points has been mentioned in HPI complete review could not be obtained because of his underlying mental status Past Medical History Past Medical History: Hyperlipidemia, Hypertension, Thyroid Disorder Additional Past Medical History / Comment(s): parkinson's, chronic lower back, BPH, Cellulitis b/l LE (12/21/22), hypothyroidism, Dysphagia History of Any Multi-Drug Resistant Organisms: MRSA Year Discovered:: 08/17/20 MDRO Source:: MRSA KNEE Past Surgical History: Orthopedic Surgery Additional Past Surgical History / Comment(s): L leg, right great toe, Cervical decompression and fusion Past Anesthesia/Blood Transfusion Reactions: No Reported Reaction Past Psychological History: No Psychological Hx Reported Smoking Status: Former smoker Past Alcohol Use History: Unable to Obtain Past Drug Use History: Unable to Obtain - Past Family History Father History Unknown: Yes Family Medical History: Cancer Additional Family Medical History / Comment(s): prostate CA Medications and Allergies Home Medications Medication Instructions Recorded Confirmed Type Carbidopa-Levodopa 25-250 mg 1 tab PO TID 01/17/23 05/21/23 History [Sinemet 25-250 mg] Famotidine 20 mg PO BID 05/21/23 05/21/23 History Ipratropium-Albuterol Nebulize 3 ml INHALATION RT-Q6H PRN 05/21/23 05/21/23 History [Duoneb 0.5 mg-3 mg/3 ml Soln] Melatonin 6 mg PO HS 05/21/23 05/21/23 History Propylene Glycol/Peg 400/Pf 1 drop BOTH EYES Q2H PRN 05/21/23 05/21/23 History [Systane 0.3-0.4% Ophth Dropperette] Sennosides/Docusate Sodium [Senna 1 tab PO BID 05/21/23 05/21/23 History Plus 8.6-50 mg Tablet] amantadine HCL 200 mg PO BID 05/21/23 05/21/23 History methocarbamoL [Robaxin] 1,000 mg PO Q12H 05/21/23 05/21/23 History methocarbamoL [Robaxin] 1,000 mg PO QID PRN 05/21/23 05/21/23 History polyethylene glycoL 3350 [Miralax] 17 gm PO BID PRN 05/21/23 05/21/23 History rOPINIRole HCL [Requip] 4 mg PO TID 05/21/23 05/21/23 History Gabapentin [Neurontin] 300 mg PO TID #1 cap 05/25/23 Rx HYDROcodone/APAP 5-325MG [[place] 1 tab PO Q6H PRN #1 tab 05/25/23 Rx 5-325] clonazePAM [Klonopin ODT] 0.25 mg PO HS PRN #1 tab 05/25/23 Rx Allergies Allergy/AdvReac Type Severity Reaction Status Date / Time No Known Allergies Allergy Verified 05/21/23 14:40 Physical Exam Vitals: Vital Signs Temp Pulse Pulse Resp BP BP Pulse Ox 05/22/23 02:00 97.7 F 79 20 145/71 98 05/21/23 19:43 98.5 F 85 18 122/78 98 05/21/23 17:11 98.4 F 74 18 143/74 96 05/21/23 11:25 99.7 F H 86 20 126/76 95 Intake and Output 05/21/23 05/22/23 05/22/23 22:59 06:59 14:59 Intake Total 100 Balance 100 Intake: Intake, IV Titration 100 Amount Sodium Chloride 0.9% 1, 100 000 ml @ 75 mls/hr IV . [id number] [facility] Rx#:[id number] Other: Voiding Method Diaper Diaper Incontinent Incontinent External Catheter External Catheter Weight 81.647 kg GENERAL DESCRIPTION: Elderly male lying in bed, no distress. No tachypnea or accessory muscle of respiration use. HEENT: Shows Pallor , no scleral icterus. Oral mucous membrane is dry. No pharyngeal erythema or thrush NECK: Trachea central, no thyromegaly. LUNGS: Unlabored breathing. Coarse breath sounds bilaterally HEART: S1, S2, regular rate and rhythm. No loud murmur ABDOMEN: Soft, no tenderness , EXTREMITIES: No edema of feet. SKIN: Did have a stage IV sacral pressure ulcer with slough tissue surrounding redness and some drainage NEUROLOGICAL: The patient is awake, alert, but nonverbal orientation could not be determined Results CBC & Chem 7: 05/24/23 05:18 05/25/23 05:16 Labs: Abnormal Lab Results - Last 24 Hours (Table) 05/21/23 05/21/23 05/21/23 Range/Units 13:07 13:07 16:31 Hgb 12.2 L (13.0-17.5) gm/dL Hct 38.0 L (39.0-53.0) % RDW 17.8 H (11.5-15.5) % Neutrophils # 7.9 H (1.3-7.7) k/uL Creatinine 0.41 L (0.66-1.25) mg/dL Alkaline Phosphatase 141 H (38-126) U/L Albumin 3.2 L (3.5-5.0) g/dL Urine Protein 1+ H (Negative) Urine Mucus Rare H (None) /hpf Assessment and Plan (1) Fever Status: Acute Code(s): R50.9 - FEVER, UNSPECIFIED SNOMED Code(s): 395668277 (2) Infected pressure ulcer Status: Acute Code(s): L89.90 - PRESSURE ULCER OF UNSPECIFIED SITE, UNSPECIFIED STAGE; L08.9 - LOCAL INFECTION OF THE SKIN AND SUBCUTANEOUS TISSUE, UNSP SNOMED Code(s): 099431023 (3) Sacral decubitus ulcer, stage IV Status: Acute Code(s): L89.154 - PRESSURE ULCER OF SACRAL REGION, STAGE 4 SNOMED Code(s): 36847490241322 Plan: 1patient presented to hospital with fever and this patient who did have a stage IV sacral pressure ulcer with significant slough tissue and surrounding redness likely concerning for infected sacral pressure ulcer currently no other obvious focus of infection 2- await surgical debridement and deep cultures 3-continue with the vancomycin however we will switch Rocephin to Unasyn 4-check inflammatory markers and x-ray of the sacrum area We will follow on clinical condition and cultures to further adjust medication if needed Thank you for this consultation we will follow the patient along with you Dictation was produced using [employer] dictation software. please excuse any grammatical, word or spelling errors. Time with Patient: Greater than 30
[2023-05-22] MEDS: AMPICILLIN-SULBACTAM 3 GM in SODIUM CHLORIDE 0.9% 100 ML IVPB SCH (23:22)
[2023-05-23 04:46] LABS: ALT 25 U/L (4-49); AST 29 U/L (17-59); African American GFR (CKD) >90 (>60 ml/min/1.73 sqM); Albumin 2.6 g/dL (3.5-5.0); Albumin/Globulin Ratio 0.9; Alkaline Phosphatase 105 U/L (38-126); Anion Gap 4 mmol/L; Blood Urea Nitrogen 16 mg/dL (9-20); Calcium 8.5 mg/dL (8.4-10.2); Carbon Dioxide 28 mmol/L (22-30); Chloride 109 mmol/L (98-107); Globulin 2.8 g/dL; Glucose 111 mg/dL (74-99); Non-African American GFR(CKD) >90 (>60 ml/min/1.73 sqM); Potassium 4.2 mmol/L (3.5-5.1); Sodium 141 mmol/L (137-145); Total Bilirubin 0.4 mg/dL (0.2-1.3); Total Protein 5.4 g/dL (6.3-8.2)
[2023-05-23] MEDS: VANCOMYCIN TROUGH DUE 1 EACH MISC MISCELLANE ONE (05:27)
--- NOTE | 2023-05-23 08:06 | XR ---
EXAMINATION TYPE: XR sacrum coccyx DATE OF EXAM: 05/23/2023 COMPARISON: NONE HISTORY: Decubitus ulcers Three views are submitted. Sacrum is intact. Hypertrophic arthropathy of the SI joints. Calcificatio ns are most likely vascular. Bilateral hip arthropathy. Degenerative change of the lower lumbar spine . Lucency in the soft tissues likely related to the decubitus ulcers. There is sclerosis and hypertro phic change involving the distal margin the sacrococcygeal junction.. Coccyx appears to be intact. Visualized pelvic structures intact. IMPRESSION: 1. Soft tissue air likely related to the reported history of pressure ulcer. Recommend triple phase b one scan to assess for osteomyelitis of the sacrococcygeal junction.
[2023-05-23 08:51] LABS: Basophils # (A) 0.04 X 10*3/uL (0.00-0.10); Basophils % (A) 0.5 %; Eosinophils # (A) 0.32 X 10*3/uL (0.04-0.35); Eosinophils % (A) 3.7 %; HCT 33.2 % (39.6-50.0); HGB 9.8 g/dL (13.0-17.0); Lymphocytes # (A) 1.66 X 10*3/uL (0.90-5.00); Lymphocytes % (A) 19.4 %; MCHC 29.5 g/dL (32.0-37.0); MCV 91.5 FL (80.0-97.0); Mean Platelet Volume 10.3 FL (9.5-12.2); Monocytes % (A) 9.3 %; NRBC Per 100 WBC 0 X 10*3/uL (0.00-0.01); Neutrophils # (A) 5.67 X 10*3/uL (1.80-7.70); Neutrophils % (A) 66.3 %; Platelet Count 324 X 10*3/uL (140-440); RBC 3.63 X 10*6/uL (4.40-5.60); RDW 19.5 % (11.5-14.5); WBC 8.56 X 10*3/uL (4.50-10.00)
[2023-05-23 10:51] LABS: Erythrocyte Sedimentation Rate 37 mm/Hr (0-20)
--- NOTE | 2023-05-23 11:09 | P.PN ---
Subjective Progress Note Date: 05/23/23 Hospital Course: 68-year-old male shelter resident with history of Parkinson's disease, prior cervical decompression and fusion, on tube feeds, hypertension, dyslipidemia, BPH, hypothyroidism presenting with fever and stage IV decubitus ulcer. In the ED, temperature was 99.7, pulse 86, respiratory 20, blood pressure 126/76, saturating at 95% on room air. WBC 10.3, hemoglobin 12.2, sodium 139, creatinine 0.41, lactate 1.1, urinalysis unremarkable, respiratory viral panel negative. Patient was started on IV vancomycin. ID was also consulted. Patient was also started on IV Unasyn. Wound care and vascular surgery was consulted. Subjective: Patient seen and examined at bedside. No acute events overnight. Pertinent positives and negatives as discussed above, a complete review of syste ms was performed and all other systems are negative. Vitals Signs Reviewed. General: nontoxic, no distress, appears at stated age Derm: warm, dry, large stage IV sacral decubitus ulcer with purulence Head: atraumatic, normocephalic, symmetric Eyes: EOMI, no lid lag, anicteric sclera, pupils equal round reactive to light ENT: Nose and ears atraumatic Neck: No thyromegaly, supple Mouth: no lip lesion, mucus membranes moist Cardiovascular: S1S2 reg, no murmur, no edema Lungs: clear to auscultation bilateral, no rhonchi, no rales, no wheeze, no accessory muscle use Abdominal: soft, nontender to palpation, no guarding, no appreciable organomegaly Ext: Resting tremor Neuro: CN II-XII grossly intact Psych: Alert, oriented, appropriate affect Data Reviewed Today: Pertinent Labs: WBC 8.56, hemoglobin 9.8, platelet 324, ESR 37, CRP 9.10, creatinine 0.35 Imaging: Sacrum and coccyx x-ray shows soft tissue here, recommending triple phase bone scan to assess for osteomyelitis of the sacrococcygeal junction Assessment and Plan: Patient is severely ill, close monitoring, prognosis guarded Infected stage IV sacral decubitus ulcer Bedbound at baseline Debility Acute normocytic anemia, no active bleeding, possibly related to acute illness -Vascular surgery consulted -ID following, patient started on IV Unasyn 3 g every 6 hours -Continue IV vancomycin, monitor for renal toxicity -Elevated inflammatory markers. Blood cultures negative growth to date -He may need debridement or further imaging -Repeat CBC and BMP tomorrow Parkinson's disease -Continue home Sinemet 252 50 3 times daily, amantadine 200 twice daily, ropinirole 4 3 times daily Chronic pain -Continue gabapentin 300 3 times daily, oral [place] 5 every 6 hours as needed, monitor for sedation, Robaxin as needed as well as 1 g p.o. every 12 hours -Bowel regimen with senna and MiraLAX Dyslipidemia -Continue atorvastatin 20 GERD -Famotidine 20 twice daily Hypothyroidism -Levothyroxine 50 mcg DVT ppx: Lovenox Code status: DNR/DNI Anticipated discharge place: Pending clinical course Anticipated discharge time: Pending clinical course Objective - Vital Signs Vital signs: Vital Signs Temp 97.5 F L 05/23/23 07:15 Pulse 71 05/23/23 07:15 Resp 20 05/23/23 07:15 BP 136/76 05/23/23 07:15 Pulse Ox 100 05/23/23 07:15 FiO2 Intake & Output 05/22/23 05/23/23 05/23/23 18:59 06:59 18:59 Intake Total 1925 Output Total 500 Balance 1425 Weight 81.647 kg Intake: Intake, IV Titration 1925 Amount Sodium Chloride 0.9% 1, 375 000 ml @ 75 mls/hr IV . [id number] [facility] Rx#:[id number] Vancomycin 1,500 mg In 1500 Sodium Chloride 0.9% 500 ml 500 ml @ 167 mls/hr IVPB Q8H [facility] Rx#: [id number] cefTRIAXone 2 gm In 50 Sodium Chloride 0.9% 50 ml @ 100 mls/hr IVPB Q24HR [facility] Rx#:[id number] Output: Urine 500 Straight 500 Other: Voiding Method Diaper Diaper Diaper Incontinent Incontinent Incontinent External Catheter Indwelling Catheter Indwelling Catheter - Labs CBC & Chem 7: 05/23/23 04:20 05/23/23 04:20 Labs: Abnormal Lab Results - Last 24 Hours (Table) 05/22/23 05/22/23 05/23/23 Range/Units 10:27 10:27 04:20 RBC (4.40-5.60) X 10*6/uL Hgb (13.0-17.0) g/dL Hct (39.6-50.0) % MCHC (32.0-37.0) g/dL RDW (11.5-14.5) % Immature Gran # (0.00-0.04) X 10*3/uL ESR 57 H (0-20) mm/Hr Chloride 109 H 109 H (98-107) mmol/L Creatinine 0.37 L 0.35 L (0.66-1.25) mg/dL Glucose 123 H 111 H (74-99) mg/dL C-Reactive Protein 15.0 H 9.10 H (<1.0) mg/dL Total Protein 5.4 L (6.3-8.2) g/dL Albumin 2.6 L (3.5-5.0) g/dL 05/23/23 Range/Units 04:20 RBC 3.63 L (4.40-5.60) X 10*6/uL Hgb 9.8 L (13.0-17.0) g/dL Hct 33.2 L (39.6-50.0) % MCHC 29.5 L (32.0-37.0) g/dL RDW 19.5 H (11.5-14.5) % Immature Gran # 0.07 H (0.00-0.04) X 10*3/uL ESR 37 H (0-20) mm/Hr Chloride (98-107) mmol/L Creatinine (0.66-1.25) mg/dL Glucose (74-99) mg/dL C-Reactive Protein (<1.0) mg/dL Total Protein (6.3-8.2) g/dL Albumin (3.5-5.0) g/dL Microbiology - Last 24 Hours (Table) 05/21/23 12:30 Blood Culture - Preliminary Blood 05/21/23 12:45 Blood Culture - Preliminary Blood
--- NOTE | 2023-05-23 14:18 | P.PN ---
Subjective Progress Note Date: 05/23/23 CHIEF COMPLAINT: Fever HISTORY OF PRESENT ILLNESS: This is a 68-year-old male with history of Parkinson's and is bedbound. He resides at a snf. He has a large stage IV decubitus ulcer. Patient presented to the ER because of fevers. Patient admitted to the hospital for concerns of possible infected sacral decubitus ulcer. He is on antibiotics. Surgical service has been consulted for debridement of sacral wound. PAST MEDICAL HISTORY: See list. PAST SURGICAL HISTORY: See list. MEDICATIONS: See list. ALLERGIES: See list. SOCIAL HISTORY: No illicit drug use. REVIEW OF SYSTEMS: CONSTITUTIONAL: Denies fever or chills. HEENT: Denies blurred vision, vision changes, or eye pain. Denies hemoptysis ENDOCRINE: Denies heat or cold intolerance. CARDIOVASCULAR: Denies chest pain or pressure. RESPIRATORY: No shortness of breath. GASTROINTESTINAL: Denies abdominal pain. Denies nausea or vomiting. NEURO: Denies history of seizures. PSYCH: No depression or suicidal ideation HEMATOLOGIC: Denies bleeding disorders. LYMPHATIC: The patient denies any lumps and bumps around the neck. GENITOURINARY: Denies any blood in urine or increased urinary frequency. MUSCULOSKELETAL: Denies myalgias. Denies joint swelling. Denies decreased range of motion beyond patients baseline. SKIN: Denies pruitis. Denies rash. PHYSICAL EXAM: VITAL SIGNS: Reviewed GENERAL: Well-developed in no acute distress. HEENT: No sclera icterus. Extraocular movements grossly intact. Moist buccal mucosa. Head is atraumatic, normocephalic. Hears conversational speech. No nasal drainage. NECK: Supple without lymphadenopathy. CHEST: Non-labored respirations and equal bilateral excursions. CARDIOVASCULAR: Palpable 2+ radial pulses. ABDOMEN: Soft. Nondistended. Nontender MUSCULOSKELETAL: No clubbing or cyanosis. NEUROLOGIC: No focal or lateralizing signs. Cranial nerves II through XII stephen ssly intact. PSYCH: Appropriate affect. Alert and oriented to person, place and time. SKIN: Large sacral decubitus wound with sloughing and areas of dark tissue LABORATORY DATA: WBC 8.56 Hgb 9.8 platelets 324 Sodium is 141 potassium 4.2 creatinine 0.35 IMAGING: X-ray of sacrum soft tissue air likely related to reported history of pressure ulcer. Recommend triple phase bone scan to assess for osteomyelitis is of the sacrococcygeal junction ASSESSMENT: 1. Stage IV large sacral decubitus ulcer 2. History of Parkinson's and bedbound 3. Anemia 4. Severe protein calorie malnutrition 5. Hyperlipidemia 6. Hypothyroidism 7. GERD 8. Chronic pain PLAN: -Patient scheduled for debridement of large sacral decubitus ulcer tomorrow with Dr. Hair -N.p.o. after midnight. Hold tube feedings after midnight -Hold a.m. dose of Lovenox -Antibiotics per ID service -Continue to offload Thank you for this consultation [facility] Specialist note has been reviewed by physician. Signing provider agrees with the documented findings, assessment, and plan of care. Objective - Vital Signs Vital signs: Vital Signs Temp 98.2 F 05/23/23 13:02 Pulse 76 05/23/23 13:02 Resp 17 05/23/23 13:02 BP 130/73 05/23/23 13:02 Pulse Ox 98 05/23/23 13:02 FiO2 Intake & Output 05/22/23 05/23/23 05/23/23 18:59 06:59 18:59 Intake Total 1925 Output Total 500 Balance 1425 Weight 81.647 kg Intake: Intake, IV Titration 1925 Amount Sodium Chloride 0.9% 1, 375 000 ml @ 75 mls/hr IV . [id number] [facility] Rx#:[id number] Vancomycin 1,500 mg In 1500 Sodium Chloride 0.9% 500 ml 500 ml @ 167 mls/hr IVPB Q8H [facility] Rx#: [id number] cefTRIAXone 2 gm In 50 Sodium Chloride 0.9% 50 ml @ 100 mls/hr IVPB Q24HR [facility] Rx#:[id number] Output: Urine 500 Straight 500 Other: Voiding Method Diaper Diaper Diaper Incontinent Incontinent Incontinent External Catheter Indwelling Catheter Indwelling Catheter - Labs CBC & Chem 7: 05/23/23 04:20 05/23/23 04:20 Labs: Abnormal Lab Results - Last 24 Hours (Table) 05/22/23 05/23/23 05/23/23 Range/Units 10:27 04:20 04:20 RBC 3.63 L (4.40-5.60) X 10*6/uL Hgb 9.8 L (13.0-17.0) g/dL Hct 33.2 L (39.6-50.0) % MCHC 29.5 L (32.0-37.0) g/dL RDW 19.5 H (11.5-14.5) % Immature Gran # 0.07 H (0.00-0.04) X 10*3/uL ESR 57 H 37 H (0-20) mm/Hr Chloride 109 H (98-107) mmol/L Creatinine 0.35 L (0.66-1.25) mg/dL Glucose 111 H (74-99) mg/dL C-Reactive Protein 9.10 H (0.00-0.80) mg/dL Total Protein 5.4 L (6.3-8.2) g/dL Albumin 2.6 L (3.5-5.0) g/dL Microbiology - Last 24 Hours (Table) 05/21/23 12:30 Blood Culture - Preliminary Blood 05/21/23 12:45 Blood Culture - Preliminary Blood
[2023-05-24 08:36] LABS: Basophils # (A) 0.06 X 10*3/uL (0.00-0.10); Basophils % (A) 0.8 %; Eosinophils # (A) 0.43 X 10*3/uL (0.04-0.35); Eosinophils % (A) 5.6 %; HCT 33.1 % (39.6-50.0); HGB 9.6 g/dL (13.0-17.0); Lymphocytes # (A) 1.87 X 10*3/uL (0.90-5.00); Lymphocytes % (A) 24.4 %; MCH 26.4 pg (27.0-32.0); MCV 90.9 FL (80.0-97.0); Monocytes # (A) 0.67 X 10*3/uL (0.20-1.00); Monocytes % (A) 8.7 %; NRBC Per 100 WBC 0 X 10*3/uL (0.00-0.01); Neutrophils # (A) 4.57 X 10*3/uL (1.80-7.70); Neutrophils % (A) 59.7 %; Platelet Count 334 X 10*3/uL (140-440); RBC 3.64 X 10*6/uL (4.40-5.60); RDW 19.4 % (11.5-14.5); WBC 7.66 X 10*3/uL (4.50-10.00)
[2023-05-24 08:43] LABS: Blood Urea Nitrogen 10.4 mg/dL (9.0-27.0); Calcium 8.6 mg/dL (8.7-10.3); Carbon Dioxide 27.6 mmol/L (21.6-31.8); Chloride 107 mmol/L (96-109); Glucose 89 mg/dL (70-110); Potassium 4.2 mmol/L (3.5-5.5); Sodium 142 mmol/L (135-145)
[2023-05-24] MEDS: MORPHINE SULFATE 4 MG/ML SYRINGE IVP PRN (08:55)
[2023-05-24] MEDS: IV FLUID CONTINUATION 1,000 ML IV ONE (10:19)
[2023-05-24] MEDS: DEXAMETHASONE SOD PHOSPHATE 4 MG/ML 1 ML VIAL IVP ONE (10:44)
[2023-05-24] MEDS ORDERED: PHENYLEPHRINE 10 MG/ML VIAL ONE (13:56)
[2023-05-24] MEDS ORDERED: PROPOFOL 10 MG/ML 20 ML VIAL IV ONE (13:56)
[2023-05-24] MEDS ORDERED: fentaNYL (PF) 50 MCG/ML 2 ML AMP ONE (13:56)
[2023-05-24] MEDS ORDERED: LIDOCAINE 1% INJ 10MG/ML (20 ML MDV) ONE (13:56)
[2023-05-24] MEDS ORDERED: ROCURONIUM 10 MG/ML (5 ML VIAL) IV ONE (13:56)
[2023-05-24] MEDS ORDERED: SUGAMMADEX SODIUM 200 MG/2 ML SDV IV ONE (13:56)
--- NOTE | 2023-05-24 14:27 | P.PN ---
Subjective Progress Note Date: 05/24/23 Hospital Course: 68-year-old male alf resident with history of Parkinson's disease, prior cervical decompression and fusion, on tube feeds, hypertension, dyslipidemia, BPH, hypothyroidism presenting with fever and stage IV decubitus ulcer. In the ED, temperature was 99.7, pulse 86, respiratory 20, blood pressure 126/76, saturating at 95% on room air. WBC 10.3, hemoglobin 12.2, sodium 139, creatinine 0.41, lactate 1.1, urinalysis unremarkable, respiratory viral panel negative. Patient was started on IV vancomycin. ID was also consulted. Patient was also started on IV Unasyn. general surgery, also consulted, pending I&D today Subjective: Patient seen and examined at bedside. No acute events overnight. Pertinent positives and negatives as discussed above, a complete review of s ystems was performed and all other systems are negative. Vitals Signs Reviewed. General: nontoxic, no distress, appears at stated age Derm: warm, dry, large stage IV sacral decubitus ulcer with purulence Head: atraumatic, normocephalic, symmetric Eyes: EOMI, no lid lag, anicteric sclera, pupils equal round reactive to light ENT: Nose and ears atraumatic Neck: No thyromegaly, supple Mouth: no lip lesion, mucus membranes moist Cardiovascular: S1S2 reg, no murmur, no edema Lungs: clear to auscultation bilateral, no rhonchi, no rales, no wheeze, no accessory muscle use Abdominal: soft, nontender to palpation, no guarding, no appreciable organomegaly Ext: Resting tremor Neuro: CN II-XII grossly intact Psych: Alert, oriented, appropriate affect Data Reviewed Today: Pertinent Labs: WBC 7.66, hemoglobin 9.6, potassium 4.2, creatinine 0.4 Imaging: No new imaging Assessment and Plan: Infected stage IV sacral decubitus ulcer Bedbound at baseline Debility Acute normocytic anemia, no active bleeding, possibly related to acute illness, stable -General surgery during I&D today -ID following, patient started on IV Unasyn 3 g every 6 hours -Continue IV vancomycin, monitor for renal toxicity -Elevated inflammatory markers. Blood cultures negative growth to date -Spoke with pace, guardian does not want any further interventions, would like to pursue comfort care measures and have patient return back to [facility] after his I&D. Parkinson's disease -Continue home Sinemet 252 50 3 times daily, amantadine 200 twice daily, ropinirole 4 3 times daily Chronic pain -Continue gabapentin 300 3 times daily, oral [place] 5 every 6 hours as needed, monitor for sedation, Robaxin as needed as well as 1 g p.o. every 12 hours -Bowel regimen with senna and MiraLAX Dyslipidemia -Continue atorvastatin 20 GERD -Famotidine 20 twice daily Hypothyroidism -Levothyroxine 50 mcg DVT ppx: Lovenox Code status: DNR/DNI Anticipated discharge place: Pending clinical course Anticipated discharge time: Pending clinical course Objective - Vital Signs Vital signs: Vital Signs Temp 98.2 F 05/24/23 10:20 Pulse 79 05/24/23 10:20 Resp 16 05/24/23 10:20 BP 193/78 05/24/23 10:20 Pulse Ox 96 05/24/23 10:20 FiO2 Intake & Output 05/23/23 05/24/23 05/24/23 18:59 06:59 18:59 Intake Total 100 Output Total 750 400 Balance -750 -300 Intake: IV 100 Output: Urine 750 400 Other: Voiding Method Indwelling Catheter Indwelling Catheter Indwelling Catheter - Labs CBC & Chem 7: 05/24/23 05:18 05/24/23 05:13 Labs: Abnormal Lab Results - Last 24 Hours (Table) 05/24/23 05/24/23 Range/Units 05:13 05:18 RBC 3.64 L (4.40-5.60) X 10*6/uL Hgb 9.6 L (13.0-17.0) g/dL Hct 33.1 L (39.6-50.0) % MCH 26.4 L (27.0-32.0) pg MCHC 29.0 L (32.0-37.0) g/dL RDW 19.4 H (11.5-14.5) % Immature Gran # 0.06 H (0.00-0.04) X 10*3/uL Eosinophils # 0.43 H (0.04-0.35) X 10*3/uL Creatinine 0.4 L (0.6-1.5) mg/dL BUN/Creatinine Ratio 26.00 H (12.00-20.00) Ratio Calcium 8.6 L (8.7-10.3) mg/dL Microbiology - Last 24 Hours (Table) 05/21/23 12:30 Blood Culture - Preliminary Blood 05/21/23 12:45 Blood Culture - Preliminary Blood
--- NOTE | 2023-05-24 14:44 | P.PN ---
Subjective Progress Note Date: 05/23/23 Principal diagnosis: Reason for follow up with infected sacral pressure ulcer Patient is a 68-year-old male with a past medical history of hypertension hyperlipidemia Parkinson disease in this patient who is bedbound and a jail resident patient did have a stage IV sacral pressure ulcer has been sent to the ER for evaluation of fever concerning for infected sacral pressure ulcer. On today's evaluation that is 05/23/2023, the patient is afebrile, patient is on 2 L nasal cannula oxygen, the patient not a very good historian for specifically denies any chest pain or cough or abdominal pain and no diarrhea has been reported patient did have white count of 8.56,Creatinine 0.35, blood cultures are pending Objective - Vital Signs Vital signs: Vital Signs Temp 97.5 F L 05/23/23 07:15 Pulse 71 05/23/23 07:15 Resp 20 05/23/23 07:15 BP 136/76 05/23/23 07:15 Pulse Ox 100 05/23/23 11:48 FiO2 Intake & Output 05/22/23 05/23/23 05/23/23 18:59 06:59 18:59 Intake Total 1925 Output Total 500 Balance 1425 Weight 81.647 kg Intake: Intake, IV Titration 1925 Amount Sodium Chloride 0.9% 1, 375 000 ml @ 75 mls/hr IV . [id number] JAZLYN Rx#:[id number] Vancomycin 1,500 mg In 1500 Sodium Chloride 0.9% 500 ml 500 ml @ 167 mls/hr IVPB Q8H JAZLYN Rx#: [id number] cefTRIAXone 2 gm In 50 Sodium Chloride 0.9% 50 ml @ 100 mls/hr IVPB Q24HR JAZLYN Rx#:[id number] Output: Urine 500 Straight 500 Other: Voiding Method Diaper Diaper Diaper Incontinent Incontinent Incontinent External Catheter Indwelling Catheter Indwelling Catheter - Exam GENERAL DESCRIPTION: An elderly male lying in bed in no distress RESPIRATORY SYSTEM: Unlabored breathing , decreased breath sounds at bases HEART: S1 S2 regular rate and rhythm , ABDOMEN: Soft , no tenderness EXTREMITIES: No edema feet - Labs CBC & Chem 7: 05/24/23 05:18 05/24/23 05:13 Labs: Abnormal Lab Results - Last 24 Hours (Table) 02/06/24 02/07/24 02/07/24 Range/Units 10:27 04:20 04:20 RBC 3.63 L (4.40-5.60) X 10*6/uL Hgb 9.8 L (13.0-17.0) g/dL Hct 33.2 L (39.6-50.0) % MCHC 29.5 L (32.0-37.0) g/dL RDW 19.5 H (11.5-14.5) % Immature Gran # 0.07 H (0.00-0.04) X 10*3/uL ESR 57 H 37 H (0-20) mm/Hr Chloride 109 H (98-107) mmol/L Creatinine 0.35 L (0.66-1.25) mg/dL Glucose 111 H (74-99) mg/dL C-Reactive Protein 9.10 H (0.00-0.80) mg/dL Total Protein 5.4 L (6.3-8.2) g/dL Albumin 2.6 L (3.5-5.0) g/dL Microbiology - Last 24 Hours (Table) 05/21/23 12:30 Blood Culture - Preliminary Blood 05/21/23 12:45 Blood Culture - Preliminary Blood Assessment and Plan (1) Infected pressure ulcer Current Visit: Yes Status: Acute Code(s): L89.90 - PRESSURE ULCER OF UNSPECIFIED SITE, UNSPECIFIED STAGE; L08.9 - LOCAL INFECTION OF THE SKIN AND SUBCUTANEOUS TISSUE, UNSP SNOMED Code(s): 826916180 (2) Sacral decubitus ulcer, stage IV Current Visit: Yes Status: Acute Code(s): L89.154 - PRESSURE ULCER OF SACRAL REGION, STAGE 4 SNOMED Code(s): 71100542473870 Plan: 1patient presented to hospital with fever and this patient who did have a stage IV sacral pressure ulcer with significant slough tissue and surrounding redness likely concerning for infected sacral pressure ulcer currently no other obvious focus of infection 2- await surgical debridement and deep cultures for which general surgery has been consulted 3-patient to continue with the vancomycin and Unasyn Dictation was produced using [employer] dictation software. please excuse any gram matical, word or spelling errors. Time with Patient: Less than 30
--- NOTE | 2023-05-24 14:45 | P.PN ---
Subjective Progress Note Date: 05/24/23 Principal diagnosis: Reason for follow up with infected sacral pressure ulcer Patient is a 68-year-old male with a past medical history of hypertension hyperlipidemia Parkinson disease in this patient who is bedbound and a jail resident patient did have a stage IV sacral pressure ulcer has been sent to the ER for evaluation of fever concerning for infected sacral pressure ulcer. On today's evaluation that is 05/24/2023, the patient remains to be afebrile, patient is currently breathing comfortably on 2 L nasal cannula oxygen, the patient denies chest pain and no significant cough, patient denies abdominal pain, no nausea no vomiting or any diarrhea has been reported. Patient white count is 7.66 creatinine 0.4, blood cultures pending Objective - Vital Signs Vital signs: Vital Signs Temp 98.2 F 05/24/23 10:20 Pulse 79 05/24/23 10:20 Resp 16 05/24/23 10:20 BP 193/78 05/24/23 10:20 Pulse Ox 96 05/24/23 10:20 FiO2 Intake & Output 05/23/23 05/24/23 05/24/23 18:59 06:59 18:59 Intake Total 100 Output Total 750 400 Balance -750 -300 Intake: IV 100 Output: Urine 750 400 Other: Voiding Method Indwelling Catheter Indwelling Catheter Indwelling Catheter - Exam GENERAL DESCRIPTION: An elderly male lying in bed in no distress RESPIRATORY SYSTEM: Unlabored breathing , decreased breath sounds at bases HEART: S1 S2 regular rate and rhythm , ABDOMEN: Soft , no tenderness EXTREMITIES: No edema feet - Labs CBC & Chem 7: 05/24/23 05:18 05/24/23 05:13 Labs: Abnormal Lab Results - Last 24 Hours (Table) 05/24/23 05/24/23 Range/Units 05:13 05:18 RBC 3.64 L (4.40-5.60) X 10*6/uL Hgb 9.6 L (13.0-17.0) g/dL Hct 33.1 L (39.6-50.0) % MCH 26.4 L (27.0-32.0) pg MCHC 29.0 L (32.0-37.0) g/dL RDW 19.4 H (11.5-14.5) % Immature Gran # 0.06 H (0.00-0.04) X 10*3/uL Eosinophils # 0.43 H (0.04-0.35) X 10*3/uL Creatinine 0.4 L (0.6-1.5) mg/dL BUN/Creatinine Ratio 26.00 H (12.00-20.00) Ratio Calcium 8.6 L (8.7-10.3) mg/dL Microbiology - Last 24 Hours (Table) 05/21/23 12:30 Blood Culture - Preliminary Blood 05/21/23 12:45 Blood Culture - Preliminary Blood Assessment and Plan (1) Infected pressure ulcer Current Visit: Yes Status: Acute Code(s): L89.90 - PRESSURE ULCER OF UNSPECIFIED SITE, UNSPECIFIED STAGE; L08.9 - LOCAL INFECTION OF THE SKIN AND SUBCUTANEOUS TISSUE, UNSP SNOMED Code(s): 483673407 (2) Sacral decubitus ulcer, stage IV Current Visit: Yes Status: Acute Code(s): L89.154 - PRESSURE ULCER OF SACRAL REGION, STAGE 4 SNOMED Code(s): 02840513889005 Plan: 1patient presented to hospital with fever and this patient who did have a stage IV sacral pressure ulcer with significant slough tissue and surrounding redness likely concerning for infected sacral pressure ulcer currently no other obvious focus of infection 2-patient is currently waiting for surgical debridement and deep cultures scheduled for this afternoon 3-patient to continue with the vancomycin and Unasyn, will adjust antibiotic further on the basis of culture Dictation was produced using [employer] dictation software. please excuse any grammatical, word or spelling errors. Time with Patient: Less than 30
[2023-05-24] MEDS: HYDROmorphone 0.5 MG/0.5 ML SYRINGE IVP ONE (15:51)
[2023-05-24] MEDS: methocarbamoL 500 MG TAB PO PRN (16:49)
--- NOTE | 2023-05-24 16:49 | P.OP ---
Date of Procedure: 05/24/23 Description of Procedure: SURGEON: JAMI STOLL MD ELECTRIC DETECTOR OPERATOR: NONE. PREOPERATIVE DIAGNOSES: 1. Unstageable sacrococcygeal ulcer. 2. Parkinson's dementia 3. Dysphagia 4. Hypertensive heart disease 5. Hyperlipidemia 6. Hypothyroidism 7. MRSA infection 8. Chronic debility 9. Chronic constipation 10. Chronic obstructive pulmonary disease 11. Gastroesophageal reflux disease 12. Neuropathy 13. Dysarthria 14. Chronic anemia POSTOPERATIVE DIAGNOSES: 1. Stage IV sacrococcygeal ulcer 15 x 10 x 3 cm with osteomyelitis 2. Parkinson's dementia 3. Dysphagia 4. Hypertensive heart disease 5. Hyperlipidemia 6. Hypothyroidism 7. MRSA infection 8. Chronic debility 9. Chronic constipation 10. Chronic obstructive pulmonary disease 11. Gastroesophageal reflux disease 12. Neuropathy 13. Dysarthria 14. Chronic anemia OPERATION: 1. Sharp excisional debridement with blade and scissor of 15 x 10 x 3 cm sacrococcygeal wound to muscle and bone. 2. Water pulse lavage 3 L normal saline debridement of sacrococcygeal wound 15 x 10 x 3 cm to muscle and bone. 3. Bone biopsy of coccyx, deep biopsy. 4. Application of wound VAC, negative therapy, 15 x 10 x 3 cm ANESTHESIA: General. ESTIMATED BLOOD LOSS: 100 mL. COMPLICATIONS: None. SPECIMENS: Bone biopsy including anaerobic and aerobic culture of the sacrococcygeal ulcer. FINDINGS: 1. An 15 x 10 x 3 cm sacrococcygeal ulcer with additional 4 cm undermining at 12:00 to 6:00 2. Coccyx bone exposed consistent with stage IV sacrococcygeal ulcer 3. Soft coccygeal bone, highly suspicious for osteomyelitis also sent. INDICATIONS: The patient is a 68-year-old gentleman presents with unstageable sacrococcygeal ulcer. Given the moderate soft tissue breakdown to muscle and bone, osteomyelitis could not be excluded. Patient had low-grade fever with moderate fibrinous exudate along pressure ulcer. Surgical debridement was requested. Informed consent was obtained from guardian. DESCRIPTION: Patient was brought to the operating room, initially placed supine. After general induction, the patient was repositioned in the prone position. The patient was also on schedule antibiotics. The buttocks and sacrococcygeal area were prepped and draped in a standard sterile fashion using Betadine including Ioban dressing. After a timeout protocol, attention was brought to the depth of the wound whereby moderate necrosis with brown to yellow tissue exudate and slough was found along the surface of the sacrococcygeal wound. The wound was measured to a depth of 2 cm with dimension of 15 centimeters length x 10 cm width including undermining along the superior aspects of at least 4 cm as well from 12:00 to 6:00. Using a sharp excisional debridement with a #10 blade, the tissue was excised to healthy bleeding tissue to the the muscle. At the coccyx, the bone was exposed. Bone biopsy was obtained using a rongeur. The tail of the coccyx bone was very soft, highly suspicious for clinical osteomyelitis. 3 L of water jet pulse lavage was performed along the wound for mechanically debridement. All yellow exudate was addressed. Again, the depth of the wound was confirmed by 15 cm x 10 cm in length and width and depth of at least 4 cm undermine along the superior aspect of the sacrococcygeal area. Wound VAC black sponge was placed, medium size. Adhesive Tegaderm was placed. Suction adapter was placed after cutting the Tegaderm. Negative suction -125 mmHg pressure was set without leak. Along the tubing, ABD was placed at the skin to prevent additional pressure ulcers. The patient was taken to the postanesthesia care unit in stable condition. Thank you for allow me to participate in the care of your patient.
[2023-05-25] MEDS: VANCOMYCIN 1,500 MG in SODIUM CHLORIDE 0.9% 500 ML 500 ML IVPB SCH (01:14)
[2023-05-25 05:54] LABS: African American GFR (CKD) >90 (>60 ml/min/1.73 sqM); Anion Gap 2 mmol/L; Blood Urea Nitrogen 15 mg/dL (9-20); Calcium 8.3 mg/dL (8.4-10.2); Carbon Dioxide 27 mmol/L (22-30); Chloride 111 mmol/L (98-107); Glucose 114 mg/dL (74-99); Non-African American GFR(CKD) >90 (>60 ml/min/1.73 sqM); Potassium 4.1 mmol/L (3.5-5.1); Sodium 140 mmol/L (137-145)
[2023-05-25] MEDS: VANCOMYCIN TROUGH DUE 1 EACH MISC MISCELLANE ONE (08:01)
[2023-05-25 09:31] VITALS: BP 120/60; PULSE 69; RESP 18; TEMP 97.9
--- NOTE | 2023-05-25 10:14 | P.CONS ---
History of Present Illness - Reason for Consult Consult date: 05/25/23 wound care - History of Present Illness This is a 68-year-old gentleman being seen on [address] with past medical history significant for Parkinson's, BPH, hyperlipidemia, hypertension, dysphagia. Patient is being seen for a stage IV pressure ulcer that was surgically debrided currently has a negative pressure wound VAC. Ulceration measures approximately 15 x 10 x 3 cm. Family has decided that they do not want aggressive treatment they are refusing the wound VAC and antibiotics at this time. Patient is being transferred into a palliative care setting. Review of systems: Unable to obtain due to patient's mental status Physical exam: General Appearance: Alert, cooperative, no distress, appears stated age. Skin: See HPI all other Skin color, texture, tugor normal, no rashes or lesions. Neurologic: Alert oriented x3 Assessment: 1. Stage IV pressure ulcer sacrum Plan: 1. Per the family negative pressure wound VAC and antibiotics declined. We will utilize a wet-to-dry dressing change daily. Patient is scheduled in the wound care center on May 28 at 1245. Thank you for the consultation any questions please contact the wound care center DNP note has been reviewed and discussed with Dr. Ochoa and the impression and plan of care has been directed as dictated. Past Medical History Past Medical History: Hyperlipidemia, Hypertension, Thyroid Disorder Additional Past Medical History / Comment(s): parkinson's, chronic lower back, BPH, Cellulitis b/l LE (12/21/22), hypothyroidism, Dysphagia History of Any Multi-Drug Resistant Organisms: MRSA Year Discovered:: 08/17/20 MDRO Source:: MRSA KNEE Past Surgical History: Orthopedic Surgery Additional Past Surgical History / Comment(s): L leg, right great toe, Cervical decompression and fusion Past Anesthesia/Blood Transfusion Reactions: No Reported Reaction Past Psychological History: No Psychological Hx Reported Smoking Status: Former smoker Past Alcohol Use History: Unable to Obtain Past Drug Use History: Unable to Obtain - Past Family History Father History Unknown: Yes Family Medical History: Cancer Additional Family Medical History / Comment(s): prostate CA Medications and Allergies Home Medications Medication Instructions Recorded Confirmed Type Atorvastatin [Lipitor] 20 mg PO HS 05/28/20 05/21/23 History Levothyroxine Sodium [Synthroid] 50 mcg PO AC-BRKFST 05/28/20 05/21/23 History Carbidopa-Levodopa 25-250 mg 1 tab PO TID 01/17/23 05/21/23 History [Sinemet 25-250] Enoxaparin [Lovenox] 40 mg SQ DAILY 05/21/23 05/21/23 History Famotidine 20 mg PO BID 05/21/23 05/21/23 History Gabapentin [Neurontin] 300 mg PO TID 05/21/23 05/21/23 History HYDROcodone/APAP 5-325MG [[place] 1 tab PO Q6H PRN 05/21/23 05/21/23 History 5-325] Ipratropium-Albuterol Nebulize 3 ml INHALATION RT-Q6H PRN 05/21/23 05/21/23 History [Duoneb 0.5 mg-3 mg/3 ml Soln] Melatonin 6 mg PO HS 05/21/23 05/21/23 History Propylene Glycol/Peg 400/Pf 1 drop BOTH EYES Q2H PRN 05/21/23 05/21/23 History [Systane 0.3-0.4% Ophth Dropperette] Prostat 30 ml PO BID 05/21/23 05/21/23 History Sennosides/Docusate Sodium [Senna 1 tab PO BID 05/21/23 05/21/23 History Plus 8.6-50 mg Tablet] amantadine HCL 200 mg PO BID 05/21/23 05/21/23 History clonazePAM [Klonopin ODT] 0.25 mg PO HS PRN 05/21/23 05/21/23 History methocarbamoL [Robaxin] 1,000 mg PO Q12H 05/21/23 05/21/23 History methocarbamoL [Robaxin] 1,000 mg PO QID PRN 05/21/23 05/21/23 History polyethylene glycoL 3350 [Miralax] 17 gm PO BID PRN 05/21/23 05/21/23 History rOPINIRole HCL [Requip] 4 mg PO TID 05/21/23 05/21/23 History Allergies Allergy/AdvReac Type Severity Reaction Status Date / Time No Known Allergies Allergy Verified 05/21/23 14:40 Physical Exam Vitals: Vital Signs Temp Pulse Pulse Resp BP BP Pulse Ox 05/25/23 08:15 97.9 F 69 18 120/60 95 05/25/23 02:00 98 F 80 16 158/75 98 05/24/23 19:45 98.2 F 84 24 137/72 05/24/23 19:42 98.1 F 85 16 173/79 96 05/24/23 17:37 87 151/57 97 05/24/23 17:21 86 132/72 95 05/24/23 17:07 87 155/65 95 05/24/23 16:40 98.0 F 87 16 152/79 94 L 05/24/23 16:12 90 16 171/82 97 05/24/23 15:57 88 16 158/82 100 05/24/23 15:42 93 14 156/95 97 05/24/23 15:27 94 12 139/88 94 L 05/24/23 10:20 98.2 F 79 16 193/78 96 FiO2 05/25/23 08:15 05/25/23 02:00 05/24/23 19:45 05/24/23 19:42 05/24/23 17:37 05/24/23 17:21 05/24/23 17:07 05/24/23 16:40 05/24/23 16:12 05/24/23 15:57 05/24/23 15:42 05/24/23 15:27 3 05/24/23 10:20 Intake and Output 05/24/23 05/25/23 05/25/23 22:59 06:59 14:59 Intake Total 650 Output Total 750 Balance -100 Intake: IV 650 Output: Urine 650 Estimated Blood Loss 100 Other: Voiding Method Indwelling Catheter Weight 86 kg Results CBC & Chem 7: 05/24/23 05:18 05/25/23 05:16 Labs: Abnormal Lab Results - Last 24 Hours (Table) 05/25/23 Range/Units 05:16 Chloride 111 H (98-107) mmol/L Creatinine 0.35 L (0.66-1.25) mg/dL Glucose 114 H (74-99) mg/dL Calcium 8.3 L (8.4-10.2) mg/dL Microbiology - Last 24 Hours (Table) 05/21/23 12:30 Blood Culture - Preliminary Blood 05/21/23 12:45 Blood Culture - Preliminary Blood Assessment and Plan (1) Sacral decubitus ulcer, stage IV Current Visit: Yes Status: Acute Code(s): L89.154 - PRESSURE ULCER OF SACRAL REGION, STAGE 4 SNOMED Code(s): 25252784186246
--- NOTE | 2023-05-25 10:50 | P.DS ---
Providers Date of admission: 05/21/23 14:04 Expected date of discharge: 05/25/23 Attending physician: Jh Robins MD Consults: 05/22/23 09:18 Consult Physician Routine Consulting Provider: Kesha Bravo Consult Reason/Comments: stage 4 decub ulcer scral, fever at halfway Do you want consulting provider notified?: Yes 05/23/23 11:29 Consult Physician Routine Consulting Provider: Elenita Hair Consult Reason/Comments: Sacral decubitus ulcer Do you want consulting provider notified?: Yes Primary care physician: [facility] Hospital Course: Discharge Diagnosis: Infected stage IV sacral decubitus ulcer Bedbound at baseline Debility Acute normocytic anemia, no active bleeding, possibly related to acute illness Parkinson's disease Chronic pain Dyslipidemia GERD Hypothyroidism Hospital Course: 68-year-old male halfway resident with history of Parkinson's disease, prior cervical decompression and fusion, on tube feeds, hypertension, dyslipidemia, BPH, hypothyroidism presenting with fever and stage IV decubitus ulcer. In the ED, temperature was 99.7, pulse 86, respiratory 20, blood pressure 126/76, saturating at 95% on room air. WBC 10.3, hemoglobin 12.2, sodium 139, creatinine 0.41, lactate 1.1, urinalysis unremarkable, respiratory viral panel negative. Patient was started on IV vancomycin. ID was also consulted. Patient was also started on IV Unasyn. General surgery was consulted. Patient underwent debridement. Guardian now wants to pursue comfort care measures only. Patient being discharged back to nursing facility with comfort care measures. Does not want any wound VAC or IV antibiotics. Will not be sending patient back to hospital. Patient seen and examined at bedside. Vital signs reviewed and stable. General: nontoxic, no distress, appears at stated age Derm: warm, dry, sacral dressing not observed, wound VAC in place Head: atraumatic, normocephalic, symmetric Eyes: EOMI, no lid lag, anicteric sclera, pupils equal round reactive to light ENT: Nose and ears atraumatic Neck: No thyromegaly, supple Mouth: no lip lesion, mucus membranes moist Cardiovascular: S1S2 reg, no murmur, no edema Lungs: clear to auscultation bilateral, no rhonchi, no rales, no wheeze, no accessory muscle use Abdominal: soft, nontender to palpation, no guarding, no appreciable organomegaly Ext: Resting tremor Neuro: CN II-XII grossly intact Psych: Alert, oriented, appropriate affect A total of 33 minutes of time were spent preparing this complex discharge summary. Patient was discharged on 05/25/23 at 1027. Patient Condition at Discharge: Stable Plan - Discharge Summary Discharge Rx Participant: No New Discharge Prescriptions: Continue Ipratropium-Albuterol Nebulize [Duoneb 0.5 mg-3 mg/3 ml Soln] 3 ml INHALATION RT-Q6H PRN PRN Reason: Shortness Of Breath Or Wheezing clonazePAM [Klonopin ODT] 0.25 mg PO HS PRN PRN Reason: Insomnia methocarbamoL [Robaxin] 1,000 mg PO Q12H Gabapentin [Neurontin] 300 mg PO TID Sennosides/Docusate Sodium [Senna Plus 8.6-50 mg Tablet] 1 tab PO BID amantadine HCL 200 mg PO BID rOPINIRole HCL [Requip] 4 mg PO TID Carbidopa-Levodopa 25-250 mg [Sinemet 25-250 mg] 1 tab PO TID polyethylene glycoL 3350 [Miralax] 17 gm PO BID PRN PRN Reason: No BM for 2 days methocarbamoL [Robaxin] 1,000 mg PO QID PRN PRN Reason: Muscle Pain HYDROcodone/APAP 5-325MG [[place] 5-325] 1 tab PO Q6H PRN PRN Reason: Pain Famotidine 20 mg PO BID Melatonin 6 mg PO HS Propylene Glycol/Peg 400/Pf [Systane 0.3-0.4% Ophth Dropperette] 1 drop BOTH EYES Q2H PRN PRN Reason: eye discomfort/redness Discontinued Levothyroxine Sodium [Synthroid] 50 mcg PO AC-BRKFST Atorvastatin [Lipitor] 20 mg PO HS Enoxaparin [Lovenox] 40 mg SQ DAILY Prostat 30 ml PO BID Discharge Medication List Carbidopa-Levodopa 25-250 mg [Sinemet 25-250 mg] 1 tab PO TID 01/17/23 [History] Famotidine 20 mg PO BID 05/21/23 [History] Gabapentin [Neurontin] 300 mg PO TID 05/21/23 [History] HYDROcodone/APAP 5-325MG [[place] 5-325] 1 tab PO Q6H PRN 05/21/23 [History] Ipratropium-Albuterol Nebulize [Duoneb 0.5 mg-3 mg/3 ml Soln] 3 ml INHALATION RT-Q6H PRN 05/21/23 [History] Melatonin 6 mg PO HS 05/21/23 [History] Propylene Glycol/Peg 400/Pf [Systane 0.3-0.4% Ophth Dropperette] 1 drop BOTH EYES Q2H PRN 05/21/23 [History] Sennosides/Docusate Sodium [Senna Plus 8.6-50 mg Tablet] 1 tab PO BID 05/21/23 [History] amantadine HCL 200 mg PO BID 05/21/23 [History] clonazePAM [Klonopin ODT] 0.25 mg PO HS PRN 05/21/23 [History] methocarbamoL [Robaxin] 1,000 mg PO Q12H 05/21/23 [History] methocarbamoL [Robaxin] 1,000 mg PO QID PRN 05/21/23 [History] polyethylene glycoL 3350 [Miralax] 17 gm PO BID PRN 05/21/23 [History] rOPINIRole HCL [Requip] 4 mg PO TID 05/21/23 [History] Follow up Appointment(s)/Referral(s): Jorge Luis Velázquez DO [Primary Care Provider] - 1-2 days [facility]charge [facility]
--- NOTE | 2023-05-25 13:12 | P.PN ---
Subjective Progress Note Date: 05/25/23 Principal diagnosis: Reason for follow up with infected sacral pressure ulcer Patient is a 68-year-old male with a past medical history of hypertension hyperlipidemia Parkinson disease in this patient who is bedbound and a retirement resident patient did have a stage IV sacral pressure ulcer has been sent to the ER for evaluation of fever concerning for infected sacral pressure ulcer. On today's evaluation that is 05/25/2023, the patient is afebrile, patient is on room air, the patient is awake but nonverbal unable to provide any history no vomiting diarrhea or any other changes reported. The patient had a white count of 7.6 as of yesterday creatinine 0.35 blood culture has been pending Objective - Vital Signs Vital signs: Vital Signs Temp 97.9 F 05/25/23 08:15 Pulse 69 05/25/23 08:15 Resp 18 05/25/23 08:15 BP 120/60 05/25/23 08:15 Pulse Ox 95 05/25/23 08:15 FiO2 3 05/24/23 15:27 Intake & Output 05/24/23 05/25/23 05/25/23 18:59 06:59 18:59 Intake Total 750 Output Total 850 300 Balance -100 -300 Weight 86 kg Intake: IV 750 Output: Urine 750 300 Estimated Blood Loss 100 Other: Voiding Method Indwelling Catheter Indwelling Catheter Indwelling Catheter - Exam GENERAL DESCRIPTION: An elderly male lying in bed in no distress RESPIRATORY SYSTEM: Unlabored breathing , decreased breath sounds at bases HEART: S1 S2 regular rate and rhythm , ABDOMEN: Soft , no tenderness EXTREMITIES: No edema feet - Labs CBC & Chem 7: 05/24/23 05:18 05/25/23 05:16 Labs: Abnormal Lab Results - Last 24 Hours (Table) 05/25/23 Range/Units 05:16 Chloride 111 H (98-107) mmol/L Creatinine 0.35 L (0.66-1.25) mg/dL Glucose 114 H (74-99) mg/dL Calcium 8.3 L (8.4-10.2) mg/dL Microbiology - Last 24 Hours (Table) 05/21/23 12:30 Blood Culture - Preliminary Blood 05/21/23 12:45 Blood Culture - Preliminary Blood Assessment and Plan (1) Infected pressure ulcer Current Visit: Yes Status: Acute Code(s): L89.90 - PRESSURE ULCER OF UNSP ECIFIED SITE, UNSPECIFIED STAGE; L08.9 - LOCAL INFECTION OF THE SKIN AND SUBCUTANEOUS TISSUE, UNSP SNOMED Code(s): 301520029 (2) Sacral decubitus ulcer, stage IV Current Visit: Yes Status: Acute Code(s): L89.154 - PRESSURE ULCER OF SACRAL REGION, STAGE 4 SNOMED Code(s): 87058053919720 Plan: 1patient presented to hospital with fever and this patient who did have a stage IV sacral pressure ulcer with significant slough tissue and surrounding redness likely concerning for infected sacral pressure ulcer currently no other obvious focus of infection 2-patient is s/p surgical debridement of his sacral wound that was completed on 05/24/2022 3-patient to continue with the vancomycin and Unasyn, however plan is for pos [facility] in that case antibiotics can be safely discontinued this was discussed with the admitting team Dictation was produced using [employer] dictation software. please excuse any grammatical, word or spelling errors. Time with Patient: Less than 30
[2023-05-25 13:36] VITALS: BMI 26.4
--- NOTE | 2023-05-25 14:22 | P.PN ---
Subjective Progress Note Date: 05/25/23 CHIEF COMPLAINT: Sacral decubitus ulcer HISTORY OF PRESENT ILLNESS: Patient is postop day #1 status post debridement of sacral decubitus ulcer with wound VAC in place. Family is planning on taking patient home with hospice. Family is declining to continue the wound VAC. PHYSICAL EXAM: VITAL SIGNS: Reviewed GENERAL: no acute distress. HEENT: No sclera icterus. Extraocular movements grossly intact. Moist buccal mucosa. Head is atraumatic, normocephalic. Hears conversational speech. No nasal dr ainage. NECK: Supple without lymphadenopathy. CHEST: Non-labored respirations and equal bilateral excursions. CARDIOVASCULAR: Palpable 2+ radial pulses. ABDOMEN: Soft. Nondistended. Nontender. MUSCULOSKELETAL: No clubbing or cyanosis. NEUROLOGIC: No focal or lateralizing signs. Cranial nerves II through XII grossly intact. SKIN: Well perfused. ASSESSMENT: 1. Stage IV sacrococcygeal ulcer 15 x 10 x 3 cm with osteomyelitis 2. Parkinson's dementia 3. Dysphagia 4. Hypertensive heart disease 5. Hyperlipidemia 6. Hypothyroidism 7. MRSA infection 8. Chronic debility 9. Chronic constipation 10. Chronic obstructive pulmonary disease 11. Gastroesophageal reflux disease 12. Neuropathy 13. Dysarthria 14. Chronic anemia PLAN: -Family declining to continue the wound VAC. They are planning discharge with hospice. -Continue local wound care -Recommend high-protein diet through tube feeds. Discussed with dietitian. Physician Test Pilot note has been reviewed by physician. Signing provider agrees with the documented findings, assessment, and plan of care. Objective - Vital Signs Vital signs: Vital Signs Temp 97.9 F 05/25/23 08:15 Pulse 69 05/25/23 08:15 Resp 18 05/25/23 08:15 BP 120/60 05/25/23 08:15 Pulse Ox 95 05/25/23 08:15 FiO2 3 05/24/23 15:27 Intake & Output 05/24/23 05/25/23 05/25/23 18:59 06:59 18:59 Intake Total 750 Output Total 850 300 Balance -100 -300 Weight 86 kg Intake: IV 750 Output: Urine 750 300 Estimated Blood Loss 100 Other: Voiding Method Indwelling Catheter Indwelling Catheter Indwelling Catheter - Labs CBC & Chem 7: 05/24/23 05:18 05/25/23 05:16 Labs: Abnormal Lab Results - Last 24 Hours (Table) 05/25/23 Range/Units 05:16 Chloride 111 H (98-107) mmol/L Creatinine 0.35 L (0.66-1.25) mg/dL Glucose 114 H (74-99) mg/dL Calcium 8.3 L (8.4-10.2) mg/dL Microbiology - Last 24 Hours (Table) 05/21/23 12:30 Blood Culture - Preliminary Blood 05/21/23 12:45 Blood Culture - Preliminary Blood
[2023-05-26] MEDS ORDERED: VANCOMYCIN TROUGH DUE 1 EACH MISC MISCELLANE ONE (08:00)
== END 2023-05-25 13:43 | disposition hospice, inpatient (51) | DRG 579 ==
LOC: EC 11:16 → 4SSUR 14:04 → 5NMEDONC 15:19
PROVIDERS: ADMIT Student in an Organized Health Care Education/Training Program; ATTEND Student in an Organized Health Care Education/Training Program
PROC: 0QBS0ZX Excision of Coccyx, Open Approach, Diagnostic (ICD-10-PCS; 2023-05-24)
PROC: 0QB10ZZ Excision of Sacrum, Open Approach (ICD-10-PCS; principal; 2023-05-24 07:30)
DX: L89.154 Pressure ulcer of sacral region, stage 4 (principal); E43 Unspecified severe protein-calorie malnutrition; M86.8X8 Other osteomyelitis, other site; F02.80 Dementia in other diseases classified elsewhere, unspecified severity, without behavioral disturbance, psychotic disturbance, mood disturbance, and anxiety; Z11.52 Encounter for screening for COVID-19; N40.0 Benign prostatic hyperplasia without lower urinary tract symptoms; Z74.01 Bed confinement status; K21.9 Gastro-esophageal reflux disease without esophagitis; E78.5 Hyperlipidemia, unspecified; Z68.26 Body mass index [BMI] 26.0-26.9, adult; G89.29 Other chronic pain; E03.9 Hypothyroidism, unspecified; Z79.890 Hormone replacement therapy; D64.9 Anemia, unspecified; G20.A1 Parkinson's disease without dyskinesia, without mention of fluctuations; R13.10 Dysphagia, unspecified; G62.9 Polyneuropathy, unspecified; H66.90 Otitis media, unspecified, unspecified ear; Z51.5 Encounter for palliative care; M54.50 Low back pain, unspecified; Z87.891 Personal history of nicotine dependence; Z79.899 Other long term (current) drug therapy
CPT/HCPCS: 36415; 72220; 80048; 80053; 80202; 81001; 83605; 85025; 85610; 85652; 85730; 86140; 87040; 87070; 87075; 87077; 87186; 87205; 87636; 88307; 88311; 94640; 94760; 96365; 96366; 96367; 99285

== ENCOUNTER 2023-06-10 20:09 | Observation (INO) | payer OTHER ==
[2023-06-10 20:55] LABS: Anisocytosis Slight; Basophils # (A) 0.1 k/uL (0-0.2); Basophils % (A) 1 %; Eosinophils # (A) 0.2 k/uL (0-0.7); Eosinophils % (A) 2 %; HCT 37.6 % (39.0-53.0); Hypochromasia Slight; Lymphocytes # (A) 1.7 k/uL (1.0-4.8); Lymphocytes % (A) 13 %; MCH 27.2 pg (25.0-35.0); MCHC 31.9 g/dL (31.0-37.0); MCV 85.2 fL (80.0-100.0); Mean Platelet Volume 8.4; Monocytes # (A) 0.8 k/uL (0-1.0); Monocytes % (A) 6 %; Neutrophils # (A) 10.3 k/uL (1.3-7.7); Neutrophils % (A) 78 %; Platelet Count 470 k/uL (150-450); RBC 4.41 m/uL (4.30-5.90); RDW 16.2 % (11.5-15.5); WBC 13.2 k/uL (3.8-10.6)
[2023-06-10 21:04] LABS: African American GFR (CKD) >90 (>60 ml/min/1.73 sqM); Anion Gap 6 mmol/L; Blood Urea Nitrogen 16 mg/dL (9-20); Calcium 9.3 mg/dL (8.4-10.2); Carbon Dioxide 30 mmol/L (22-30); Chloride 102 mmol/L (98-107); Glucose 94 mg/dL (74-99); Non-African American GFR(CKD) >90 (>60 ml/min/1.73 sqM); Potassium 4.6 mmol/L (3.5-5.1); Sodium 138 mmol/L (137-145)
--- NOTE | 2023-06-10 21:10 | ED ---
General Adult HPI - General Chief complaint: Recheck/Abnormal Lab/Rx Stated complaint: Peg Tube Malfunction Time Seen by Provider: 06/10/23 20:15 Source: EMS Mode of arrival: EMS Limitations: language barrier, altered mental status, physical limitation - History of Present Illness Initial comments: Dictation was produced using [employer] dictation software. please excuse any grammatical, word or spelling errors. Chief Complaint: 68-year-old Parkinson's patient presents to the ER for clogged PEG tube History of Present Illness: Patient 68-year-old male presents from a senior care for clogged PEG tube. Patient states that PEG tube was placed approxi mately 2 months ago. Per EMS patient also here for evaluation of hyperkalemia and leukocytosis. Patient has no complaints at the bedside. The ROS documented in this emergency department record has been reviewed and confirmed by me. Those systems with pertinent positive or negative responses have been documented in the HPI. All other systems are other negative and/or noncontributory. - Related Data Home Medications Medication Instructions Recorded Confirmed Carbidopa-Levodopa 25-250 mg 1 tab PO TID 01/17/23 05/21/23 [Sinemet 25-250 mg] Famotidine 20 mg PO BID 05/21/23 05/21/23 Ipratropium-Albuterol Nebulize 3 ml INHALATION RT-Q6H PRN 05/21/23 05/21/23 [Duoneb 0.5 mg-3 mg/3 ml Soln] Melatonin 6 mg PO HS 05/21/23 05/21/23 Propylene Glycol/Peg 400/Pf 1 drop BOTH EYES Q2H PRN 05/21/23 05/21/23 [Systane 0.3-0.4% Ophth Dropperette] Sennosides/Docusate Sodium [Senna 1 tab PO BID 05/21/23 05/21/23 Plus 8.6-50 mg Tablet] amantadine HCL 200 mg PO BID 05/21/23 05/21/23 methocarbamoL [Robaxin] 1,000 mg PO Q12H 05/21/23 05/21/23 methocarbamoL [Robaxin] 1,000 mg PO QID PRN 05/21/23 05/21/23 polyethylene glycoL 3350 [Miralax] 17 gm PO BID PRN 05/21/23 05/21/23 rOPINIRole HCL [Requip] 4 mg PO TID 05/21/23 05/21/23 Previous Rx's Medication Instructions Recorded Gabapentin [Neurontin] 300 mg PO TID #1 cap 05/25/23 HYDROcodone/APAP 5-325MG [Prospect 1 tab PO Q6H PRN #1 tab 05/25/23 5-325] clonazePAM [Klonopin ODT] 0.25 mg PO HS PRN #1 tab 05/25/23 Allergies Allergy/AdvReac Type Severity Reaction Status Date / Time No Known Allergies Allergy Verified 05/21/23 14:40 Review of Systems ROS Statement: Those systems with pertinent positive or pertinent negative responses have been documented in the HPI. ROS Other: All systems not noted in ROS Statement are negative. Past Medical History Past Medical History: Hyperlipidemia, Hypertension, Thyroid Disorder Additional Past Medical History / Comment(s): parkinson's, chronic lower back, BPH, Cellulitis b/l LE (12/21/22), hypothyroidism, Dysphagia History of Any Multi-Drug Resistant Organisms: MRSA Date of last positivie culture/infection: 08/17/20 MDRO Source:: MRSA KNEE Past Surgical History: Orthopedic Surgery Additional Past Surgical History / Comment(s): L leg, right great toe, Cervical decompression and fusion Past Anesthesia/Blood Transfusion Reactions: No Reported Reaction Past Psychological History: No Psychological Hx Reported Smoking Status: Former smoker Past Alcohol Use History: Unable to Obtain Past Drug Use History: Unable to Obtain - Past Family History Father History Unknown: Yes Family Medical History: Cancer Additional Family Medical History / Comment(s): prostate CA General Exam - General Exam Comments Initial Comments: PHYSICAL EXAM: General Impression: Alert and oriented x3, not in acute distress, diffuse tremors HEENT: Normocephalic atraumatic, extra-ocular movements intact, pupils equal and reactive to light bilaterally, mucous membranes moist. Cardiovascular: Heart regular rate and rhythm Chest: Able to complete full sentences, no retractions, no tachypnea Abdomen: abdomen soft, non-tender, non-distended, no organomegaly Musculoskeletal: Pulses present and equal in all extremities, no peripheral edema Motor: no focal deficits noted Neurological: CN II-XII grossly intact, no focal motor or sensory deficits noted Skin: Intact with no visualized rashes Psych: Normal affect and mood Limitations: language barrier, altered mental status, physical limitation Course Vital Signs 06/10/23 06/10/23 20:12 21:38 Temperature 97.8 F Pulse Rate 99 98 Respiratory 18 18 Rate Blood Pressure 152/83 160/87 O2 Sat by Pulse 97 97 Oximetry - Reevaluation(s) Reevaluation #1: 06/10/23 21:09 Attempt was made to exchange PEG tube. Suctioning of the balloon was performed however no fluid was removed. There did appear to be some debris suspicious for PEG feeding in the balloon port. Attempts to exchange PEG tube was un successful. Medical Decision Making - Medical Decision Making Was pt. sent in by a medical professional or institution (, [facility], [facility], urgent care, hospital, or senior care...) When possible be specific @ -No Did you speak to anyone other than the patient for history (EMS, parent, family, police, friend...)? What history was obtained from this source @ -EMS Did you review nursing and triage notes (agree or disagree)? Why? @ -I reviewed and agree with nursing and triage notes Were old charts reviewed (outside hosp., previous admission, EMS record, old EKG, old radiological studies, urgent care reports/EKG's, senior care records)? Report findings @ -No old charts were reviewed Differential Diagnosis (chest pain, altered mental status, abdominal pain women, abdominal pain men, vaginal bleeding, musculoskeletal, weakness, fever, dyspnea, syncope, headache, dizziness, GI bleed, back pain, seizure, CVA, palpatations, mental health)? @ -Not applicable EKG interpreted by me (3pts min.). @ -None done X-rays interpreted by me (1pt min.). @ -None done CT interpreted by me (1pt min.). @ -None done U/S interpreted by me (1pt. min.). @ -None done What testing was considered but not performed or refused? (CT, X-rays, U/S, labs)? Why? @ -None What meds were considered but not given or refused? Why? @ -None Did you discuss the management of the patient with other professionals (professionals i.e. , MEL[facility]DA, [facility] [employer], lab, RT, psych nurse, director social welfare, banana grader, teacher, hazard mitigation officer, employment evaluator/case manager)? Give summary @ -Case discussed with general surgery states that in order to change patient's PEG tube he will need it performed endoscopically. Recommended admission to medicine General surgery on consult for further treatment Was smoking cessation discussed for >3mins.? @ -No Was critical care preformed (if so, how long)? @ -No Were there social determinants of health that impacted care today? How? (Homelessness, low income, unemployed, alcoholism, drug addiction, transportation, low edu. Level, literacy, decrease access to med. care, snf, rehab)? @ -No Was there de-escalation of care discussed even if they declined (Discuss DNR or withdrawal of care, Hospice)? DNR status @ -No What co-morbidities impacted this encounter? (DM, HTN, Smoking, COPD, CAD, Cancer, CVA, ARF, Chemo, Hep., AIDS, mental health diagnosis, sleep apnea, morbid obesity)? @ -None Was patient admitted / discharged? Hospital course, mention meds given and route, prescriptions, significant lab abnormalities, going to OR and other pertinent info. @ -68-year-old male brought to the emergency department for PEG tube malfunction. Vital signs stable. Patient denies any complaints. Attempt was made to change the PEG tube however unable to deflate the balloon suspect that there is impacted food preventing deflation. General surgery will plan to take patient and perform PEG tube exchange endoscopically. Undiagnosed new problem with uncertain prognosis? @ -No Drug Therapy requiring intensive monitoring for toxicity (Heparin, Nitro, In sulin, Cardizem)? @ -No Were any procedures done? @ -No Diagnosis/symptom? Acute, or Chronic, or Acute on Chronic? Uncomplicated (without systemic symptoms) or Complicated (systemic symptoms)? @ -PEG tube malfunction. Side effects of treatment? @ -No Exacerbation, Progression, or Severe Exacerbation? @ -No Poses a threat to life or bodily function? How? (Chest pain, [place], [place], pneumonia, PE, COPD, DKA, ARF, appy, cholecystitis, CVA, Diverticulitis, Homicidal, Suicidal, threat to staff... and all critical care pts) @ -yes - Lab Data Result diagrams: 06/10/23 20:48 06/10/23 20:48 Lab Results 06/10/23 06/10/23 Range/Units 20:48 20:48 WBC 13.2 H (3.8-10.6) k/uL RBC 4.41 (4.30-5.90) m/uL Hgb 12.0 L (13.0-17.5) gm/dL Hct 37.6 L (39.0-53.0) % MCV 85.2 (80.0-100.0) fL MCH 27.2 (25.0-35.0) pg MCHC 31.9 (31.0-37.0) g/dL RDW 16.2 H (11.5-15.5) % Plt Count 470 H (150-450) k/uL MPV 8.4 Neutrophils % 78 % Lymphocytes % 13 % Monocytes % 6 % Eosinophils % 2 % Basophils % 1 % Neutrophils # 10.3 H (1.3-7.7) k/uL Lymphocytes # 1.7 (1.0-4.8) k/uL Monocytes # 0.8 (0-1.0) k/uL Eosinophils # 0.2 (0-0.7) k/uL Basophils # 0.1 (0-0.2) k/uL Hypochromasia Slight Anisocytosis Slight Sodium 138 (137-145) mmol/L Potassium 4.6 (3.5-5.1) mmol/L Chloride 102 (98-107) mmol/L Carbon Dioxide 30 (22-30) mmol/L Anion Gap 6 mmol/L BUN 16 (9-20) mg/dL Creatinine 0.40 L (0.66-1.25) mg/dL Est GFR (CKD-EPI)AfAm >90 (>60 ml/min/1.73 sqM) Est GFR (CKD-EPI)NonAf >90 (>60 ml/min/1.73 sqM) Glucose 94 (74-99) mg/dL Calcium 9.3 (8.4-10.2) mg/dL Disposition Clinical Impression: PEG tube malfunction Disposition: ADMITTED IP TO THIS HOSP Condition: Fair Referrals: Jorge Luis Velázquez DO [Primary Care Provider] - 1-2 days Decision Time: 21:55
[2023-06-10] MEDS ORDERED: NALOXONE 0.4 MG/ML 1 ML VIAL IV PRN (21:46)
[2023-06-10] MEDS: SODIUM CHLORIDE 0.9% 1,000 ML IV SCH (23:11)
[2023-06-11] MEDS ORDERED: polyethylene glycoL 3350 17 GM POWD.PACK PEG/G-TUBE PRN (11:41)
--- NOTE | 2023-06-11 13:43 | P.HPIM ---
History of Present Illness H&P Date: 06/11/23 Chief Complaint: PEG tube malfunction This is a 68-year-old patient, follows with Dr. Jorge Luis silvestre at the [facility]. Chronic stable medical conditions include hypertension, hyperlipidemia, hypothyroid, Parkinson's, BPH, chronic dysphagia. Chronic stage IV sacrococcygeal ulcer-debridement was carried on May [address] Almaguer.. He was sent in from the [facility] because his PEG tube was found to be clogged. This was placed about 2 months ago. Patient himself really cannot give any history. No fever reported. Some leukocytosis. Awake. Laying in bed. Just making some sounds. Review of systems: Could not be obtained as patient not really able to speak Social history: Former smoker. At [facility]. Physical examination: VITAL SIGNS: 98, 98, 20, 131/73, 95% room air GENERAL: BMI 23, laying in bed awake., Not really speaking EYES: Pupils equal. Conjunctiva lv l. HEENT: External appearance of nose and ears normal, oral cavity grossly normal. NECK: JVD not raised; masses not palpable. HEART: First and second heart sounds are normal; no edema. LUNGS: Respiratory rate normal; clear to auscultation. ABDOMEN: Soft, nontender, liver spleen not palpable, no masses palpable. PEG tube in place PSYCH: Only makes sounds does not really answer questions]l. MUSCULOSKELETAL:No Clubbing/cyanosis;muscles-grossly intact. Large sacral decubitus ulcer. See details in nursing chart NEUROLOGICAL: Cranial nerves grossly intact; no facial asymmetry, power and se nsation grossly intact. Tremors. Some rigidity. LYMPHATICS: No lymph nodes palpable in the axilla and neck INVESTIGATIONS, reviewed in the clinical context: June 10: White count 13.2 hemoglobin 12 platelets 470 sodium 138 potassium 4.6 BUN 16 creatinine 0.4 EKG tracing personally reviewed by me-sinus rhythm. Rate 100. Nonspecific ST/T wave changes. Assessment plan: -Nonfunctioning PEG tube that was placed about 2 [address] General surgery Dr. Almaguer was consulted. Will try to infuse Coke product through the PEG tube. See if that helps to open it up. -Chronic dysphagia. Patient is NPO. Will give medications through the NG tube pending PEG tube being corrected order placed -Parkinson's disorder, some worsening with patient not getting his medications Requip, amantadine, Sinemet -Chronic neuropathy Neurontin -Chronic pain syndrome Patient takes Roxanol, Neurontin, Clyman -Large chronic stage IV sacral decubitus ulcer. On May 24 underwent debridement by surgery/Dr. Almaguer. Consult her. -Chronic insomnia Melatonin -Restless leg syndrome Requip -Chronic medical debility -DNR Currently no family members at bedside. Will attempt a Coke product through the PEG tube. Surgery consulted. Otherwise discussed with the nurse manager float to start NG tube with medications. Past Medical History Past Medical History: Hyperlipidemia, Hypertension, Thyroid Disorder Additional Past Medical History / Comment(s): parkinson's, chronic lower back, BPH, Cellulitis b/l LE (12/21/22), hypothyroidism, Dysphagia History of Any Multi-Drug Resistant Organisms: MRSA Date of last positivie culture/infection: 08/17/20 MDRO Source:: MRSA KNEE Past Surgical History: Orthopedic Surgery Additional Past Surgical History / Comment(s): L leg, right great toe, Cervical decompression and fusion Past Anesthesia/Blood Transfusion Reactions: No Reported Reaction Past Psychological History: No Psychological Hx Reported Smoking Status: Former smoker Past Alcohol Use History: Unable to Obtain Past Drug Use History: Unable to Obtain - Past Family History Father History Unknown: Yes Family Medical History: Cancer Additional Family Medical History / Comment(s): prostate CA Medications and Allergies Home Medications Medication Instructions Recorded Confirmed Type Carbidopa-Levodopa 25-250 mg 1 tab PEG/G-TUBE TID 01/17/23 06/10/23 History [Sinemet 25-250 mg] Famotidine 20 mg PEG/G-TUBE BID 05/21/23 06/10/23 History Ipratropium-Albuterol Nebulize 3 ml INHALATION RT-Q6H PRN 05/21/23 06/10/23 History [Duoneb 0.5 mg-3 mg/3 ml Soln] Melatonin 6 mg PEG/G-TUBE HS 05/21/23 06/10/23 History Propylene Glycol/Peg 400/Pf 1 drop BOTH EYES Q2H PRN 05/21/23 06/10/23 History [Systane 0.3-0.4% Ophth Dropperette] Sennosides/Docusate Sodium [Senna 1 tab PEG/G-TUBE BID 05/21/23 06/10/23 History Plus 8.6-50 mg Tablet] amantadine HCL 200 mg PEG/G-TUBE BID 05/21/23 06/10/23 History methocarbamoL [Robaxin] 1,000 mg PEG/G-TUBE Q12H 05/21/23 06/10/23 History methocarbamoL [Robaxin] 1,000 mg PEG/G-TUBE Q6H PRN 05/21/23 06/10/23 History polyethylene glycoL 3350 [Miralax] 17 gm PEG/G-TUBE DAILY PRN 05/21/23 06/10/23 History rOPINIRole HCL [Requip] 4 mg PEG/G-TUBE TID 05/21/23 06/10/23 History Cephalexin [Keflex] 500 mg PEG/G-TUBE Q8H 06/10/23 06/10/23 History Gabapentin [Neurontin] 300 mg PEG/G-TUBE TID 06/10/23 06/10/23 History HYDROcodone/APAP 5-325MG [Clyman 1 tab PEG/G-TUBE Q4-6H PRN 06/10/23 06/10/23 History 5-325] Hyoscyamine Sulfate [Levsin-Sl] 0.125 mg PEG/G-TUBE Q4H PRN 06/10/23 06/10/23 History MORPHINE ORAL MARIPOSA CONC 20mg/mL 5 mg PEG/G-TUBE Q2HR PRN 06/10/23 06/10/23 History [Roxanol Oral Soln Conc 20MG/ML] Mupirocin 2% Oint [Bactroban 2% 1 applic TOPICAL TID 06/10/23 06/10/23 History Oint] Saliva Stimulant Comb. No.3 1 applic DENTAL Q2H PRN MDD oral 06/10/23 06/10/23 History [Biotene Moisturizing Mouth] cavity topically Saliva Stimulant Comb. No.3 1 applic DENTAL TID 06/10/23 06/10/23 History [Biotene Moisturizing Mouth] bisacodyL [Dulcolax] 10 mg RECTAL Q24H PRN 06/10/23 06/10/23 History Allergies Allergy/AdvReac Type Severity Reaction Status Date / Time No Known Allergies Allergy Verified 05/21/23 14:40 Physical Exam Vitals: Vital Signs Temp Pulse Pulse Resp BP BP Pulse Ox 06/11/23 07:40 98.0 F 98 20 131/73 95 06/11/23 04:15 94 16 109/74 95 06/10/23 23:00 98 18 133/87 97 06/10/23 21:38 98 18 160/87 97 06/10/23 20:12 97.8 F 99 18 152/83 97 Intake and Output 06/10/23 06/11/23 06/11/23 22:59 06:59 14:59 Output Total 220 Balance -220 Output: Urine 220 Uretheral (Bowser) 220 Other: Weight 78.925 kg Results CBC & Chem 7: 06/10/23 20:48 06/10/23 20:48 Labs: Abnormal Lab Results - Last 24 Hours (Table) 06/10/23 06/10/23 Range/Units 20:48 20:48 WBC 13.2 H (3.8-10.6) k/uL Hgb 12.0 L (13.0-17.5) gm/dL Hct 37.6 L (39.0-53.0) % RDW 16.2 H (11.5-15.5) % Plt Count 470 H (150-450) k/uL Neutrophils # 10.3 H (1.3-7.7) k/uL Creatinine 0.40 L (0.66-1.25) mg/dL
[2023-06-11 14:09] VITALS: BMI 22.9
[2023-06-11] MEDS: methocarbamoL 500 MG TAB PEG/G-TUBE SCH (14:14)
[2023-06-11] MEDS: HYDROcodone/APAP 5-325MG 1 EACH TAB PEG/G-TUBE PRN (14:21)
--- NOTE | 2023-06-11 15:43 | P.GSCN ---
History of Present Illness Consult date: 06/11/23 History of present illness: CHIEF COMPLAINT: PEG tube malfunction HISTORY OF PRESENT ILLNESS: This is a 68-year-old male with a known history of Parkinson's dementia. Per charting patient had a PEG tube placed 2 months ago. According to the half-way the PEG tube was clogged and not working. Surgical service has been consulted due to the PEG tube malfunction. PAST MEDICAL HISTORY: See list. PAST SURGICAL HISTORY: See list. MEDICATIONS: See list. ALLERGIES: See list. SOCIAL HISTORY: No illicit drug use. REVIEW OF SYSTEMS: CONSTITUTIONAL: Denies fever or chills. HEENT: Denies blurred vision, vision changes, or eye pain. Denies hemoptysis ENDOCRINE: Denies heat or cold intolerance. CARDIOVASCULAR: Denies chest pain or pressure. RESPIRATORY: No shortness of breath. GASTROINTESTINAL: Denies abdominal pain. Denies nausea or vomiting. NEURO: Denies history of seizures. PSYCH: No depression or suicidal ideation HEMATOLOGIC: Denies bleeding disorders. LYMPHATIC: The patient denies any lumps and bumps around the neck. GENITOURINARY: Denies any blood in urine or increased urinary frequency. MUSCULOSKELETAL: Denies myalgias. Denies joint swelling. Denies decreased range of motion beyond patients baseline. SKIN: Denies pruitis. Denies rash. PHYSICAL EXAM: VITAL SIGNS: Reviewed GENERAL: Well-developed in no acute distress. HEENT: No sclera icterus. Extraocular movements grossly intact. Moist buccal mucosa. Head is atraumatic, normocephalic. Hears conversational speech. No nasal drainage. NECK: Supple without lymphadenopathy. CHEST: Non-labored respirations and equal bilateral excursions. CARDIOVASCULAR: Palpable 2+ radial pulses. ABDOMEN: Soft. Nondistended. Nontender MUSCULOSKELETAL: No clubbing or cyanosis. NEUROLOGIC: No focal or lateralizing signs. Cranial nerves II through XII grossly intact. SKIN: Well perfused. Good skin turgor. LABORATORY DATA: WBC 13.2 Hgb 12 platelets 470 Sodium 138 potassium 4.6 creatinine 0.40 IMAGING: ASSESSMENT: 1. PEG tube malfunction PLAN: -Nursing staff did flush PEG tube with Pepsi. PEG tube is now working. They are able to place medications through the PEG tube. Consult dietitian to resume tube feedings -Continue to monitor -At this time no surgical intervention planned Physician [employer] note has been reviewed by physician. Signing provider agrees with the documented findings, assessment, and plan of care. Past Medical History Past Medical History: Hyperlipidemia, Hypertension, Thyroid Disorder Additional Past Medical History / Comment(s): parkinson's, chronic lower back, BPH, Cellulitis b/l LE (12/21/22), hypothyroidism, Dysphagia History of Any Multi-Drug Resistant Organisms: MRSA Year Discovered:: 08/17/20 MDRO Source:: MRSA KNEE Past Surgical History: Orthopedic Surgery Additional Past Surgical History / Comment(s): L leg, right great toe, Cervical decompression and fusion Past Anesthesia/Blood Transfusion Reactions: No Reported Reaction Past Psychological History: No Psychological Hx Reported Smoking Status: Former smoker Past Alcohol Use History: Unable to Obtain Past Drug Use History: Unable to Obtain - Past Family History Father History Unknown: Yes Family Medical History: Cancer Additional Family Medical History / Comment(s): prostate CA Medications and Allergies Home Medications Medication Instructions Recorded Confirmed Type Carbidopa-Levodopa 25-250 mg 1 tab PEG/G-TUBE TID 01/17/23 06/10/23 History [Sinemet 25-250 mg] Famotidine 20 mg PEG/G-TUBE BID 05/21/23 06/10/23 History Ipratropium-Albuterol Nebulize 3 ml INHALATION RT-Q6H PRN 05/21/23 06/10/23 History [Duoneb 0.5 mg-3 mg/3 ml Soln] Melatonin 6 mg PEG/G-TUBE HS 05/21/23 06/10/23 History Propylene Glycol/Peg 400/Pf 1 drop BOTH EYES Q2H PRN 05/21/23 06/10/23 History [Systane 0.3-0.4% Ophth Dropperette] Sennosides/Docusate Sodium [Senna 1 tab PEG/G-TUBE BID 05/21/23 06/10/23 History Plus 8.6-50 mg Tablet] amantadine HCL 200 mg PEG/G-TUBE BID 05/21/23 06/10/23 History methocarbamoL [Robaxin] 1,000 mg PEG/G-TUBE Q12H 05/21/23 06/10/23 History methocarbamoL [Robaxin] 1,000 mg PEG/G-TUBE Q6H PRN 05/21/23 06/10/23 History polyethylene glycoL 3350 [Miralax] 17 gm PEG/G-TUBE DAILY PRN 05/21/23 06/10/23 History rOPINIRole HCL [Requip] 4 mg PEG/G-TUBE TID 05/21/23 06/10/23 History Cephalexin [Keflex] 500 mg PEG/G-TUBE Q8H 06/10/23 06/10/23 History Gabapentin [Neurontin] 300 mg PEG/G-TUBE TID 06/10/23 06/10/23 History HYDROcodone/APAP 5-325MG [[place] 1 tab PEG/G-TUBE Q4-6H PRN 06/10/23 06/10/23 History 5-325] Hyoscyamine Sulfate [Levsin-Sl] 0.125 mg PEG/G-TUBE Q4H PRN 06/10/23 06/10/23 History MORPHINE ORAL MARIPOSA CONC 20mg/mL 5 mg PEG/G-TUBE Q2HR PRN 06/10/23 06/10/23 History [Roxanol Oral Soln Conc 20MG/ML] Mupirocin 2% Oint [Bactroban 2% 1 applic TOPICAL TID 06/10/23 06/10/23 History Oint] Saliva Stimulant Comb. No.3 1 applic DENTAL Q2H PRN MDD oral 06/10/23 06/10/23 History [Biotene Moisturizing Mouth] cavity topically Saliva Stimulant Comb. No.3 1 applic DENTAL TID 06/10/23 06/10/23 History [Biotene Moisturizing Mouth] bisacodyL [Dulcolax] 10 mg RECTAL Q24H PRN 06/10/23 06/10/23 History Allergies Allergy/AdvReac Type Severity Reaction Status Date / Time No Known Allergies Allergy Verified 05/21/23 14:40 Surgical - Exam Vital Signs Temp Pulse Resp BP Pulse Ox 97.8 F 99 18 152/83 97 06/10/23 20:12 06/10/23 20:12 06/10/23 20:12 06/10/23 20:12 06/10/23 20:12 Results - Labs 06/10/23 20:48 06/10/23 20:48 Abnormal Lab Results - Last 24 Hours (Table) 06/10/23 06/10/23 Range/Units 20:48 20:48 WBC 13.2 H (3.8-10.6) k/uL Hgb 12.0 L (13.0-17.5) gm/dL Hct 37.6 L (39.0-53.0) % RDW 16.2 H (11.5-15.5) % Plt Count 470 H (150-450) k/uL Neutrophils # 10.3 H (1.3-7.7) k/uL Creatinine 0.40 L (0.66-1.25) mg/dL Diabetes panel 06/10/23 Range/Units 20:48 Sodium 138 (137-145) mmol/L Potassium 4.6 (3.5-5.1) mmol/L Chloride 102 (98-107) mmol/L Carbon Dioxide 30 (22-30) mmol/L BUN 16 (9-20) mg/dL Creatinine 0.40 L (0.66-1.25) mg/dL Glucose 94 (74-99) mg/dL Calcium 9.3 (8.4-10.2) mg/dL Calcium panel 06/10/23 Range/Units 20:48 Calcium 9.3 (8.4-10.2) mg/dL Pituitary panel 06/10/23 Range/Units 20:48 Sodium 138 (137-145) mmol/L Potassium 4.6 (3.5-5.1) mmol/L Chloride 102 (98-107) mmol/L Carbon Dioxide 30 (22-30) mmol/L BUN 16 (9-20) mg/dL Creatinine 0.40 L (0.66-1.25) mg/dL Glucose 94 (74-99) mg/dL Calcium 9.3 (8.4-10.2) mg/dL Adrenal panel 06/10/23 Range/Units 20:48 Sodium 138 (137-145) mmol/L Potassium 4.6 (3.5-5.1) mmol/L Chloride 102 (98-107) mmol/L Carbon Dioxide 30 (22-30) mmol/L BUN 16 (9-20) mg/dL Creatinine 0.40 L (0.66-1.25) mg/dL Glucose 94 (74-99) mg/dL Calcium 9.3 (8.4-10.2) mg/dL
[2023-06-11] MEDS: CARBIDOPA-LEVODOPA 25-250 MG 1 EACH TAB PO SCH (16:46)
[2023-06-11] MEDS: GABAPENTIN 300 MG CAP PEG/G-TUBE SCH (16:46)
[2023-06-11] MEDS: rOPINIRole HCL 4 MG TABLET PEG/G-TUBE SCH (16:46)
[2023-06-11] MEDS: MORPHINE ORAL SOLN 10 MG/5 ML CUP PEG/G-TUBE PRN (16:47)
[2023-06-11] MEDS: FAMOTIDINE 20 MG TAB PEG/G-TUBE SCH (20:36)
[2023-06-12 07:33] VITALS: BP 131/74; PULSE 88; RESP 16; TEMP 97.6
--- NOTE | 2023-06-12 10:21 | P.DS ---
Providers Date of admission: 06/10/23 21:48 Expected date of discharge: 06/12/23 Attending physician: Kalyn Montesinos DO Consults: 06/10/23 21:11 Consult Physician Routine Consulting Provider: Elenita Hair Consult Reason/Comments: peg tube malfunction Do you want consulting provider notified?: Already Contacted Primary care physician: [facility] Course: 68-year-old male long term resident with history of Parkinson's disease, prior cervical decompression and fusion, PEG on tube feeds, hypertension, dyslipidemia, BPH, hypothyroidism presenting with malfunctioning PEG tube. He was previously admitted and discharged to [facility] on comfort measures. In the ED he underwent extensive evaluation. Vital signs shows tachycardia with HR of 99. CBC and BMP significant for WBC 13.2, Hg 12, Hct 37.6, Plt 470, Cr 0.4. EKG sinus tachycardia with HR of 100. Surgery consulted, recommended no surgical intervention. PEG tube was flushed with Pepsi and started working again. TF were restarted. Patient is discharged back to [facility] on comfort measures. 06/12 Patient was seen and examined. No acute events overnight. Discussed with nursing. Pertinent procedures and studies as above. Vital signs reviewed General: Nontoxic, no distress, appears at stated age, obese Cardiovascular: S1S2 reg, no murmur Lungs: Clear to auscultation bilaterally, no rhonchi, no rales, no accessory muscle use Abdominal: Soft, nontender to palpation, no guarding, PEG+ Ext: No gross muscle atrophy, no edema b/l lower extremities, no contractures Neuro: Tremors with rigidity Psych: Unable to determine Discharge Diagnosis: Malfunctioning PEG tube Leukocytosis Large chronic stage IV sacral decubitus ulcer Parkinson's disease History of cervical decompression and fusion Chronic neuropathy Hypertension Dyslipidemia BPH Hypothyroidism Restless leg syndrome This complex discharge took 35 minutes to complete. Patient Condition at Discharge: Stable Plan - Discharge Summary Discharge Rx Participant: Yes New Discharge Prescriptions: Continue Ipratropium-Albuterol Nebulize [Duoneb 0.5 mg-3 mg/3 ml Soln] 3 ml INHALATION RT-Q6H PRN PRN Reason: Shortness Of Breath Or Wheezing methocarbamoL [Robaxin] 1,000 mg PEG/G-TUBE Q12H Sennosides/Docusate Sodium [Senna Plus 8.6-50 mg Tablet] 1 tab PEG/G-TUBE BID amantadine HCL 200 mg PEG/G-TUBE BID rOPINIRole HCL [Requip] 4 mg PEG/G-TUBE TID Saliva Stimulant Comb. No.3 [Biotene Moisturizing Mouth] 1 applic DENTAL TID Mupirocin 2% Oint [Bactroban 2% Oint] 1 applic TOPICAL TID MORPHINE ORAL MARIPOSA CONC 20mg/mL [Roxanol Oral Soln Conc 20MG/ML] 5 mg PEG/G- TUBE Q2HR PRN PRN Reason: Pain Cephalexin [Keflex] 500 mg PEG/G-TUBE Q8H bisacodyL [Dulcolax] 10 mg RECTAL Q24H PRN PRN Reason: Constipation Carbidopa-Levodopa 25-250 mg [Sinemet 25-250 mg] 1 tab PEG/G-TUBE TID polyethylene glycoL 3350 [Miralax] 17 gm PEG/G-TUBE DAILY PRN PRN Reason: No BM for 2 days methocarbamoL [Robaxin] 1,000 mg PEG/G-TUBE Q6H PRN PRN Reason: Muscle Pain Famotidine 20 mg PEG/G-TUBE BID Melatonin 6 mg PEG/G-TUBE HS Propylene Glycol/Peg 400/Pf [Systane 0.3-0.4% Ophth Dropperette] 1 drop BOTH EYES Q2H PRN PRN Reason: eye discomfort/redness Saliva Stimulant Comb. No.3 [Biotene Moisturizing Mouth] 1 applic DENTAL Q2H PRN MDD oral cavity topically PRN Reason: Dry Mouth Hyoscyamine Sulfate [Levsin-Sl] 0.125 mg PEG/G-TUBE Q4H PRN PRN Reason: airway patency HYDROcodone/APAP 5-325MG [[place] 5-325] 1 tab PEG/G-TUBE Q4-6H PRN PRN Reason: Pain Gabapentin [Neurontin] 300 mg PEG/G-TUBE TID Discharge Medication List Carbidopa-Levodopa 25-250 mg [Sinemet 25-250 mg] 1 tab PEG/G-TUBE TID 01/17/23 [History] Famotidine 20 mg PEG/G-TUBE BID 05/21/23 [History] Ipratropium-Albuterol Nebulize [Duoneb 0.5 mg-3 mg/3 ml Soln] 3 ml INHALATION RT-Q6H PRN 05/21/23 [History] Melatonin 6 mg PEG/G-TUBE HS 05/21/23 [History] Propylene Glycol/Peg 400/Pf [Systane 0.3-0.4% Ophth Dropperette] 1 drop BOTH EYES Q2H PRN 05/21/23 [History] Sennosides/Docusate Sodium [Senna Plus 8.6-50 mg Tablet] 1 tab PEG/G-TUBE BID 05/21/23 [History] amantadine HCL 200 mg PEG/G-TUBE BID 05/21/23 [History] methocarbamoL [Robaxin] 1,000 mg PEG/G-TUBE Q12H 05/21/23 [History] methocarbamoL [Robaxin] 1,000 mg PEG/G-TUBE Q6H PRN 05/21/23 [History] polyethylene glycoL 3350 [Miralax] 17 gm PEG/G-TUBE DAILY PRN 05/21/23 [History] rOPINIRole HCL [Requip] 4 mg PEG/G-TUBE TID 05/21/23 [History] Cephalexin [Keflex] 500 mg PEG/G-TUBE Q8H 06/10/23 [History] Gabapentin [Neurontin] 300 mg PEG/G-TUBE TID 06/10/23 [History] HYDROcodone/APAP 5-325MG [[place] 5-325] 1 tab PEG/G-TUBE Q4-6H PRN 06/10/23 [History] Hyoscyamine Sulfate [Levsin-Sl] 0.125 mg PEG/G-TUBE Q4H PRN 06/10/23 [History] MORPHINE ORAL MARIPOSA CONC 20mg/mL [Roxanol Oral Soln Conc 20MG/ML] 5 mg PEG/G-TUBE Q2HR PRN 06/10/23 [History] Mupirocin 2% Oint [Bactroban 2% Oint] 1 applic TOPICAL TID 06/10/23 [History] Saliva Stimulant Comb. No.3 [Biotene Moisturizing Mouth] 1 applic DENTAL Q2H PRN MDD oral cavity topically 06/10/23 [History] Saliva Stimulant Comb. No.3 [Biotene Moisturizing Mouth] 1 applic DENTAL TID 06/10/23 [History] bisacodyL [Dulcolax] 10 mg RECTAL Q24H PRN 06/10/23 [History] Follow up Appointment(s)/Referral(s): Jorge Luis Velázquez DO [Primary Care Provider] - 1-2 days Discharge Disposition: TRANSFER TO SNF/ECF
--- NOTE | 2023-06-12 13:51 | P.PN ---
Subjective Progress Note Date: 06/12/23 CHIEF COMPLAINT: PEG tube malfunction HISTORY OF PRESENT ILLNESS: Patient is PEG tube is functioning after being flushed with Pepsi. Patient's tube feeds have been resumed. He is tolerating tube feeds. Medications have also been able to go down PEG tube. Patient scheduled for discharge today. PHYSICAL EXAM: VITAL SIGNS: Reviewed. GENERAL: Well-developed in no acute distress. ABDOMEN: Soft. Nondistended. Nontender. PEG tube site clean dry and intact NEUROLOGIC: Awake ASSESSMENT: 1. PEG tube malfunction PLAN: -PEG tube is now functioning. Tube feeds have been resumed -No surgical intervention planned -Patient can be discharged from surgical standpoint Physician [employer] note has been reviewed by physician. Signing provider agrees with the documented findings, assessment, and plan of care. Objective - Vital Signs Vital signs: Vital Signs Temp 97.6 F 06/12/23 06:55 Pulse 88 06/12/23 08:00 Resp 16 06/12/23 08:00 BP 131/74 06/12/23 06:55 Pulse Ox 95 06/12/23 06:55 FiO2 Intake & Output 06/11/23 06/12/23 06/12/23 18:59 06:59 18:59 Output Total 600 Balance -600 Weight 78.925 kg 77.3 kg Output: Urine 600 Other: Voiding Method Indwelling Catheter Indwelling Catheter - Labs CBC & Chem 7: 06/10/23 20:48 06/10/23 20:48
== END 2023-06-12 14:01 ==
LOC: EC 20:09 → 6NMEDSUR 21:48
PROVIDERS: ADMIT Internal Medicine; ATTEND Internal Medicine
DX: K94.23 Gastrostomy malfunction (principal); R13.10 Dysphagia, unspecified; G20.A1 Parkinson's disease without dyskinesia, without mention of fluctuations; F02.80 Dementia in other diseases classified elsewhere, unspecified severity, without behavioral disturbance, psychotic disturbance, mood disturbance, and anxiety; E78.5 Hyperlipidemia, unspecified; I10 Essential (primary) hypertension; N40.0 Benign prostatic hyperplasia without lower urinary tract symptoms; E03.9 Hypothyroidism, unspecified; G62.9 Polyneuropathy, unspecified; G89.4 Chronic pain syndrome; L89.154 Pressure ulcer of sacral region, stage 4; F51.04 Psychophysiologic insomnia; G25.81 Restless legs syndrome; R54 Age-related physical debility; Z66 Do not resuscitate; Z87.891 Personal history of nicotine dependence; Z98.1 Arthrodesis status; Z79.899 Other long term (current) drug therapy
CPT/HCPCS: 99284; 36415; 93005; 80048; 85025; G0378 ×4